=== PATIENT | male | born 1970 | race Caucasian/White ===

== ENCOUNTER 2016-06-05 12:57 | Inpatient (IN) | payer OTHER, MEDICARE ==
[~2016-06-05] VITALS: Ht 162.6 cm; Wt 86.2 kg
[~2016-06-05 12:57] MED LIST: ADVAIR DISKU 11 UNIT INH; BENZTROPINE MESY1 MG PO; BENZTROPINE1 MG PO; JANUMET 1000 MG1 TAB PO; JANUVIA 50MG50 MG PO; LEADER MELATONIN5 MG PO; LITHIUM CARBON300 M3 PO; LITHIUM CARBON450 MG PO; LITHIUM CARBON600 MG PO; METFORMIN1000 MG PO; METHADONE HCL10 M1 PO; NEURONTIN300 MG PO; RISPERDAL1 M1 PO; TRAMADOL50 MG PO; TRAZODONE100 MG PO; ZYPREXA15 MG PO
--- NOTE | 2016-06-05 13:08 | NUR ---
PT TO ED C/O SI THOUGHTS AND HEARING VOICES. STATES INCREASE IN DEPRESSION LATELY. HAS BEEN ABUSING DRUGS SUCH , MORPHINE, BENZO'S, COCAINE AND HEROIN. STATES LAST USED YESTERDAY. STATES HE USES DRUGS SO HE DOESN'T HEAR THE VOICES. DENIES HI. STATES HIS PLAN TO KILL HIMSELF WOULD BE TO TAKE ALL HIS AMBIEN, "I HAVE 60 PILLS". PT TAKEN TO ER ROOM 14 BY MST.
--- NOTE | 2016-06-05 13:12 | ED PSYCHIATRIC COMPLAINT ---
See Addendum History of Present Illness General Chief Complaint: Psychiatric Related Complaint Stated Complaint: + SI/HEARING VOICES Source: patient Exam Limitations: no limitations Vital Signs & Intake/Output Vital Signs & Intake/Output Vital Signs Date Time Temp Pulse Resp B/P Pulse O2 O2 Flow FiO2 Ox Delivery Rate 06/06 0655 97.9 83 18 153/87 96 Room Air 06/05 2253 98.2 96 16 142/84 94 Room Air 06/05 1847 98 06/05 1303 96.5 82 20 141/82 98 Room Air ED Intake and Output 06/06 0000 06/05 1200 Intake Total 0 Output Total Balance 0 Intake, Oral 0 Patient 190 lb Weight Allergies Coded Allergies: trazodone (Severe, PRIAPISM 12/25/15) hydroxyzine (From Vistaril) (Intermediate, RESTLESSNESS, SHAKINESS 12/25/15) diphenhydramine (From BENADRYL) (Mild, shaky but not as bad as Vistaril 02/02/16 ) ibuprofen (not to take ibuprofen/Motrin while on [place] prophylaxis 02/03/16) Reconcile Medications Amlodipine Besylate 5 MG TABLET 1 TAB PO DAILY BP (Reported) Benztropine Mesylate 0.5 MG TABLET 1 TAB PO TID MENTAL HEALTH (Reported) Fluoxetine HCl 10 MG CAPSULE 1 CAP PO DAILY MENTAL HEALTH (Reported) Fluticasone/Salmeterol (Advair 250-50 Diskus) 250 MCG-50 MCG/DOSE BLST.W.DEV 1 PUF INH BID RESPIRATORY (Reported) Gabapentin 300 MG CAPSULE 1 CAP PO TID UNKNOWN (Reported) Insulin NPH Human Isophane (Novolin N) 100 UNIT/ML VIAL 10 UNITS SC BID DM ( Reported) Levalbuterol Tartrate (Xopenex Hfa) 45 MCG/ACTUATION HFA.AER.AD 1-2 PUF INH Q4H PRN WHEEZE (Reported) [place] Carbonate 300 MG CAPSULE 1 CAP PO QAM MENTAL HEALTH (Reported) [place] Carbonate 300 MG TABLET 2 TAB PO QHS MENTAL HEALTH (Reported) Metformin HCl 850 MG TABLET 1 TAB PO BID DM (Reported) Mirtazapine 7.5 MG TABLET 1 TAB PO QHS MENTAL HEALTH (Reported) Prednisone (Unknown Strength) TABLET (Unknown Dose) PO AD STEROID TAPER ( Reported) Risperidone 2 MG TABLET 2 TAB PO QHS UNKNOWN (Reported) Sitagliptin Phosphate (Januvia) 100 MG TABLET 1 TAB PO DAILY DM (Reported) Zolpidem Tartrate 10 MG TABLET 1 TAB PO QPM SLEEP (Reported) Triage Note: PT TO ED C/O SI THOUGHTS AND HEARING VOICES. STATES INCREASE IN DEPRESSION LATELY. HAS BEEN ABUSING DRUGS SUCH , MORPHINE, BENZO'S, COCAINE AND HEROIN. STATES LAST USED YESTERDAY. STATES HE USES DRUGS SO HE DOESN'T HEAR THE VOICES. DENIES HI. STATES HIS PLAN TO KILL HIMSELF WOULD BE TO TAKE ALL HIS AMBIEN, "I HAVE 60 PILLS". PT TAKEN TO ER ROOM 14 BY MST. Triage Nurses Notes Reviewed? yes Onset: Gradual Duration: week(s): (1) Timing: recent history Severity: severe Severity Numbers: 10 Associated Symptoms: anxiety, impaired concentration, insomnia, suicidal ideation HPI: Patient is a 46-year-old male with history of depression and anxiety presenting to the emergency department with chief complaint of suicidal ideation. Also reporting auditory hallucinations. The voices are telling him to do drugs. Patient reports that he is a polysubstance abuser, uses cocaine, heroin. Denies alcohol use. Denies any visual hallucinations. He is unsure if he isn't taking his mood stabilizing medications. He sees Dr. ARNDT. Unsure the last time he saw him. Denies any nausea vomiting fevers or chills chest pain or shortness of breath. Denies palpitations. (ENE BETANCOURT,DAYSI) Past History Travel History Traveled to [place] past 21 day No Medical History Any Pertinent Medical History? see below for history Neurological: NONE EENT: NONE Cardiovascular: NONE Respiratory: asthma Gastrointestinal: NONE Hepatic: hepatitis C Renal: NONE Musculoskeletal: leg and right arm pain due to past surgeries Psychiatric: anxiety, chronic pain disorder, depression, opioid dependence, psychosis (with schizoaffective episodes), schizo affective disorder, substance abuse, Schizoaffective disorder, bipolar type, severe; MRE mixed, with psychotic features. Cocaine use disorder. Cocaine intoxication. Sedative hypnotic use disorder (benzodiazepines). Benzodiazepine intoxication. Opioid use disorder. Opioid intoxication. Cocaine Use Disorder Cocaine Intoxication Benzo.(Xanax)Use Disorder Benzo. 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 No (DAYSI NEAL) Review of Systems Review of Systems Constitutional: Reports: no symptoms. Comments Review of systems: See HPI, All other systems negative. Constitutional, no chills fever or weight loss HEENT: No visual changes no sore throat no congestion Cardiovascular: No chest pain ,palpitation Skin, no jaundice no rashes Respiratory: No dyspnea cough sputum or hemoptysis GI: No nausea no vomiting : No dysuria No hematuria Muscle skeletal: no back pain, no neck pain, Neurologic: No numbness no confusion Psych: INCREASED STERSS AND DEPRESSION Heme/endocrine: No bruising no bleeding no polyuria or polydipsia Immunology: No splenectomy or history of AIDS (DAYSI NEAL) Physical Exam Physical Exam General Appearance: well developed/nourished, no apparent distress, alert, awake , comfortable Neurological/Psychiatric: oriented x 3 Comments: Well-developed well-nourished person in no acute distress HEENT: Pupils equally round and reactive to light and accommodation. Nose is atraumatic. Neck: Normal inspection Back: NontendeR Cardiovascular: Regular rate and rhythms no murmurs rubs or gallops, normal JVP Respiratory: Chest nontender. No respiratory distress.breath sounds clear to auscultation bilaterally Extremity: No edema Neuro: Alert oriented x3 Skin: No appreciable rash on exposed skin, skin is warm and dry. Psych: Flattened affect SAD PERSONS SAD PERSONS Response Value Male Sex? yes 1 Age <19 or >45 years? yes 1 Depression/Hopelessness? yes 2 Previous Attempts/Psych Care yes 1 Excessive Ethanol/Drug Use? yes 1 Rational Thinking Loss? yes 2 Social Support? has no support 1 Stated Future Intent? yes 2 Total 11 SAD PERSONS Done? yes (DAYSI NEAL) Progress Differential Diagnosis: A SUBSTANCE ABUSE, MAJOR DEPRESSIVE DISORDER, MOOD DISORDER Plan of Care: Orders Procedure Date/time Status Regular Diet 06/06 B Active Admit to inpatient psych 06/06 1012 Active Continuous Observation Monitor 06/06 0926 Active Add-on Test (ER Only) 06/05 1358 Active LITHIUM 06/05 1324 Complete Patient Safety Monitor 06/05 1322 Active URINE DRUG SCREEN FOR ER ONLY 06/05 1312 Complete TSH REFLEX 06/05 131 Complete ETHANOL 06/05 131 Complete COMPREHENSIVE METABOLIC PANEL 06/05 131 Complete CBC WITHOUT DIFFERENTIAL 06/05 131 Complete ED CRISIS PSYCH CONSULT 06/05 1312 Active Laboratory Tests 06/05/16 1325: Urine Opiates Screen > 4000.00 H, Methadone Screen 212, Barbiturate Screen < 60 , Ur Phencyclidine Scrn < 6.00, Amphetamines Screen < 100, U Benzodiazepines Scrn < 85, Urine Cocaine Screen > 1000 H, Urine Cannabis Screen < 5.00 06/05/16 1324: Anion Gap 9, Estimated GFR > 60, BUN/Creatinine Ratio 10.0, Glucose 159 H, Calcium 9.3, Total Bilirubin 0.6, AST 106 H, ALT 107 H, Alkaline Phosphatase 64, Total Protein 6.4, Albumin 3.6, Globulin 2.8, Albumin/Globulin Ratio 1.3, TSH &T3 &Free T4 Intrp 0.565, CBC w Diff NO MAN DIFF REQ, RBC 4.20 L, MCV 86.2, MCH 28.7, RDW 14.1, MPV 7.0 L, Gran % 73.1, Lymphocytes % 20.3 L, Monocytes % 4.4, Eosinophils % 1.8, Basophils % 0.4, Absolute Granulocytes 5.8, Absolute Lymphocytes 1.6, Absolute Monocytes 0.3, Absolute Eosinophils 0.1, Absolute Basophils 0, PUBS MCHC 33.3, [place] < 0.2 L, Serum Alcohol < 10.0 Hand-Off Endorsed To: CLEO CHAPMAN MD Endorsed Time: 170 Pending: consult Comments: Patient will be evaluated for crisis consultation. Dr. Cleo Chapman MD pending consultation. (DAYSI NEAL) Hand-Off Endorsed To: SADIE LINN,YUDY Pink Endorsed Time: 190 Pending: consult (CRISIS) (CLEO CHAPMAN MD) Hand-Off Endorsed To: LOBO AKHTAR DO Endorsed Time: 0700 Pending: consult (SADIE LINN,YUDY Pink) Departure Departure Disposition: STILL A PATIENT Condition: Stable Clinical Impression Primary Impression: Depression Qualifiers: Depression Type: unspecified Qualified Code: F32.9 - Major depressive disorder, single episode, unspecified Referrals: MAIRA CASTELLON (PCP/Family) Departure Forms: Customer Survey General Discharge Information (DAYSI NEAL) PA/STILL PUMP OPERATOR Co-Sign Statement Statement: ED Attending supervision documentation- [X] I saw and evaluated the patient. I have also reviewed all the pertinent lab results and diagnostic results. I agree with the findings and the plan of care as documented in the PA's/STILL PUMP OPERATOR's documentation. [X] I have reviewed the ED Record and agree with the PA's/STILL PUMP OPERATOR's documentation. [] Additions or exceptions (if any) to the PAs/STILL PUMP OPERATOR's note and plan are summarized below: [] (SADIE LINN,YUDY Pink) Departure Comments 06/06/16 The patient was signed out to me by Dr. Dickinson. He is for admission to Inpatient Psychiatry. (LOBO AKHTAR DO)
--- NOTE | 2016-06-05 13:25 | NUR ---
WANDED BY SECURITY, CHANGED INTO BLUE PAPER SCRUBS. LABS DRAWN.
--- NOTE | 2016-06-05 13:28 | NUR ---
BLOOD DRAWN AND SENT TO LAB.
[2016-06-05 13:33] LABS: ABSOLUTE BASOPHIL COUNT 0 /CUMM (0.0-0.2); ABSOLUTE EOSINOPHIL COUNT 0.1 /CUMM (0.0-0.7); ABSOLUTE GRANULOCYTE CT 5.8 /CUMM (1.4-6.5); ABSOLUTE LYMPH COUNT 1.6 /CUMM (1.2-3.4); ABSOLUTE MONOCYTE COUNT 0.3 /CUMM (0.10-0.60); BASOPHIL % 0.4 % (0.0-2.0); EOSINOPHIL % 1.8 % (0-5); GRANULOCYTE % 73.1 % (42.2-75.2); HEMATOCRIT 36.2 % (42-52); MEAN CORPUSCULAR HGB 28.7 PG (27.0-31.0); MEAN CORPUSCULAR HGB CONC 33.3 G/DL (33.0-37.0); MEAN CORPUSCULAR VOLUME 86.2 FL (80.0-94.0); PLATELET COUNT 245 /CUMM (130-400); RBC DISTRIBUTION WIDTH 14.1 % (11.5-14.5); WHITE BLOOD CELL COUNT 7.9 /CUMM (4.8-10.8)
--- NOTE | 2016-06-05 13:35 | NUR ---
2 BELONGINGS BAGS AND PERSONAL DUFFLE TO CLOSET. 1 VALUABLES
--- NOTE | 2016-06-05 13:43 | NUR ---
URINE TRIO SENT TO LAB
[2016-06-05 14:25] LABS: LITHIUM < 0.2 mmol/L (0.6-1.2)
[2016-06-05] MEDS ORDERED: FLUOXETINE HCL10 M2 PO (16:33)
[2016-06-05] MEDS ORDERED: LITHIUM CARBON300 M4 PO (16:33)
[2016-06-05] MEDS ORDERED: RISPERIDONE2 M1 PO (16:33)
[2016-06-05] MEDS ORDERED: MIRTAZAPINE7.5 M1 PO (16:34)
[2016-06-05] MEDS ORDERED: LITHIUM CARBON300 M5 PO (16:36)
[2016-06-05] MEDS ORDERED: PREDNISONE5 M1 PO (16:36)
[2016-06-05] MEDS ORDERED: NOVOLIN N100 UNIT/1 SC (16:37)
[2016-06-05] MEDS ORDERED: ADVAIR 250-501 EACH INH (16:38)
[2016-06-05] MEDS ORDERED: BENZTROPINE ME0.5 M1 PO (16:38)
[2016-06-05] MEDS ORDERED: AMLODIPINE BESYL5 M1 PO (16:38)
[2016-06-05] MEDS ORDERED: JANUVIA100 M1 PO (16:38)
[2016-06-05] MEDS ORDERED: GABAPENTIN300 M2 PO (16:38)
[2016-06-05] MEDS ORDERED: XOPENEX HFA15 GM INH (16:39)
[2016-06-05] MEDS ORDERED: METFORMIN HCL850 M1 PO (16:39)
[2016-06-05] MEDS ORDERED: ZOLPIDEM TARTRA10 M1 PO (16:39)
--- NOTE | 2016-06-05 18:11 | NUR ---
PT SLEEPING, SITTER PRESENT FOR SAFETY
--- NOTE | 2016-06-05 18:17 | NUR ---
Crisis evaluation completed and reviewed with on - call psychiatrist Dr. Muñoz. Patient to be held until an inpatient psychiatric admission can be secured. No availability at [facility] currently. Bed search to be done for other hospitals.
--- NOTE | 2016-06-05 18:52 | NUR ---
RT AT BEDSIDE FOR ALBUTEROL TX AND PHARM CALLED FOR SYMBACORT
--- NOTE | 2016-06-05 19:16 | ED PSYCH CRISIS CONSULTATION ---
See Addendum Crisis Consult Basic Assessment Date of Consult: 06/05/16 Responsible Person/Accompanied By: Patient drove himself to emergency room. Insurance Authorization: Insurance #1: Insurance name: MEDICARE A Phone number: Policy number: [id number] Group number: Authorization number: ED Provider: Patient's ED Provider: DAYSI NEAL Primary Care Physician: Patient's PCP: MAIRA CASTELLON PCP's Current Psychiatrist: Dr. Minerva Herrera Chief Complaint: Psychiatric - Suicidal ideation Patient's Quote: "Cause I wanna kill myself...I'll be at peace.Is there a reason not to?" Present Illness: Patient is a 46 year old male who presents to the emergency department with suicidal ideation, intent, and a plan to overdose with ~2 whole bottles of Ambien. Patient reports he drove himself to the emergency department to find out if "there's a reason not to take the pills." Pt. is requesting to speak with Dr. Gene Klein, a staff psychiatrist at [place]. Pt. denies any recent changes, stressors, or events which led to increasing suicidality. Pt. indicates he has support of a visiting nurse and a residential door unit installer. Pt. is on lithium medication as well as several other psychotropics. Pt. endorses visual and audio hallucinations with content of a deep male "demon" voice and sight of decomposing bodies. Pt. did not identify any collateral contacts - he expressed a fear they would stop him from following through with his suicide plan. Pt. states "I want them to find my notes...it felt good good to buy those prescriptions...I'll be at peace." Pt. indicates one previous suicide attempt ~6 years ago by consuming unspecified prescription pills. Pt. reports extreme leg pain (7 on a 1-10 scale) and denies other somatic complaints. Patient's urine toxicology report is positive for opioids and cocaine which pt. admits to taking a few days ago. Pt. has longstanding substance use and mental health issues secondary to schizoaffective / bipolar disorder. *See collateral note Patient's Address: [address] [place] [address] Other Phone Number: Who Do You Live With? Patient/Self Family/Informants Interviewed: No family could be reached. Pt. declined offering any family contacts. Collateral obtained from [facility] and [facility]. Allergies - Coded Allergies: trazodone (Severe, PRIAPISM 12/25/15) hydroxyzine (From Vistaril) (Intermediate, RESTLESSNESS, SHAKINESS 12/25/15) diphenhydramine (From BENADRYL) (Mild, shaky but not as bad as Vistaril 02/02/16 ) ibuprofen (not to take ibuprofen/Motrin while on [place] prophylaxis 02/03/16) Current Medications - Scheduled Medications Amlodipine Besylate 5 MG TABLET 1 TAB PO DAILY BP #15 (Reported) Entered as Reported by RAND MARIANO on 06/05/16 1638 Benztropine Mesylate 0.5 MG TABLET 1 TAB PO TID MENTAL HEALTH #45 (Reported) Entered as Reported by RAND MARIANO on 06/05/16 1638 Fluoxetine HCl 10 MG CAPSULE 1 CAP PO DAILY MENTAL HEALTH #30 (Reported) Entered as Reported by RAND MARIANO on 06/05/16 1633 Fluticasone/Salmeterol (Advair 250-50 Diskus) 250 MCG-50 MCG/DOSE BLST.W.DEV 1 PUF INH BID RESPIRATORY #60 (Reported) Entered as Reported by RAND MARIANO on 06/05/16 1638 Gabapentin 300 MG CAPSULE 1 CAP PO TID UNKNOWN #45 (Reported) Entered as Reported by RAND MARIANO on 06/05/16 1638 Insulin NPH Human Isophane (Novolin N) 100 UNIT/ML VIAL 10 UNITS SC BID DM #10 VIAL (Reported) Entered as Reported by RAND MARIANO on 06/05/16 1637 [place] Carbonate 300 MG CAPSULE 1 CAP PO QAM MENTAL HEALTH #90 (Reported) Entered as Reported by RAND MARIANO on 06/05/16 1633 [place] Carbonate 300 MG TABLET 2 TAB PO QHS MENTAL HEALTH (Reported) Entered as Reported by RAND MARIANO on 06/05/16 1636 Metformin HCl 850 MG TABLET 1 TAB PO BID DM #30 (Reported) Entered as Reported by RAND MARIANO on 06/05/16 1639 Mirtazapine 7.5 MG TABLET 1 TAB PO QHS MENTAL HEALTH #30 (Reported) Entered as Reported by RAND MARIANO on 06/05/16 1634 Prednisone (Unknown Strength) TABLET (Unknown Dose) PO AD STEROID TAPER #30 ( Reported) Entered as Reported by RAND MARIANO on 06/05/16 1636 Risperidone 2 MG TABLET 2 TAB PO QHS UNKNOWN #60 (Reported) Entered as Reported by RAND MARIANO on 06/05/16 1633 Sitagliptin Phosphate (Januvia) 100 MG TABLET 1 TAB PO DAILY DM #15 (Reported ) Entered as Reported by RAND MARIANO on 06/05/16 1638 Zolpidem Tartrate 10 MG TABLET 1 TAB PO QPM SLEEP #15 (Reported) Entered as Reported by RAND MARIANO on 06/05/16 1639 Scheduled PRN Medications Levalbuterol Tartrate (Xopenex Hfa) 45 MCG/ACTUATION HFA.AER.AD 1-2 PUF INH Q4H PRN WHEEZE #15 (Reported) Entered as Reported by RAND MARIANO on 06/05/16 1639 Laboratory Results: Laboratory Tests 06/05/16 1325: Urine Opiates Screen > 4000.00 H, Methadone Screen 212, Barbiturate Screen < 60 , Ur Phencyclidine Scrn < 6.00, Amphetamines Screen < 100, U Benzodiazepines Scrn < 85, Urine Cocaine Screen > 1000 H, Urine Cannabis Screen < 5.00 06/05/16 1324: Anion Gap 9, Estimated GFR > 60, BUN/Creatinine Ratio 10.0, Glucose 159 H, Calcium 9.3, Total Bilirubin 0.6, AST 106 H, ALT 107 H, Alkaline Phosphatase 64, Total Protein 6.4, Albumin 3.6, Globulin 2.8, Albumin/Globulin Ratio 1.3, TSH &T3 &Free T4 Intrp 0.565, CBC w Diff NO MAN DIFF REQ, RBC 4.20 L, MCV 86.2, MCH 28.7, RDW 14.1, MPV 7.0 L, Gran % 73.1, Lymphocytes % 20.3 L, Monocytes % 4.4, Eosinophils % 1.8, Basophils % 0.4, Absolute Granulocytes 5.8, Absolute Lymphocytes 1.6, Absolute Monocytes 0.3, Absolute Eosinophils 0.1, Absolute Basophils 0, PUBS MCHC 33.3, [place] < 0.2 L, Serum Alcohol < 10.0 Past History Past Medical History Any Pertinent Medical History? unobtainable Neurological: NONE EENT: NONE Cardiovascular: NONE Respiratory: asthma Gastrointestinal: NONE Hepatic: hepatitis C Renal: NONE Musculoskeletal: leg and right arm pain due to past surgeries Psychiatric: anxiety, chronic pain disorder, depression, opioid dependence, psychosis (with schizoaffective episodes), schizo affective disorder, substance abuse, Schizoaffective disorder, bipolar type, severe; MRE mixed, with psychotic features. Cocaine use disorder. Cocaine intoxication. Sedative hypnotic use disorder (benzodiazepines). Benzodiazepine intoxication. Opioid use disorder. Opioid intoxication. Cocaine Use Disorder Cocaine Intoxication Benzo.(Xanax)Use Disorder Benzo. 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 Pt. averted suicide plan by driving himself to the hospital. Pt. has support of an in-home nursing provider. Physical Limitations (Interventions): Impaired functioning in right arm. Psychiatric Treatment History Psych Treatment 1 Psychiatric Treatment Yes Inpatient Treatment Yes Outpatient Treatment Yes Location of Treatment [facility] Reason for Treatment Psychiatric (psychosis) Dates of Treatment Treatment dates back to 2011 for CPS, most recent discharge 01/2016 Response to Treatment Inconsistent with poor - fair response and limited sustainable periods of stability. Psych Treatment 2 Psychiatric Treatment Yes Inpatient Treatment Yes Outpatient Treatment Yes Location of Treatment [facility] Reason for Treatment Psychosis / Schizoaffective Disorder Dates of Treatment Since 2012 Response to Treatment Fair / Poor Diagnosis by History: Schizoaffective disorder, bipolar type Opioid Use D/O Stimlulant(Cocaine) Use D/O Substance Use/Abuse History Drug Use/Abuse 1 Substances Used/Abused Yes Substance Used/Abused Cocaine First Use Unspecified Last Used Past week How much used/taken Unspecified How often Patient reports he only used cocaine once this past week. For how long Longstanding susbtance abuse Route of use Inhalation Drug Use/Abuse 2 Substances Used/Abused Yes Substance Used/Abused Non-Prescribed Opiates First Use Unspecified Last Used Past week How much used/taken Unspecified How often Patient asserts only single use in thepast week For how long Unknown Route of use Ingestion Substance Abuse Treatment Substance Abuse Treatment Past Substance Abuse [place] Yes Inpatient Treatment Yes Outpatient Treatment Yes Location of Treatment IP - [facility], [facility] [place] Reason for Treatment Substance use / Methadone maintanence Dates of Treatment Unknown Response to Treatment Varied Comments: Patient was scheduled to complete an intake at [facility] at [place], [place] for substance use counseling in addition to his methadone maintanence. Current Mental Status Mental Status Orientation: Person, Place, Situation Affect: Blunted, Constricted, Depressed, Flat Speech: Soft Neuro-vegetative: Anhedonia, Loss of Interest Appearance Appearance- Dress/Hygiene: Pt. dressed in hospital attire. Pt. has a visible scar in his right arm. Pt. had limited eye contact. Behaviors Thought Process: Disorganized Thought Content: Auditory Hallucinations, Delusions, Paranoid, Visual Hallucinations Memory: WNL Insight: Poor SI/HI Risk Assessment Past Suicidal Ideation/Attempts Yes Current Suicidal Ideation/Att Yes Past Homicidal Ideation/Att: Yes (Pt. indicates past HI) Current Homicidal Ideation/Attempts No (Pt. denies) Degree of Intent: Made Preparations, Plan, States Intent Danger To: Self Gravely Disabled: Inability, Lack of Insight, Poor Impulse Control, Poor Judgment Risk Factors: access to lethal means, history of suicide atmpts, SA/MH hospitalized, substance abuse, isolate/no social support, poor impulse control, lack of outcome concern, lives alone, male, limited support Lethality Ratin PTSD Checklist PTSD Done? patient declined ED Management Sitter: Yes Restraints: No DSM5/PS Stressors/Medical Prob Diagnosis' (DSM 5, Stressors, Medical): F25.0 Schizoaffective disorder, Bipolar type F33.2 Major depressive disorder, Recurrent episode, Severe F11.20 Opioid use disorder, Moderate F14.20 Stimulant (cocaine) use disorder, Moderate Current GAF: 22 Comments: Actively suicidal with plan to overdose on prescription sleep medication. History of previous suicide attempts. Patient is not current compliant with prescribed psychotropic medications. Departure Disposition Psych Medical Clearance Date: 06/05/16 Medically Cleared at: 1745 Time Started: 1744 Time Ended: 1844 Psychiatrist Consulted: Khari Muñoz MD Date Disposition Established: 06/05/16 Time Disposition Established: 1844 Plan for Disposition - Modality: Bed Search Rationale for Disposition: Patient is assessed with high risk of harm to self due to expressed suicidal ideation with intent and plan. Patient has access to lethal means. Crisis evaluation and collateral information reviewed with on-call psychiatrist Dr. Muñoz. Currently, there is no availability at [facility]'s psychiatric unit so patient will be likely held overnight and referred to other hospitals w/ a bed search. Referrals MAIRA CASTELLON (PCP/Family)
--- NOTE | 2016-06-05 19:27 | ED PSY CRISIS COLLATERAL NOTE ---
Collateral Note Collateral Note Family/Inform/[place] Contacts: This keno writer/runner contacted patient's visiting nurse from [facility] - [phone] Nurse, Sushma Carreon, states patient has been avoiding him for the past 4 days and asked to be discharged from the agency. Patient is not currently complaint with his psychotropic medications. Nurse reports pt. was recently discharged from [facility]. Patient's medication management provider is Dr. Minerva Herrera per nurse report (Dr. Herrera could not be reached by this keno writer/runner. ) This keno writer/runner contacted [facility]'s inpatient unit [phone] and spoke to EREN Levi who is familiar with patient's last admission. RN reports patient was discharge on May 03 after being admitted for psychosis w/ delusions and also a medical issue (asthma exacerbation). RN advised patient has been hospitalized several times and that his baseline is typically psychosis with substance use. RN indicates patient achieves stability fairly quickly once psychotropic interventions are administered. RN reports patient receives methadone maintanence from [facility] and was referred for an intake at [facility] - both in [place], [place]. This keno writer/runner attempted to contact patient's father Celestine Olvera but the number in emergency contact section was not in service.
--- NOTE | 2016-06-05 20:16 | NUR ---
PT LYING ON BED IN ROOM 14 WITH TV ON AND LIGHTS OFF. PT HAS BLANKET OVER FACE. ADVISED PT MD HAD ORDERED ZYPREXA 10MG FOR HIM, BUT HE REFISED, ASKING FOR ATIVAN. WILL MAKE DR NOEL AWARE.
--- NOTE | 2016-06-05 20:27 | NUR ---
PT MEDICATED WITH ATIVAN 2MG IV
--- NOTE | 2016-06-05 21:06 | NUR ---
PT ASLEEP ON BACK, NOTED BY SNORING. PT'S RESPIRATIONS EQUAL AND UNLABORED AT 16/MIN.
--- NOTE | 2016-06-05 22:53 | NUR ---
PT ASLEEP, RESPIRATIONS EQUAL AND UNLABORED. SITTER AT DOOR.
--- NOTE | 2016-06-06 00:19 | NUR ---
PATIENT SLEEPING AT THIS TIME W/ REGULAR RESPIRATIONS NOTED. SITTER REMAINS W/ PATIENT.
--- NOTE | 2016-06-06 02:02 | NUR ---
PATIENT CONTINUES TO SLEEP AT THIS TIME, REGULAR RESPIRATIONS NOTED. SITTER REMAINS W/ PATIENT.
--- NOTE | 2016-06-06 04:27 | NUR ---
PATIENT CONTINUES TO SLEEP AT THIS TIME W/ REGULAR RESPIRATIONS NOTED. SITTER REMAINS W/ PATIENT. NOTED TO BE TURNING SELF FOR PPOSITION CHANGES.
--- NOTE | 2016-06-06 06:38 | NUR ---
PATIENT CONTINUES TO SLEEP AT THIS TIME W/ REGULAR RESPIRATIONS NOTED. SITTER REMAINS W/ PATIENT.
--- NOTE | 2016-06-06 07:59 | NUR ---
ASSUMED CARE OF PT WHO STATES "DO YOU HAVE ANY POISON?, SOMETHING LIKE DRANO ON YOU?" THIS WOOD HEEL BACK LINER ASSURED PT THAT SHE DOESN'T HAVE ANY DRANO ON HER. PT STATES "I KNOW MY FAMILY WANTS ME TO GO PEACEFULLY IN MY SLEEP" PT REASSURED, MEDICATED WITH 2 MG PO ATIVAN. PT PREVIOUSLY ATE HIS BREAKFAST TRAY. SITTERS REMAIN AT DOORWAY. WILL CTM
--- NOTE | 2016-06-06 11:59 | NUR ---
PT MEDICATED WITH ATIVAN 2MG PO. PT ANXIOUS AND WALKING OUT OF AREA. PENDING TRANSFER DOWN TO [facility]. PT EATING LUNCH AT THIS TIME.
--- NOTE | 2016-06-06 13:20 | NUR ---
PT MEDICATED WITH NORVASC 5MG AND NEURONTIN 300MG PER EMAR. PT ANXIOUS, CONTINUES TO ASK "WHEN WILL I BE GOING DOWNSTAIRS?" PT ADVISED THAT HE WILL BE TRANSFERRING DOWN TO [facility] THIS AFTERNOON.
--- NOTE | 2016-06-06 14:41 | NUR ---
PT MEDICATED WITH ATIVAN 1MG AND CLONIDINE 0.1MG. PT ECPRESSED HE WANTS TO GO DOWNSTAIRS, BUT THERE ARE NO MORE BEDS AVAILABLE.
--- NOTE | 2016-06-06 15:30 | NUR ---
PT MEDICATED WITH ATIVAN 2MG AND NEURONTIN 300MG FOR ANXIETY/AGITATION. PT NEEDS FREQUENT REDIRECTION FOR LANGUAGE AND BEHAVIOR.
--- NOTE | 2016-06-06 15:45 | NUR ---
DR COTTRELL AT BEDSIDE TO MEET WITH PATIENT.
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
--- NOTE | 2016-06-06 16:15 | NUR ---
Pt remains on a PEC and a bed search is being done for inpt psych tx.Pt has been refused by [facility] and [facility]
--- NOTE | 2016-06-06 16:20 | NUR ---
[facility] isw reviewing pt's clinical
--- NOTE | 2016-06-06 18:03 | NUR ---
PT MEDICATED WITH EVENING MEDS - NEURONTIN 200MG, FLEXERIL 5MG, ZYPREXA 10MG, COZAAR 50MG, GLUCOPHAGE 1850MG, LYRICA 100MG AND ZOLOFT 100MG. PT WAS AWOKEN FOR MEDS. PT CALM AND COOPERATIVE AT THIS TIME.
--- NOTE | 2016-06-06 19:30 | NUR ---
PT SLEEPING AT THIS TIME. RESPIRATIONS EQUAL AND UNLABORED. SITTER AT DOOR FOR SAFETY.
--- NOTE | 2016-06-06 20:55 | ED PSYCHIATRIST/APRN CONSULT ---
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 Has polysubstance dependence by hx., says he used on day"everything that I could put my hands on so as to not feel the pain anymore.I am so depressed and hopeless, my life does not mean anything..." Also c/o AH, has paranoid ideation"they all want to hurt me". Needs inpatient stabilization for safety, bedsearch is ongoing, the patient agrees to treatment. We recommended, with the patient's accord, risperidone 4 mg at bedtime, ativan 0.5 mg daily prn anxiety, melatonin 3 mg at bedtime prn insomnia. Requested Suboxone, agrees to take clonidine insteead for signs/symptoms of opioid withdrawal. We will f/u, says and also believes that he will not kill/hurt himself while in the ER/hospital.
--- NOTE | 2016-06-06 21:38 | NUR ---
CALLED PHARMACY FOR 9PM AND 10PM MEDS.
--- NOTE | 2016-06-07 01:30 | NUR ---
SLEEPING AT THIS TIME. VS TAKEN. SITTER AT DOOR.
--- NOTE | 2016-06-07 03:19 | NUR ---
PT SLEEPING WITH SNORING RESPIRATIONS. REGULAR RR. SITTER IN DOORWAY.
--- NOTE | 2016-06-07 05:26 | NUR ---
PT SLEEPING WITH REGULAR RR. SITTER IN DOORWAY
--- NOTE | 2016-06-07 08:24 | NUR ---
PT SLEEPING, SITTER AT DOORWAY
--- NOTE | 2016-06-07 10:41 | NUR ---
MEDICATED ORDERED (SEE MAR)
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
--- NOTE | 2016-06-07 14:44 | NUR ---
PT REQUEST FOOD. ORDERED TWO HAM AND CHEESE WRAP FROM DIETARY
--- NOTE | 2016-06-07 14:48 | NUR ---
PT ON PHONE OKAYED BY CRISISES WORKER TO BE ON PHONE
--- NOTE | 2016-06-07 15:08 | NUR ---
PT MEDICATED WITH CATAPRES,COGENTIN, AND PREDNISONE PER EMAR. BG 126 AT THIS TIME. PT C/O ANXIETY, MEDICATED WITH ATIVAN PER EMAR. AWAITING FOOD TRAY. SITTER AT DOORWAY.
--- NOTE | 2016-06-07 15:40 | NUR ---
RECALLED DIETARY FOR ETA OF FOOD TRAY...NO ANSWER WILL RETRY IN A FEW MINUTES AGAIN
--- NOTE | 2016-06-07 15:50 | NUR ---
PT GIVEN FOOD TRAY AND IS EATING AT THIS TIME
--- NOTE | 2016-06-07 16:48 | NUR ---
PT SLEEPING AT THIS TIME. ADQUATE BILATERAL CHEST RISE
--- NOTE | 2016-06-07 17:13 | NUR ---
PT TO BATHROOM
--- NOTE | 2016-06-07 18:20 | NUR ---
PT MEDICATED WITH METFORMIN AND CATAPRES PER EMAR. VSS. SITTER AT DOORWAY.
--- NOTE | 2016-06-07 19:36 | NUR ---
PT GETTING ANXIOUS AND AGITATED, REQUESTING ATIVAN, MD NELSON MADE AWARE. PT MEDICATED WITH ATIVAN PER EMAR. SITTER AT DOORWAY.
--- NOTE | 2016-06-07 23:02 | NUR ---
PT REFUSED NIGHT MEDS AT THIS TIME. BG 147, PT REFUSED INSULIN. VSS. SITTER AT DOORWAY. WILL TRY TO MEDICATE LATER.
--- NOTE | 2016-06-08 00:32 | NUR ---
PATIENT AWAKE AND AMBULATORY TO BATHROOM, CONTINUES TO DECLINE NIGHTTIME MEDS THAT ARE ORDERED STATING "I DON'T NEED THEM." RETURNS TO ROOM W/ STABLE GAIT NOTED. RESTING ON STRETCHER. LIGHTS DIMMED. SITTER REMAINS W/ PATIENT.
--- NOTE | 2016-06-08 02:09 | NUR ---
PATIENT CONTINUES TO SLEEP AT THIS TIME W/ REGULAR RESPIRATIONS NOTED. SITTER REMAINS AT DOORWAY. LIGHTS IN PATIENT ROOM REMAIN DIMMED.
--- NOTE | 2016-06-08 03:22 | NUR ---
PATIENT CONTINUES TO SLEEP AT THIS TIME W/ REGULAR RESPIRATIONS NOTED, SELF TURNING ON STRETCHER. SITTER REMAINS W/ PATIENT.
--- NOTE | 2016-06-08 04:25 | NUR ---
PATIENT CONTINUES TO SLEEP AT THIS TIME W/ REGULAR RESPIRATIONS NOTED. SITTER REMAINS W/ PATIENT. PATIENT'S LIGHTS DIMMED.
--- NOTE | 2016-06-08 06:30 | NUR ---
PATIENT C/O RACING THOUGHTS AND ANXIETY, COOPERATIVE AND NON-THREATENING TO STAFF. SITTER REMAINS W/ PATIENT.
--- NOTE | 2016-06-08 07:30 | NUR ---
ASSUMED CARE, AGSUMED CARE, AGITATED, WALKING OUT OF ROOM, BANGING ON FRONT OFFICE HELP'S DOOR, UPSET ABOUT LENGTH OF STAY. WALKING IN HALLWAY, YELLING. RE-DIRECTED BACK TO ROOM. PT DEMANDING ATIVAN. DR. AKHTAR NOTIFIED.
--- NOTE | 2016-06-08 07:46 | NUR ---
MEDICATED WITH ATIVAN 2 MG PO.
--- NOTE | 2016-06-08 10:04 | NUR ---
FINHER STICK 137
--- NOTE | 2016-06-08 11:43 | NUR ---
REPORT GIVEN TO DEMARCUS IN [facility] AND DIST BOOKED WITH [facility]
[2016-06-08 12:24] VITALS: BP 98/61
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
--- NOTE | 2016-06-08 15:41 | SOCIAL WORKER SOCIAL HX PSYCH ---
Social History Basic Assessment Curr Source of Income/Entitlements: Medicaid, Medicare Present Problem: Present Illness: Patient is a 46 year old male who presents to the emergency department with suicidal ideation, intent, and a plan to overdose with ~2 whole bottles of Ambien. Patient reports he drove himself to the emergency department to find out if "there's a reason not to take the pills." Pt. is requesting to speak with Dr. Gene Klein, a staff psychiatrist at [facility]. Pt. denies any recent changes, stressors, or events which led to increasing suicidality. Pt. indicates he has support of a visiting nurse and a residential substance abuse counselor. Pt. is on lithium medication as well as several other psychotropics. Pt. endorses visual and audio hallucinations with content of a deep male "demon" voice and sight of decomposing bodies. Pt. did not identify any collateral contacts - he expressed a fear they would stop him from following through with his suicide plan. Pt. states "I want them to find my notes...it felt good good to buy those prescriptions...I'll be at peace." Pt. indicates one previous suicide attempt ~6 years ago by consuming unspecified prescription pills. Pt. reports extreme leg pain (7 on a 1-10 scale) and denies other somatic complaints. Patient's urine toxicology report is positive for opioids and cocaine which pt. admits to taking a few days ago. Pt. has longstanding substance use and mental health issues secondary to schizoaffective / bipolar disorder. 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 Mosotho Language(s) Spoken At Home: Mosotho Allergies - Coded Allergies: trazodone (Severe, PRIAPISM 12/25/15) hydroxyzine (From Vistaril) (Intermediate, RESTLESSNESS, SHAKINESS 12/25/15) diphenhydramine (From BENADRYL) (Mild, shaky but not as bad as Vistaril 02/02/16 ) ibuprofen (not to take ibuprofen/Motrin while on [place] prophylaxis 02/03/16) Current Medications - Scheduled Medications Amlodipine Besylate 5 MG TABLET 1 TAB PO DAILY BP #15 (Reported) Entered as Reported by RAND MARIANO on 06/05/16 1978 Fluoxetine HCl 10 MG CAPSULE 1 CAP PO DAILY MENTAL HEALTH #30 (Reported) Entered as Reported by RAND MARIANO on 06/05/16 1633 Fluticasone/Salmeterol (Advair 250-50 Diskus) 250 MCG-50 MCG/DOSE BLST.W.DEV 1 PUF INH BID RESPIRATORY #60 (Reported) Entered as Reported by RAND MARIANO on 06/05/16 1638 Gabapentin 300 MG CAPSULE 1 CAP PO TID UNKNOWN #45 (Reported) Entered as Reported by RAND MARIANO on 06/05/16 1638 Insulin NPH Human Isophane (Novolin N) 100 UNIT/ML VIAL 10 UNITS SC BID DM #10 VIAL (Reported) Entered as Reported by RAND MARIANO on 06/05/16 1637 Last Taken: At an unknown date and time [place] Carbonate 300 MG CAPSULE 1 CAP PO QAM MENTAL HEALTH #90 (Reported) Entered as Reported by RAND MARIANO on 06/05/16 1633 [place] Carbonate 300 MG TABLET 2 TAB PO QHS MENTAL HEALTH (Reported) Entered as Reported by RAND MARIANO on 06/05/16 1636 Metformin HCl 850 MG TABLET 1 TAB PO BID DM #30 (Reported) Entered as Reported by RAND MARIANO on 06/05/16 1639 Mirtazapine 7.5 MG TABLET 1 TAB PO QHS MENTAL HEALTH #30 (Reported) Entered as Reported by RAND MARIANO on 06/05/16 1634 Prednisone (Unknown Strength) TABLET (Unknown Dose) PO AD STEROID TAPER #30 ( Reported) Entered as Reported by RAND MARIANO on 06/05/16 1636 Risperidone 2 MG TABLET 2 TAB PO QHS UNKNOWN #60 (Reported) Entered as Reported by RAND MARIANO on 06/05/16 1633 Sitagliptin Phosphate (Januvia) 100 MG TABLET 1 TAB PO DAILY DM #15 (Reported ) Entered as Reported by RAND MARIANO on 06/05/16 1638 Scheduled PRN Medications Levalbuterol Tartrate (Xopenex Hfa) 45 MCG/ACTUATION HFA.AER.AD 1-2 PUF INH Q4H PRN WHEEZE #15 (Reported) Entered as Reported by RAND MARIANO on 06/05/16 1639 Discontinued Medications Benztropine Mesylate 0.5 MG TABLET 1 TAB PO TID MENTAL HEALTH #45 (Reported) Discontinued reason: Pt Decision, not taking Zolpidem Tartrate 10 MG TABLET 1 TAB PO QPM SLEEP #15 (Reported) Discontinued reason: Changed to different med Past History Past Medical History Any Pertinent Medical History? unobtainable Neurological: NONE EENT: NONE Cardiovascular: NONE Respiratory: asthma Gastrointestinal: NONE Hepatic: hepatitis C Renal: NONE Musculoskeletal: leg and right arm pain due to past surgeries Psychiatric: anxiety, chronic pain disorder, depression, opioid dependence, psychosis (with schizoaffective episodes), schizo affective disorder, substance abuse, Schizoaffective disorder, bipolar type, severe; MRE mixed, with psychotic features. Cocaine use disorder. Cocaine intoxication. Sedative hypnotic use disorder (benzodiazepines). Benzodiazepine intoxication. Opioid use disorder. Opioid intoxication. Cocaine Use Disorder Cocaine Intoxication Benzo.(Xanax)Use Disorder Benzo. 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 No Relationship w/Mother: "We don't get along because she hates the way I live." Relationship w/Father: "We are close." Any Sibling(s)? Yes Sibling's Gender(s)/Age(s): male Sibling 1:, male Sibling 2: Relationship w/Sibling(s): "Good." Relationship w/Friends: "I have good friends." Family Psych/Sub Abuse/Add Hx: maternal uncle - schizophrenia Abuse/Trauma History Trauma History/Current Trauma: emotional, verbal Victim or Perpretator? victim Patient's Age at Time of Trauma: 6 Abuse/Trauma Treatment: Denies Legal History Legal Guardian/Address/Phone: Self Hx of Juvenile Legal Charges? Yes Hx of Adult Legal Charges? Yes If Yes: misdemeanor, felony List/Date Most Recent Lgl Chgs: Pt will not elaborate on the specifics of his legal hx but previous medical records indicate that many of the charges were drug/alcohol related. Chgs/Dts/Incarcerations/Sentnc Pt reports having been incarcerated 3x's, last time being 10-15 years ago, and will not elaborate further. Civil Proceedings: N/A Domestic Relations Court: N/A Child Protective Serv Involvmnt N/A Psychosocial History Primary Support System: father, sibling(s) Strengths/Capabilities: Pt has stable housing. Pt. averted suicide plan by driving himself to the hospital. Pt. has support of an in-home nursing provider. Physical Limitations (Interventions): Impaired functioning in right arm. Last Physical: Unknown History of Blackouts? Yes Last Blackout: Unknown ADL Limitations: Denies [place]/Social/Peer Relations "I have good friends." Meaningful Activities: Reports loss of interest/enjoyment. Childhood Episcopal: no sikh stated Current Oriental Orthodox Affiliation: no sikh stated Is Spirituality Important to You? Yes Patient's Ethnicity: Azeri Cultural/Ethnic Issues: Denies Are There Developmental Issues? No Milestones Achieved: fine motor, gross motor Psychiatric Treatment History Psych Treatment Inpatient Treatment Yes Outpatient Treatment Yes Location of Treatment [facility] Reason for Treatment Psychosis / Schizoaffective Disorder Dates of Treatment Since 2012 Response to Treatment Fair / Poor Treatment of Prior Episodes: See above Diagnosis: Schizoaffective disorder, bipolar type Opioid Use D/O Stimlulant(Cocaine) Use D/O Psychodynamic Issues: Ongoing substance abuse/chronic relapse, medical problems, lack of sober supports, non-compliance with treatment and medication Risk Factors: access to lethal means, history of suicide atmpts, SA/MH hospitalized, substance abuse, isolate/no social support, poor impulse control, lack of outcome concern, lives alone, male, limited support Substance Use/Abuse History Drug Use/Abuse Substance Used/Abused Non-Prescribed Opiates First Use Unspecified Last Used Past week How much used/taken Unspecified How often Patient asserts only single use in thepast week For how long Unknown Route of use Ingestion Have You Ever Attended ? Yes Substance Abuse Treatment Substance Abuse Treatment Inpatient Treatment Yes Outpatient Treatment Yes Location of Treatment [facility], [facility] Reason for Treatment Substance use / Methadone maintanence Dates of Treatment Unknown Response to Treatment Varied Education History Highest Level of Education: high school/GED Highest Grade Completed: 9th Vocational Year Completed: 0 Number of College Years: 0 HX of Learning Difficulties: None reported Barriers to Learning: None reported Special Communication Needs: None reported Employment History Not in Labor Force: Disabled History Have You Been in The ? No Current Mental Status Mental Status Orientation: Person, Place, Situation Affect: Blunted, Constricted, Depressed, Flat Speech: Soft Neuro-vegetative: Anhedonia, Loss of Interest Appearance Appearance- Dress/Hygiene: Pt. dressed in hospital attire. Pt. has a visible scar in his right arm. Pt. had limited eye contact. Behaviors Thought Process: Disorganized Thought Content: Auditory Hallucinations, Delusions, Paranoid, Visual Hallucinations Memory: WNL Insight: Poor SI/HI Risk Assessment Past Suicidal Ideation/Attempts Yes Current Suicidal Ideation/Att Yes Past Homicidal Ideation/Att: Yes (Pt. indicates past HI) Current Homicidal Ideation/Attempts No (Pt. denies) Degree of Intent: Made Preparations, Plan, States Intent Danger To: Self Gravely Disabled: Inability, Lack of Insight, Poor Impulse Control, Poor Judgment Lethality Ratin - Conclusion and Recommendations for treatment - and discharge planning
[2016-06-08 16:10] VITALS: BP 139/89
[2016-06-08 16:16] VITALS: BP 95/55
[2016-06-08 16:17] VITALS: BP 95/55
[2016-06-08 17:41] VITALS: BP 113/62
[2016-06-08 20:12] VITALS: BP 112/59
--- NOTE | 2016-06-08 20:58 | NUR ---
PT IS CALM, COOPERATIVE WITH STAFF AND PEERS, AND COMPLIANT WITH UNIT RULES. PT IS ESPECIALLY LETHARGIC, SLEEPING WHETHER IN MILIEU, OR IN PT ROOM FOR LONG PERIODS OF TIME. PT INTERACTS A GREATER AMOUNT WITH STAFF THAN PEERS, BUT WILL COMMUNICATE WITH PEERS WHEN DIRECTLY ENGAGED. PT MOOD IS STABLE, AFFECT IS FLAT/CONSTRICTED, COMMUNICATION IS NORMAL, AND APPETITE IS NORMAL. PT MADE A COMMENT ABOUT SI DURING 1600 VITALS. PT CLAIMS TO HAVE A PLAN, THOUGH WOULD NOT BE ABLE TO CARRY OUT ON THE UNIT. WHEN QUESTIONED PT SAID HE WOULD NOT ATTEMPT ANYTHING ON UNIT. CHARGE NURSE WAS NOTIFIED FOLLOWING THE EVENT. BLOOD GLUCOSE LEVEL AT 1630 - 121.
[2016-06-09 08:01] VITALS: BP 109/62
--- NOTE | 2016-06-09 08:54 | CPS MD/APRN INITIAL ASSE PSYCH ---
Psychiatric Admission President And Ceo's Note Reviewed: Yes Patient Seen and Examined: Yes Identifying Information: Patient is a 46 year old male. Chief Complaint: "I came in to see if I could find a reason to not kill myself." Patient states that he did not have a prescriber and so ran out of his psychiatric medications. Reaction to Hospitalization: Calm and cooperative during our visit today. History of Present Illness Onset of Illness: Chronic Circumstances Leading to Admission: Patient states that he drove himself to the hospital after buying his "suicide kit," which includes 60 tablets of Ambien and a pint of vodka. Problem(s) Justifying Need for Admission: Suicidal ideation Past Psychiatric History Past Diagnosis(es)- if any: Schizoaffective disorder, bipolar with history of florid psychotic features. Most recent episode depressed with active suicidal ideation and a plan to overdose on Ambien and vodka. Opioid use disorder-heroin and pills Cocaine use disorder Sedative use disorder/benzodiazepines. Type 2 diabetes Asthma Hepatitis C positive. Past Precipitating Factors- if any: Medication nonadherence. Polysubstance abuse. - Include inpatient and outpatient treatment Treatment History: This is the patient's 13th [facility] admission since 2011, with 5 admissions in 2015 and 5 admissions in 2016. History of Suicide Attempts or Gestures Repeated attempts, gestures and suicidal ideation. Substance Abuse History: Alcohol and polysubstance abuse. Allergies: Coded Allergies: trazodone (Severe, PRIAPISM 12/25/15) hydroxyzine (From Vistaril) (Intermediate, RESTLESSNESS, SHAKINESS 12/25/15) diphenhydramine (From BENADRYL) (Mild, shaky but not as bad as Vistaril 02/02/16 ) ibuprofen (not to take ibuprofen/Motrin while on [place] prophylaxis 02/03/16) Home Med List: Amlodipine 5 mg daily Fluoxetine 10 mg daily Advair 250/50 Gabapentin 300 mg 3 times daily. Insulin NPH [place] 100 mg the morning and 200 mg at night Metformin 850 mg twice daily Mirtazapine 7.5 mg at bedtime Prednisone taper. Risperidone 2 mg at bedtime Januvia 100 mg daily. - Include any medical condition(s) that may - impact the patient's recovery/remission Past History Medical History Any Pertinent Medical History? unobtainable Neurological: NONE EENT: NONE Cardiovascular: NONE Respiratory: asthma Gastrointestinal: NONE Hepatic: hepatitis C Renal: NONE Musculoskeletal: leg and right arm pain due to past surgeries Psychiatric: anxiety, chronic pain disorder, depression, opioid dependence, psychosis (with schizoaffective episodes), schizo affective disorder, substance abuse, Schizoaffective disorder, bipolar type, severe; MRE mixed, with psychotic features. Cocaine use disorder. Cocaine intoxication. Sedative hypnotic use disorder (benzodiazepines). Benzodiazepine intoxication. Opioid use disorder. Opioid intoxication. Cocaine Use Disorder Cocaine Intoxication Benzo.(Xanax)Use Disorder Benzo. 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 Social History Living Situation: Patient has his own apartment in [place]. States that it's a "bad situation in a bad neighborhood." Significant Relationships (family/friends): Father and brother in [place]. Mother and another brother in [facility]. Patient has a sister with whom he is not in contact. Education: High school graduate. Vocation/Occupation: Disabled. Legal: None at this time. States that in the past he had an extensive legal history Healthly Behaviors Screening Tobacco Screening Tobacco Use from ED Docu: Current Daily Use Daily Tobacco Use Amount/Type: => 5 Cigarettes daily - If tobacco counseling indicated - the following topics are required. - #1 Recognizing dangerous situations. - #2 Coping Skills. - #3 Basic information about quitting. Status of Tobacco Cessation Counseling: #1, #2 AND #3 Completed Cessation Med Status: Nicotine Gum Ordered Alcohol Screening - ETOH screen POS if BAL >=80 or Audit-C>= M4/F3 Audit-C Score from Diag Assess: 0 Blood Alcohol Level: Lab Serum Alcohol < 10.0 MG/DL 06/05/16 1324 Alcohol Use Screening Results: Neg per Audit C &/or BAL - If ETOH counseling indicated - the following topics are required. - #1 Express concern about the patient's - drinking at unhealthy levels, include informing - of national norms for moderate drinking: - men <= 14 drinks/week, max 4 drinks/occasion - women <= 7 drinks/week, max 3 drinks/occasion - #2 Providing feedback, including linking alcohol to - negative physical effects (liver injury, hypertension) - negative emotional effects (relationship problems and - depression) - negative occupational consequences (reduced work - performance) - #3 Advising the patient to abstain from alcohol or - to drink below national norms for moderate drinking - (as listed above). Status of ETOH Use Counseling: N/A B/C NO ETOH Use Metabolic Screening - Screen if on a Neuroleptic Medication - Metabolic screening should include: - Blood Pressure, BMI, Glucose or Hgb A1c, & a - Lipid profile from within the past 365 days. Metabolic Screening () Not Applicable, patient not on a neuroleptic. OR ([x]) Patient on a neuroleptic(s) . Enter below results for Glucose or Hemoglobin A1C, and lipid panel if obtained during the last 365 days. BMI: 32.600 Blood Pressure: 123/62 Laboratory Results (If applicable): Lab Cholesterol 181 MG/DL 09/06/15 0822 Cholesterol/HDL Ratio 6 % H 09/06/15 0822 Glucose 159 mg/dL H 06/05/16 1324 HDL Cholesterol 29 mg/dL L 09/06/15 0822 Hemoglobin A1c 7.1 % H 11/08/15 2250 LDL Cholesterol, Calc 120 mg/dL 09/06/15 0822 Triglycerides 164 mg/dL H 09/06/15 0822 Exam and Plan Mental Status Examination Ambulation Status: Patient ambulates with steady gait. Appearance: Appropriate Attitude towards examiner: Calm and cooperative. Psychomotor activity: Within normal limits Behavior: Calm and cooperative Quality of speech: Speech is well articulated, goal-directed, average in rate, volume and tone Affect: Congruent Mood: Sad Suicidal Ideation: "Absolutely." Homicidal Ideation: Denies Hallucinations: Patient reports constant auditory and visual hallucinations. He rates near constant voices saying derogatory things about him. He also hears another voice which is accompanied by a rock 'n roll music, and speaks to him in a language he does not understand. He also has near constant visual hallucinations of "shadows." Paranoid/Delusional Material: Patient continues to believe that the "illuminati" are trying to place chips in him. He has one cut on his left hand and another on his left forearm which he states are from recent attempts to "cut out" the chips and take them out by tweezers. Difficulties with thought organization: Patient speaks clearly during our interview, but clearly suffers from delusional thoughts. Insight: Poor Judgment: Poor Orientation: Alert and oriented to person, place and time. Cognition: Within normal limits Memory Function: Within normal limits, and not tested. Estimate of intellectual functioning: Average Assets/Strengths Patient Identified Assets/Strengths: He does not know at this time Impression/Plan Impression and Plan: This is a 46-year-old man, very well known to this unit. He stopped taking his medication because he no longer had a prescriber. In addition he admits to abusing cocaine, opiates including heroin, Dilaudid and morphine. This appears to be a cycle which the patient has experienced many times before. He reports that he does well when taking his medications, and we will restart the medications he was on when last he was discharged from the hospital. - Include all active medical diagnosis that require tx DSM 5 Diagnosis(es): Schizoaffective disorder, bipolar with history of florid psychotic features. Most recent episode depressed with active suicidal ideation and a plan to overdose on Ambien and vodka. Opioid use disorder-heroin and pills Cocaine use disorder Sedative use disorder/benzodiazepines. Type 2 diabetes Asthma Hepatitis C positive. - Initial Tx Plan for Active Psych & Medical Conditions Treatment Plan: PLAN: The patient will be monitored on the unit for safety, depression, mood stability , suicidal ideation and psychosis. Additional information is needed from collaterals, including mother and brother live in [facility]. Anticipate once clinically stable, that the patient will be discharged to home and family and be referred to [facility] or appropriate outpatient treatment. - Factors that would help patient function - in a less restrictive setting. Factors: Resolution of suicidal ideation.
[2016-06-09 12:08] VITALS: BP 123/62
--- NOTE | 2016-06-09 14:37 | NUR ---
PT IS STABLE WITH CONSTRICTED AFFECT. PT IS VISIBLE WTIHIN THE MILIEU YET DOES NOT ENGAGE MUCH WITH PEERS/STAFF UNLESS PROMPTED. PT ATTENDED WRAPUP BUT DID NOT ATTEND FOCUS GROUP. PT REPORTED FEELINGS OF DEPRESSION AND WAS ENCOURAGED TO GO TO GROUPS HE "APPEARS TO FEEL BETTER" AFTERWARDS. VS ARE STABLE AND CONFIRMS FEELINGS OF SI BUT DENIES ANY PLAN WHILE ON THE UNIT.
--- NOTE | 2016-06-09 14:50 | SOCIAL WORKER TX PLAN PSYCH ---
Treatment Plan - Please Document: - Evidence that there is ongoing collaboration between - the patient and the interdisciplinary team, - including the patient's active participation and - responsibility for engaging in the treatment regimen, - and that the treatment plan is individualized and - relevant to the patient's conditions. - Treatment plan should reflect documentation indicating - that all active therapeutic efforts are included. Strengths/Capabilities: Pt has stable housing. Pt. averted suicide plan by driving himself to the hospital. Pt. has support of an in-home nursing provider. Physical Limitations (Interventions): Impaired functioning in right arm. Patient Identified Trmt Goals: " I want to not be depressed." Discharge Plan: IOP Problem/Goals #1 Problem #1: suicidal ideation Goal (Short Term): Today I will attend 2 groups Today I will identify 2 stressors Today I will identify 2 positive supports Today I will work on recognizing 3 emotions I am feeling Goal (Fci): Be free of suicidal thoughts/attempts Develop 3 coping skills to deal with depression Identify 3 positive support systems to call in crisis Develop a crisis plan with 3 nguyen people Identify 2 positive traits per week about myself Identify 2 things I have to look forward to Identify 2 positive people in my life and 1 thing I appreciate about them Interventions: Learn ways to manage depressive symptoms accordingly and identify positive supports to manage life stressors and mood fluctuations. Modalities: Encourage groups, education on depression, provide CBT treatment, family meeting. DSM5/PS Stressors/Medical Prob Diagnosis' (DSM 5, Stressors, Medical): F25.0 Schizoaffective disorder, Bipolar type F33.2 Major depressive disorder, Recurrent episode, Severe F11.20 Opioid use disorder, Moderate F14.20 Stimulant (cocaine) use disorder, Moderate Current GAF: 22 Treatment Team - Responsibilities of members of the treatment team include: - Medication Management- MD or LAW FIRM RECEPTIONIST - Medication Administration and Monitoring- Nurse - Group Therapy- Occupational Therapist - 1:1 Therapy,Disch Planning,family involvement-Leather Seasoner
--- NOTE | 2016-06-09 15:24 | SOCIAL WORKER PROG NOTE PSYCH ---
Social Work Progress Note Progress Note Met with patient briefly today. Patient reports continued suicidal thoughts and feeling like there is no point to continue living. Patient appeared depressed during our meeting today. Patient was seen attending some groups/activities on the unit today but enaging minimally with peers. Patient reports that he plans to return back to his housing in [place] and they are aware that he is here. Patient reports that it is not an ideal living situation but that he is use to it. Patient reports that although he is having suicidal thoughts, he will not harm himself while in the hospital.
[2016-06-09 16:08] VITALS: BP 128/66
--- NOTE | 2016-06-09 16:27 | History & Physical ---
General Information and [facility] MD Statement: I have seen and personally examined GERTRUDE URBINA and documented this H&P. The patient is a 46 year old M who presented with a patient stated chief complaint of hearing voices/shizoaffective disorder. Source of Information: patient, old records Exam Limitations: clinical condition, POOR HISTORIAN History of Present Illness: The patient is a 46 yo male with h/o anxiety/depression, schizoaffective disorder, ?bipolar, opioid dependence and abuse/polysubstance abuse, COPD, and DM2 who was admitted to [facility]/Psychiatry after presenting in ED hearing voices. He also expressed suicidal ideation. I am seeing the patient on 06/09 for medical admit physical. At the time of my exam he told me he has continued right lower extremity pain and has had difficulty ambulating. He stated that he was admitted to [facility] in [place] last week and was sent to [facility] for evaluation of the pain, stating they wished to do "surgery". He stated he left [place] AM. Records were obtained from [facility] and he was admitted 06/01 and sent to [place] 06/02. He had rhabdomyolysis and lactic acidosis on admission with CK 19, 000. He had stated that he had slept on his right leg and had injected heroin in his leg. He has a h/o prior fasciotomies in the RUE/RLE in the past. [facility] evaluation included Vascular and Ortho evaluations. He was sent to [place] with concern regarding potential compartment syndrome in the right thigh. The patient denied any chest pain, dyspnea, or other symptoms at the time of my exam. Allergies/Medications Allergies: Coded Allergies: trazodone (Severe, PRIAPISM 12/25/15) hydroxyzine (From Vistaril) (Intermediate, RESTLESSNESS, SHAKINESS 12/25/15) diphenhydramine (From BENADRYL) (Mild, shaky but not as bad as Vistaril 02/02/16 ) ibuprofen (not to take ibuprofen/Motrin while on Fordyce prophylaxis 02/03/16) Home Med list Amlodipine Besylate 5 MG TABLET 1 TAB PO DAILY BP (Reported) Fluoxetine HCl 10 MG CAPSULE 1 CAP PO DAILY MENTAL HEALTH (Reported) Fluticasone/Salmeterol (Advair 250-50 Diskus) 250 MCG-50 MCG/DOSE BLST.W.DEV 1 PUF INH BID RESPIRATORY (Reported) Gabapentin 300 MG CAPSULE 1 CAP PO TID UNKNOWN (Reported) Insulin NPH Human Isophane (Novolin N) 100 UNIT/ML VIAL 10 UNITS SC BID DM ( Reported) Levalbuterol Tartrate (Xopenex Hfa) 45 MCG/ACTUATION HFA.AER.AD 1-2 PUF INH Q4H PRN WHEEZE (Reported) Fordyce Carbonate 300 MG CAPSULE 1 CAP PO QAM MENTAL HEALTH (Reported) Fordyce Carbonate 300 MG TABLET 2 TAB PO QHS MENTAL HEALTH (Reported) Metformin HCl 850 MG TABLET 1 TAB PO BID DM (Reported) Mirtazapine 7.5 MG TABLET 1 TAB PO QHS MENTAL HEALTH (Reported) Prednisone (Unknown Strength) TABLET (Unknown Dose) PO AD STEROID TAPER ( Reported) Risperidone 2 MG TABLET 2 TAB PO QHS UNKNOWN (Reported) Sitagliptin Phosphate (Januvia) 100 MG TABLET 1 TAB PO DAILY DM (Reported) Compliance With Home Meds: UNKNOWN Past History Travel History Traveled to [place] past 21 day No Medical History Any Pertinent Medical History? unobtainable Neurological: NONE EENT: NONE Cardiovascular: NONE Respiratory: asthma Gastrointestinal: NONE Hepatic: hepatitis C Renal: NONE Musculoskeletal: leg and right arm pain due to past surgeries Psychiatric: anxiety, chronic pain disorder, depression, opioid dependence, psychosis (with schizoaffective episodes), schizo affective disorder, substance abuse, Schizoaffective disorder, bipolar type, severe; MRE mixed, with psychotic features. Cocaine use disorder. Cocaine intoxication. Sedative hypnotic use disorder (benzodiazepines). Benzodiazepine intoxication. Opioid use disorder. Opioid intoxication. Cocaine Use Disorder Cocaine Intoxication Benzo.(Xanax)Use Disorder Benzo. 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 . UNCLE (UNCLE WITH PSYCHOSIS). Relation not specified for: *No pertinent family history Psychosocial History Who Do You Live With? self Services at Home: None Primary Language: Estonian Smoking Status: Current Everyday Smoker ETOH Use: denies use Illicit Drug Use: cocaine, heroin, benzodiazepines, MORPHINE Functional Ability ADLs Independent: dressing, eating, toileting, bathing. Ambulation: independent IADLs Unknown: shopping, housework, finances, food prep, telephone, transportation, medication admin. Review of Systems Review of Systems Constitutional: Denies: no symptoms. EENTM: Denies: no symptoms. Cardiovascular: Denies: no symptoms. Respiratory: Denies: no symptoms. GI: Denies: no symptoms. Genitourinary: Denies: no symptoms. Musculoskeletal: Reports: muscle pain (RLE PAIN). Skin: Denies: no symptoms. Neurological/Psychological: Reports: depressed. Hematologic/Endocrine: Denies: no symptoms. Immunologic/Allergic: Denies: no symptoms. Exam & Diagnostic Data Last 24 Hrs of Vital Signs/I&O Vital Signs Date Time Temp Pulse Resp B/P Pulse O2 O2 Flow FiO2 Ox Delivery Rate 06/09 1608 93 128/66 06/09 1312 95.4 88 18 123/62 06/09 1257 95.4 88 18 123/62 06/09 1208 88 123/62 06/09 0801 95.4 63 109/62 06/09 0755 96.8 88 18 112/59 06/09 0752 96.8 88 18 112/59 06/08 2012 96.8 88 112/59 Physical Exam General Appearance Alert, Oriented X3, Cooperative, Mild Distress (RLE PAIN) Skin No Rashes, No Breakdown, SCARS ON RUE/RLE/LUE HEENT Atraumatic, PERRLA, EOMI, Mucous Membr. moist/pink Neck Supple, No JVD, No thryomegaly, +2 Carotid Pulse wo Bruit, No LAD Cardiovascular Regular Rate, Normal S1, Normal S2, No Murmurs Lungs Clear to Auscultation, Normal Air Movement Abdomen Normal Bowel Sounds, Soft, No Tenderness, No Hepatospenomegaly, No Masses Neurological Exam Findings: Normal Speech, Strength at 5/5 X4 Ext, Normal Tone, Sensation Intact, Cranial Nerves 3-12 NL, Reflexes 2+ Cranial Nerves II through XII: INTACT Extremities No Edema (TENDER RT THIGH/CALF), Normal Pulses Vascular Normal Pulses, Pulses Symmetrical Last 24 Hrs of Labs/Shoaib: ADMIT LABS WITH NORMAL BUN/CR Assessment/Plan Assessment: #Schizoaffective Disorder- with hallucinations as above. Plan: Admit to [facility]/Psychiatry Evaluation. #Depression/Suicidal Ideation- as per ED note Plan: As pre psychiatry. #Right Leg Pain- h/o prior fasciotomy and recent [place]'s admission with concern about right thigh compartment syndrome. His pulses are currently good. He was sent to [place], however left [place] without signing out. Had rhabdomyolysis at [facility] with CK 19,000 on 06/01. No follow-up labs obtained, however admission BUN/Cr here normal. Plan: Will obtain CK and labs tomorrow morning. Follow pain in RLE. If worsening may need vascular evaluation here and more assessment. Would not give narcotics for pain. #COPD- has been on tapering course of Prednisone. Lungs clear at present. Plan: Continue course as planned. Will be off Prednisone 06/11. #DM2- patient had BID insulin ordered as per WAY INSPECTOR as his sugars usually increase when on Prednisone. Sugars have been good and he has been refusing insulin. Plan: Will discontinue insulin and continue oral agents. #Opioid Abuse/Polysubstance Abuse- as noted, the patient stated he shot heroin into his right leg prior to [facility] [place]'s admission. Plan: As per psychiatry. As Ranked By This Provider Problem List: 1. Schizophrenia 2. Substance abuse 3. Diabetes 4. Hepatitis C 5. COPD (chronic obstructive pulmonary disease) 6. Right leg pain Miscellaneous Miscellaneous Documentation Attending Case Discussed With: ERWIN COTTER MD Primary Care Physician: MAIRA CASTELLON Patient sees these Specialists NONE Level of Patient Care: JOCELYN Durbin MD Review Statement Attending Statement Attending Statement: examined this patient, reviewed EMR data (avail), discussed with nursing, amended to note Attending Assessment/Plan: The patient was seen this afternoon and [facility]'s records reviewed this evening.
[2016-06-09 19:46] VITALS: BP 131/76
--- NOTE | 2016-06-09 21:25 | NUR ---
Pt is in bed during change of shift isolative most of the shift, no interaction seen or observed duirng the deisy shift. Pt vital signs are stable appetite is good during the day. no behavioral issues noted. Will continue to monitor the pt overnight.
[2016-06-10 07:46] VITALS: BP 122/71
--- NOTE | 2016-06-10 10:01 | NUR ---
Dr. Gonsales made aware of pt's lithium of 1.0 this am and pt received lithium dose, no further orders at this time.
--- NOTE | 2016-06-10 10:08 | NUR ---
Pt does report SI however no plan and will remain safe on the unit, Dr. Gonsales told this as well this morning. Is present in the milieu and interacts with staff at times.
--- NOTE | 2016-06-10 11:14 | CP SOUTH PROGRESS NOTE PSYCH ---
Psych (Inpt) Progress Note Progress Note Include the following elements, when applicable: Involvement in the active treatment of the patient with behavioral observations of the patient and the patient's response to the treatment. Review of the ongoing treatment process in the context of the treatment plan. Indication of how multi-disciplinary staff members are carrying out the treatment plan. Plans for future interventions and recommendations for revision of the treatment plan. Liaison with other physicians/providers. Progress Note: Notes reviewed, d/w nursing staff. Interviewed patient this morning. Patient initially quite tearful and depressed appearing. He described feeling as though he has nothing to live for and that "this is the worst it's ever been." Denies having intent or plan to harm himself on the unit. He reported he has made a good effort to get out of bed and socialize with staff and patients, for which I praised him and described this as an important component of his treatment. He reports ongoing auditory hallucinations. denies opioid wi/drawal sx's. +SI without intent or plan. Denies HI. He continues to have right LE pain. Vitals reviewed, wnl. Labs rev'd, chemistry wnl, CK 66, Li 1.0. MSE: poorly groomed CM sitting in milieu chair, erythematous face. Cooperative with interview, tearful, fair eye contact. Speech halting. Mood "really bad". Affect blunted, mildly labile. TP mildly impoverished. TC focused around depressed mood. +SI without intent or plan. Denies HI. +AH. Cognition grossly intact. I/J limited. A/P: Residual poor mood with SI and AH in context of med noncompliance and severe opiate use. -As denying opiate w/drawal sx's, will change clonidine from scheduled to PRN -Continue remainder of psych medication -Reviewed admitting crop supervisor note. CK wnl. RLE continue to hurt. Consider f/u with crop supervisor in a few days if ongoing pain or sooner if any evidence of infection/compartment syndrome such as vitals or MS change -rest of plan per primary team
[2016-06-10 11:49] VITALS: BP 135/62
[2016-06-10 15:37] VITALS: BP 140/79
--- NOTE | 2016-06-10 16:01 | PN- Att Addend ---
Attending Addendum Attending Brief Note Patient seen and examined. He was comfortably sleeping in the nurse had to wake him up for my encounter .He complains of right thigh pain, which has been going on for more than 2 weeks. The pain is the same it has not worsened. Currently he is on Tylenol and gabapentin. His CK levels from the morning labs are normal. He denies any fever, chest pain, shortness of breath, any recent trauma to the thigh, though he has history of multiple procedures/surgeries. Vitals: Afebrile, pulse 85, blood pressure 140/79. Physical exam: Alert, awake, oriented 3. Heart: S1-S2 heard, normal, no murmur Lungs: Clear to auscultation Extremities: Right thigh soft, no edema or any wound on the overlying skin, tender to palpate. Pulses well felt bilaterally. Plan: 1. The pain seems more like musculoskeletal in nature . Continue gabapentin and Tylenol. Local warm compression. 2. Continue rest of his medication as per psychiatrist. 3. COPD-stable 4 Diabetes- sugar from this morning is 136. Continue current dose of insulin and oral antidiabetic medications. 5. Please recall medical service if his pain worsens.
[2016-06-10 19:26] VITALS: BP 115/73
--- NOTE | 2016-06-10 19:51 | NUR ---
PT APPEARS MORE DEPRESSED/FLAT THAN USUAL. PT IS VISIBLE WITHIN THE MILIEU YET DOES NOT ENGAGE OFTEN WITH PEERS. ENGAGES MORE WITH STAFF AND EVEN THIS IS LIMITED. PT REMAINS ON THE PERIPHERY FOR MOST OF THE EVENING SHIFT. PT APPROACHED NURSES STATION AND REPORTED HEARING VOICES TO RN KRISTEN. APPROPRIATE TO UNIT AND CALM/COOPERATIVE. VS ARE STABLE. PT CONFIRMS SI BUT DENIES ANY PLAN WHILE ON THE UNIT.
--- NOTE | 2016-06-11 06:24 | NUR ---
PT WAS UP AT 0300 SAYING THERE WERE "VOICES SPEAKING FOREIGN LANGUAGES". PT RECEIVED ATIVAN 0.5 PRN FOR ANXIETY. PT SAT IN LOUNGE FOR A BRIEF PERIOD, THEN RETURNED TO BED AND SLEEP.
[2016-06-11 07:33] VITALS: BP 147/79
[2016-06-11 12:07] VITALS: BP 148/84
--- NOTE | 2016-06-11 13:12 | NUR ---
PT IS COMPLIANT AND COOPEATIVE. PT IS OUT IN COMMUNITY INTERACTING WELL WITH STAFF AND PEERS. PT IS MORE SOICAL TODAY. PT IS ACTIVE IN GROUPS. PT MOOD IS STABLE WITH A FLAT AFFECT AT TIMES. PT WILL SOMETIMES JOKE AROUND WITH STAFF. PT STATES HE HAS SI THOUGHTS BUT NOT PLAN. PT STATES HE WILL NOT ACT ON THESE THOUGHTS WHILE IN HERE.
--- NOTE | 2016-06-11 13:13 | CP SOUTH PROGRESS NOTE PSYCH ---
Psych (Inpt) Progress Note Progress Note Include the following elements, when applicable: Involvement in the active treatment of the patient with behavioral observations of the patient and the patient's response to the treatment. Review of the ongoing treatment process in the context of the treatment plan. Indication of how multi-disciplinary staff members are carrying out the treatment plan. Plans for future interventions and recommendations for revision of the treatment plan. Liaison with other physicians/providers. Progress Note: Notes reviewed, d/w nursing staff. Interviewed patient this morning. Describes vivid visual and auditory hallucinations last evening" demons coming for my soul... Actually, it doesn't sound like such a bad thing right about now." He does explain of these were quite distressing for him, and we discussed taking additional risperidone when these hallucinations become disabling. His right lower extremity pain remained stable. He is not benefited tremendously by Tylenol or by heat pack, though Malick has tried both yesterday. I again examined the leg, which is of equal temperature to the left leg, and distal pulses were intact in both legs. I observed no asymmetric swelling throughout the lower extremities. He continues to have vague suicidal ideation without intent or plan. Denies HI. Vitals reviewed, wnl. No new laboratory results MSE: poorly groomed CM sitting in milieu chair, erythematous face. Cooperative with interview, tearful, fair eye contact. Speech halting. Mood "while these hallucinations are making a pretty bad". Affect blunted, mildly labile. TP mildly impoverished. TC focused around depressed mood. +SI without intent or plan. Denies HI. +AVH as described above. Cognition grossly intact. I/J limited. A/P: Ongoing depressed mood with reports of vivid audiovisual hallucinations that are disturbing to him. Will permit additional as needed risperidone in addition to his 4 mg scheduled at bedtime. Regarding the leg pain, this appears stable, there are no acute red flag signs, however the fact remains that the leg remains painful. Would consider hospitalist consult on Sunday if pain does not improve, and as per Dr. Raymond initial H&P note, may require vascular imaging.
[2016-06-11 15:47] VITALS: BP 151/79
[2016-06-11 19:49] VITALS: BP 141/78
--- NOTE | 2016-06-11 20:40 | NUR ---
PT IS FOCUSED ON SEEING THE PSYCHIATRIST THIS EVENING SHIFT AND REPORTS THAT HE WAS UNABLE TO SEE THE TAB BUILDER DR TODAY. PT SITS IN THE LOUNGE QUIETLY AND DOES NOT ENGAGE MUCH WITH PEERS/STAFF. PT IS MORE WITHDRAWN THAN USUAL AND REPORTED THAT HE FELT THOUGH "PEOPLE ARE NOT UNDERSTANDING ME" BECAUSE "THEY KEEP SAYING 'WHAT' WHEN I TALK". VS ARE STABLE. +SI BUT PT DENIES ANY PLAN WHILE ON THE UNIT.
--- NOTE | 2016-06-12 05:50 | NUR ---
PATIENT AWAKE SEVERAL TIMES DURING NIGHT; GIVEN PRN TYLENOL AT 0400, AND PRN RISPERDAL 1MG AND ATIVAN 0.5MG AT 0459; SLEPT 1/2 NIGHT OR LESS.
[2016-06-12 07:59] VITALS: BP 154/86
[2016-06-12 12:28] VITALS: BP 136/90
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
--- NOTE | 2016-06-12 14:24 | NUR ---
PT IS COMPLIANT AND COOPERATIVE. PT IS OUT IN COMMUNITY INTERACTING WITH STAFF AND PEERS. PT IS ACTIVE IN GROUPS. PT REPORTS HEARING VOICES IN HIS ROOM BUT WOULDN'T STATE WHAT WHAT THEY WERE SAYING. PT MOOD IS STABLE WITH A CONSTRICTED AFFECT. PT REPROTS SI THOUGHTS BUT NO PLAN.
--- NOTE | 2016-06-12 14:49 | CP SOUTH PROGRESS NOTE PSYCH ---
Psych (Inpt) Progress Note Progress Note Progress Note: I discussed this patient's progress to date, current mental status, treatment process in the context of the treatment plan, and discharge planning with staff/ team in the daily morning inpatient team meeting. I also met with the patient myself in individual session. A total of 25 minutes was spent with the patient with more than 50% spent in counseling and/or coordination of care. SUBJECTIVE: "I'm going to be well soon." OBJECTIVE: Current Medications Sig/Hiral Start time Last Medication Dose Route Stop Time Status Admin Acetaminophen 650 MG .STK-MED ONE 06/12 0355 DC PO 06/12 0356 Acetaminophen 650 MG .STK-MED ONE 06/11 1756 DC PO 06/11 1757 Acetaminophen 650 MG Q4P PRN 06/09 1245 AC 06/12 PO 1302 Albuterol Sulfate 2 PUF Q4 PRN 06/06 1245 AC 06/10 INH 1909 Amlodipine Besylate 5 MG DAILY 06/06 1237 AC 06/12 PO 0817 Benztropine Mesylate 1 MG AT BEDTIME 06/07 2200 AC 06/11 PO 211 Benztropine Mesylate 0.5 MG DAILY 06/07 1400 AC 06/12 PO 0816 Budesonide/ 2 PUF BID 06/06 2200 AC 06/10 Formoterol Fumarate INH 1902 Clonidine 0.1 MG BID PRN 06/10 1115 DC PO 06/12 0005 Fluoxetine HCl 10 MG DAILY 06/07 1000 AC 06/12 PO 0817 Gabapentin 300 MG TID 06/06 1240 AC 06/12 PO 0816 Hydrocortisone 1 OBI Q8P PRN 06/12 1445 UNVr 06/12 EXT 1443 [place] Carbonate 300 MG QAM 06/07 1000 AC 06/12 PO 0817 [place] Carbonate 600 MG AT BEDTIME 06/06 2200 AC 06/11 PO 2116 Lorazepam 0.5 MG TID PRN 06/06 1645 AC 06/12 PO 06/13 1644 1200 Melatonin 5 MG QPM 06/06 2200 AC 06/11 PO 2116 Metformin HCl 850 MG 0800 & 1700 06/06 1700 AC 06/12 PO 0816 Mirtazapine 7.5 MG AT BEDTIME 06/06 2200 AC 06/11 PO 2116 Nicotine 4 MG Q2P PRN 06/07 1345 AC 06/12 PO 1303 Risperidone 2 MG 0800 06/13 0800 AC PO Risperidone 25 MG Q 2 WEEKS 06/12 1445 UNVr IM Risperidone 1 MG ONCE ONE 06/12 1045 DC 06/12 PO 06/12 1046 1100 Risperidone 1 MG BID PRN 06/11 1000 DC 06/12 PO 0459 Risperidone 4 MG QPM 06/06 2200 AC 06/11 PO 2116 Sitagliptin Phosphate 100 MG DAILY 06/07 1000 AC 06/12 PO 0817 Vital Signs Date Time Temp Pulse Resp B/P Pulse O2 O2 Flow FiO2 Ox Delivery Rate 06/12 1228 98 136/90 06/12 0817 94 154/86 06/12 0759 97.3 94 154/86 06/11 1949 97.2 99 141/78 06/11 1547 99 151/79 ASSESSMENT: Today the patient presented in a calm and cooperative manner, complaining of having had a difficult weekend. Complains of continuing depression and anxiety. Continually experiencing auditory hallucinations of voices speaking in a language he does not understand, and having visual hallucinations of "evil shadows." Reports continuing suicidal ideation, states that the combination of auditory hallucinations, suicidal ideation, depression, anxiety, and difficulty sleeping has been "terrible." Patient contracts for safety at this time while here on the unit. Depression:9/10; Anxiety:10/10 (with 10 the worst.) Denies homicidal ideation. Speech is well articulated, goal-directed, average in rate, volume and tone. Sad affect. Calm and cooperative. Alert and oriented 3. Logical. The patient understands the risks/benefits/side effects of the medication and is agreeable to continue taking them. PLAN: Increase PO risperidone to 2 mg in the morning and 4 mg at night for continuing auditory and visual hallucinations, suicidal ideation. Initiate Risperdal Consta IM injection every 2 weeks. Patient I discussed initiating Risperdal Consta, and the patient eagerly accepted this recommendation. Continue with current management as patient is improving. Continue to provide support and encouragement.
[2016-06-12 15:57] VITALS: BP 143/78
[2016-06-12 19:48] VITALS: BP 151/81
--- NOTE | 2016-06-12 21:56 | NUR ---
PT IS VISIBLE ON UNIT, SOCIAL WITH PEERS AND STAFF. ATTENDED WRAP UP MEETING. PT DID DISCLOSE +SI AT 1600 VITAL SIGNS BUT CONTRACTS FOR SAFETY. NO COMPLAINTS REPORTED. PT HAS A STABLE MOOD AND FULL RANGE AFFECT.
--- NOTE | 2016-06-13 04:29 | NUR ---
AWAKE 0330 R/T PT. ROOMMATE.
[2016-06-13 07:41] VITALS: BP 145/88
--- NOTE | 2016-06-13 11:20 | NUR ---
PT STATED HIS GOAL TODAY WAS "TO FIND SOMETHING TO LIVE FOR" HE REPORTS SUICIDAL THOUGHTS BUT DENIES INTENT OR URGE TO ACT ON THOUGHTS IN THE HOSPITAL. PT IS TAKING HIS MEDS AND REPORTS THAT HE HAD TROUBLE SLEEPING LAST NIGHT DUE TO HIS ROOM MATE TALKING IN HIS SLEEP
[2016-06-13 12:20] VITALS: BP 145/93
--- NOTE | 2016-06-13 12:49 | CP SOUTH PROGRESS NOTE PSYCH ---
Psych (Inpt) Progress Note Progress Note Progress Note: I discussed this patient's progress to date, current mental status, treatment process in the context of the treatment plan, and discharge planning with staff/ team in the daily morning inpatient team meeting. I also met with the patient myself in individual session. A total of 25 minutes was spent with the patient with more than 50% spent in counseling and/or coordination of care. SUBJECTIVE: "Last night I slept, no visions, only some voices, but not the foreign language voice. I'm still hearing the other voices that say bad things. " OBJECTIVE: Current Medications Sig/Hiral Start time Last Medication Dose Route Stop Time Status Admin Acetaminophen 650 MG .STK-MED ONE 06/12 1841 DC PO 06/12 1842 Acetaminophen 650 MG .STK-MED ONE 06/12 1256 DC PO 06/12 1257 Acetaminophen 650 MG Q4P PRN 06/09 1245 AC 06/13 PO 1035 Albuterol Sulfate 2 PUF Q4 PRN 06/06 1245 AC 06/10 INH 1909 Amlodipine Besylate 5 MG DAILY 06/06 1237 AC 06/13 PO 0853 Benztropine Mesylate 1 MG AT BEDTIME 06/07 2200 AC 06/12 PO 2122 Benztropine Mesylate 0.5 MG DAILY 06/07 1400 AC 06/13 PO 0854 Budesonide/ 2 PUF BID 06/06 2200 AC 06/10 Formoterol Fumarate INH 1902 Fluoxetine HCl 10 MG DAILY 06/07 1000 AC 06/13 PO 0853 Gabapentin 300 MG TID 06/06 1240 AC 06/13 PO 0853 Hydrocortisone 1 OBI Q8P PRN 06/12 1445 AC 06/12 EXT 1443 [place] Carbonate 300 MG QAM 06/07 1000 AC 06/13 PO 0853 [place] Carbonate 600 MG AT BEDTIME 06/06 2200 AC 06/12 PO 2121 Lorazepam 0.5 MG TID PRN 06/06 1645 AC 06/13 PO 06/20 1643 0658 Melatonin 5 MG AT BEDTIME 06/12 2200 CAN PO Melatonin 5 MG QPM 06/06 2200 AC 06/12 PO 2121 Metformin HCl 850 MG 0800 & 1700 06/06 1700 AC 06/13 PO 0852 Mirtazapine 7.5 MG AT BEDTIME 06/06 2200 AC 06/12 PO 2122 Nicotine 4 MG Q2P PRN 06/07 1345 AC 06/13 PO 1239 Risperidone 2 MG 0800 06/13 0800 AC 06/13 PO 0852 Risperidone 25 MG Q 2 WEEKS 06/12 1445 AC 06/12 IM 1506 Risperidone 4 MG QPM 06/06 2200 AC 06/12 PO 2122 Sitagliptin Phosphate 100 MG DAILY 06/07 1000 AC 06/13 PO 0853 Vital Signs Date Time Temp Pulse Resp B/P Pulse O2 O2 Flow FiO2 Ox Delivery Rate 06/13 1220 100 145/93 06/13 0853 96.4 98 16 145/88 06/13 0741 96.4 98 145/88 06/12 1948 96.7 104 151/81 06/12 1847 97.3 06/12 1557 96 143/78 ASSESSMENT: Reports significant improvement this morning, stating that he slept well at night for the first time in a long time. States he did not have visual hallucinations last night which was a relief. Reports that the worst of his voices, which is the voice in an angry foreign language, was not experienced last night. During today's visit, we discussed patient attending IOP and Alcoholics Anonymous. Patient states that he is starting to feel somewhat hopeful. Denies homicidal ideation, visual hallucinations, paranoid ideation. Patient reports improving but continued suicidal thoughts, "I can't think of a reason not to do it, but I'm thinking there is a reason, maybe I am supposed to suffer and something good is going to break for me." He is able to contract for safety while here on the unit. Speech is well articulated, goal-directed, average in rate, volume and tone. Calm and cooperative. Alert and oriented 3. The patient understands the risks/benefits/side effects of the medication and is agreeable to continue taking them. PLAN: Tolerated Risperdal Consta IM [id number] injection well. Continue with current management as patient is improving. Continue to provide support and encouragement.
[2016-06-13 15:45] VITALS: BP 138/92
[2016-06-13 19:55] VITALS: BP 141/92
--- NOTE | 2016-06-13 21:42 | NUR ---
Pt is out in the community mood is stable affect is in full range. Vital signs are stable. appetite is good. Will continue to monitor the pt overnight.
--- NOTE | 2016-06-14 04:24 | NUR ---
DIFFICULTY FALLING ASLEEP MEDICATED WITH ATIVAN X2.
[2016-06-14 08:00] VITALS: BP 133/84
--- NOTE | 2016-06-14 11:52 | NUR ---
PT IS STABLE WITH FULL RANGE OF AFFECT. PT IS VISIBLE WITHIN THE LOUNGE AND INTERACTING MORE WITH PEERS/STAFF THIS MORNING. PT WAS MAKING JOKES WITH STAFF EARLY THIS MORNING. ATTENDING GROUPS. VS ARE STABLE AND PT CONFIRMS POSITIVE SI BUT DENIES ANY PLAN WHILE ON THE UNIT.
[2016-06-14 12:12] VITALS: BP 142/77
--- NOTE | 2016-06-14 13:33 | CP SOUTH PROGRESS NOTE PSYCH ---
Psych (Inpt) Progress Note Progress Note Progress Note: I discussed this patient's progress to date, current mental status, treatment process in the context of the treatment plan, and discharge planning with staff/ team in the daily morning inpatient team meeting. I also met with the patient myself in individual session. A total of 25 minutes was spent with the patient with more than 50% spent in counseling and/or coordination of care. SUBJECTIVE: "I feel improved." OBJECTIVE: Current Medications Sig/Hiral Start time Last Medication Dose Route Stop Time Status Admin Acetaminophen 650 MG .STK-MED ONE 06/13 1821 DC PO 06/13 182 Acetaminophen 650 MG Q4P PRN 06/09 1245 AC 06/14 PO 1255 Albuterol Sulfate 2 PUF Q4 PRN 06/06 1245 AC 06/10 INH 1909 Amlodipine Besylate 5 MG DAILY 06/06 1237 AC 06/14 PO 0855 Benztropine Mesylate 1 MG AT BEDTIME 06/07 2200 AC 06/13 PO 2118 Benztropine Mesylate 0.5 MG DAILY 06/07 1400 AC 06/14 PO 0854 Budesonide/ 2 PUF BID 06/06 2200 AC 06/10 Formoterol Fumarate INH 1902 Fluoxetine HCl 10 MG DAILY 06/07 1000 AC 06/14 PO 0855 Gabapentin 300 MG TID 06/06 1240 AC 06/14 PO 0855 Hydrocortisone 1 OBI Q8P PRN 06/12 1445 AC 06/12 EXT 1443 [place] Carbonate 300 MG QAM 06/07 1000 AC 06/14 PO 0855 [place] Carbonate 600 MG AT BEDTIME 06/06 2200 AC 06/13 PO 211 Lorazepam 0.5 MG 0800,0 06/14 2200 AC PO 06/21 215 Lorazepam 0.5 MG .STK-MED ONE 06/14 0120 DC PO 06/14 0121 Lorazepam 0.5 MG .STK-MED ONE 06/14 0022 DC PO 06/14 0023 Lorazepam 0.5 MG TID PRN 06/06 1645 DC 06/14 PO 06/20 1643 1107 Melatonin 10 MG AT BEDTIME 06/140 AC PO Melatonin 5 MG QPM 06/06 2200 DC 06/13 PO 2118 Metformin HCl 850 MG 0800 & 1700 06/06 1700 AC 06/14 PO 0854 Mirtazapine 7.5 MG AT BEDTIME 06/06 2200 AC 06/13 PO 2118 Nicotine 4 MG Q2P PRN 06/07 1345 AC 06/14 PO 0527 Risperidone 2 MG 0800 06/13 0800 AC 06/14 PO 0854 Risperidone 25 MG Q 2 WEEKS 06/12 1445 AC 06/12 IM 1506 Risperidone 4 MG QPM 06/06 2200 AC 06/13 PO 2118 Sitagliptin Phosphate 100 MG DAILY 06/07 1000 AC 06/14 PO 0854 Vital Signs Date Time Temp Pulse Resp B/P Pulse O2 O2 Flow FiO2 Ox Delivery Rate 06/14 1212 108 142/77 06/14 0855 96 16 133/84 06/14 0800 97.1 96 133/84 06/13 1955 96.2 112 141/92 06/13 1545 108 138/92 ASSESSMENT: Reports that the severity of his auditory hallucinations have decreased, and he denies seeing visual hallucinations for the past 2 days. He reports continuing anxiety and racing thoughts, but states these have been improving. Patient agrees to taper down Ativan to discontinuation. Depression:5/10; Anxiety:10/10 (with 10 the worst.) Denies homicidal ideation, auditory hallucinations. Patient states that he still has suicidal thoughts, however it's been getting better. Patient is able to contract for safety at this time. Some difficulty sleeping at night. Appetite is okay, states he ate breakfast this morning, but did not eat dinner last night. Speech is well articulated, goal-directed, average in rate, volume and tone. Cooperative, anxious. Alert and oriented 3. The patient understands the risks/benefits/side effects of the medication and is agreeable to continue taking them. PLAN: Patient agrees to taper off of Ativan. Today Ativan twice daily, and continue to taper to discontinuation. Melatonin 10 mg at bedtime. Continue with other current management as patient is improving. Continue to provide support and encouragement.
--- NOTE | 2016-06-14 14:45 | SOCIAL WORKER PROG NOTE PSYCH ---
Social Work Progress Note Progress Note Pt was expressive and goal oriented. He wants to work with a visiting nursing program, he would like to discharge on Sunday, he can attend an intake [facility] weekly walk in hours are available. He agrees with this plan. He was smiling and making jokes and oriented.
[2016-06-14 15:51] VITALS: BP 147/95
[2016-06-14 19:33] VITALS: BP 155/92
--- NOTE | 2016-06-14 21:07 | NUR ---
PT IS CALM, COOPERATIVE WITH STAFF AND PEERS, AND COMPLIANT WITH UNIT RULES. PT IS IN [place] OFTEN, INTERACTING WELL WITH OTHERS. AT TIMES PT SHOWS SIGNS OF LETHARGY, SLEEPING IN PT ROOM FOR SHORT PERIODS OF TIME. OVERALL PT DEMEAMOR IS FRIENDLY AND KIND. MOOD IS STABLE, AFFECT IS EUTHYMIC TO FULL RANGE, COMMUNICATION IS NORMAL, AND APPETITE IS NORMAL. PT DENIES SI AT THIS TIME. BLOOD GLUCOSE AT 1630 WAS RECORDED AT 216.
[2016-06-15 07:49] VITALS: BP 138/85
--- NOTE | 2016-06-15 10:17 | SOCIAL WORKER PROG NOTE PSYCH ---
Social Work Progress Note Progress Note Pt has an intake appointment with [facility] on Sunday06/19/16 at 12:45p.
[2016-06-15 12:27] VITALS: BP 143/84
--- NOTE | 2016-06-15 13:06 | CP SOUTH PROGRESS NOTE PSYCH ---
Psych (Inpt) Progress Note Progress Note Progress Note: I discussed this patient's progress to date, current mental status, treatment process in the context of the treatment plan, and discharge planning with staff/ team in the daily morning inpatient team meeting. I also met with the patient myself in individual session. A total of 15 minutes was spent with the patient with more than 50% spent in counseling and/or coordination of care. SUBJECTIVE: "I'm pulling my good thoughts together." OBJECTIVE: Current Medications Sig/Hiral Start time Last Medication Dose Route Stop Time Status Admin Acetaminophen 650 MG .STK-MED ONE 06/14 1730 DC PO 06/14 1731 Acetaminophen 650 MG .STK-MED ONE 06/14 1249 DC PO 06/14 1250 Acetaminophen 650 MG Q4P PRN 06/09 1245 AC 06/15 PO 0538 Albuterol Sulfate 2 PUF Q4 PRN 06/06 1245 AC 06/10 INH 1909 Amlodipine Besylate 5 MG DAILY 06/06 1237 AC 06/15 PO 0754 Benztropine Mesylate 1 MG AT BEDTIME 06/07 2200 AC 06/14 PO 2123 Benztropine Mesylate 0.5 MG DAILY 06/07 1400 AC 06/15 PO 0755 Budesonide/ 2 PUF BID 06/06 2200 AC 06/15 Formoterol Fumarate INH 0758 Fluoxetine HCl 10 MG DAILY 06/07 1000 AC 06/15 PO 0754 Gabapentin 300 MG TID 06/06 1240 AC 06/15 PO 0754 Hydrocortisone 1 OBI Q8P PRN 06/12 1445 AC 06/12 EXT 1443 [place] Carbonate 300 MG QAM 06/07 1000 AC 06/15 PO 0755 [place] Carbonate 600 MG AT BEDTIME 06/06 2200 AC 06/14 PO 2123 Lorazepam 0.5 MG 0800,0 06/14 2200 AC 06/15 PO 06/21 2159 0756 Melatonin 10 MG AT BEDTIME 06/14 2200 AC 06/14 PO 2123 Metformin HCl 850 MG 0800 & 1700 06/06 1700 AC 06/15 PO 0755 Mirtazapine 7.5 MG AT BEDTIME 06/06 2200 AC 06/14 PO 2123 Nicotine 4 MG Q2P PRN 06/07 1345 AC 06/15 PO 0907 Risperidone 2 MG 0800 06/13 0800 AC 06/15 PO 0755 Risperidone 25 MG Q 2 WEEKS 06/12 1445 AC 06/12 IM 1506 Risperidone 4 MG QPM 06/06 2200 AC 06/14 PO 2124 Sitagliptin Phosphate 100 MG DAILY 06/07 1000 AC 06/15 PO 0754 Vital Signs Date Time Temp Pulse Resp B/P Pulse O2 O2 Flow FiO2 Ox Delivery Rate 06/15 1227 100 143/84 06/15 0754 104 138/85 06/15 0749 96.1 104 138/85 06/14 1933 97.4 104 155/92 06/14 1551 100 147/95 ASSESSMENT: Patient reports he is improving, reports motivation for sobriety, and feels upbeat about the future. Reports improvement to his symptoms of suicidality and auditory hallucinations. States he has not seen visual hallucinations in the past 2 days. He sleeping well at night, melatonin is helpful, his appetite is improving. Depression:3/10; Anxiety:8/10 (with 10 the worst.) Denies homicidal ideation, visual hallucinations. He states that although he continues to have intermittent suicidal thoughts, "I' m not do anything." States he feels safe, he states and also believes that he will not kill himself. He would also like for his brother, or another family member to come to his apartment after discharge to remove and discard the Ambien which he had intended to overdose on. States that the auditory hallucinations are better, he is not hearing the voice with a foreign language, "I'm not hearing the music or the humming anymore." Speech is well articulated, goal-directed, average in rate, volume and tone. Cooperative. Alert and oriented 3. The patient understands the risks/benefits/side effects of the medication and is agreeable to continue taking them. PLAN: Continue with current management as patient is improving. Continue to provide support and encouragement.
--- NOTE | 2016-06-15 13:28 | SOCIAL WORKER PROG NOTE PSYCH ---
Social Work Progress Note Progress Note Pt connected with in home visiting nurse program, and they will reconvene services upon discharge. Kvng at home, we spoke with Jayesh. He states there are previous orders in place from [facility] good thru end of June, we informed Mr. Olvera that he needs to be connected to an outpatient provider that will continue to write the orders afte rthis expires. Pt has an intake appointment at [facility] and agrees to attend on 06/19/16 at 12:45p. Pt feels "good", is oriented, and wants to learn to be less impulsive, or to utilize coping skills to manage his symptoms. Encouraged pt to stay sober and use sober supports.
--- NOTE | 2016-06-15 14:25 | NUR ---
PT IS OUT IN COMMUNITY INTERACTING WELL [facility] STAFF AND PEERS. PT HAS BEEN COMPLIANT AND COOPERATIVE. PT IS ATTENDING GROUPS. PT REPORTED A HEADACHE THIS MORNING BUT HAS GONE SINCE THEN. PT DENIES SI THOUGHTS. PT IS LOOKING FORWARD TO DISCHARGE TOMORROW.
[2016-06-15 15:49] VITALS: BP 149/79
--- NOTE | 2016-06-15 19:34 | NUR ---
PT C/O ANXIETY WITH RACING THOUGHTS THIS PM. T/C TO DR COTTER. ORDER RECEIVED FOR NEURONTIM 300 MG PO Q 6 HRS PRN FOR ANXIETY. 300 MG ADMINISTERED ADMINISTERED AT ABOUT 1730. UPON REASSESSMENT, PT REPORTED POSITIVE EFFECT WITH DECREASED ANXIETY AND DECREASE IN RACING THOUGHTS.
[2016-06-15 20:05] VITALS: BP 153/85
--- NOTE | 2016-06-15 23:01 | NUR ---
PT IS VISIBLE ON UNIT, SOCIAL WITH PEERS AND STAFF. REFUSED AA BUT DID ATTEND WRAP UP MEETING. COOPERATIVE AND COMPLIANT WITH STAFF. NO COMPLAINTS OR SI REPORTED. PT HAS A STABLE MOOD AND FULL RANGE AFFECT.
--- NOTE | 2016-06-16 06:01 | NUR ---
PT SLEPT UNTIL 0400, THEN WAS AWAKE. PT RECEIVED TYLENOL PRN, SOAKED FEET.
[2016-06-16 07:19] VITALS: BP 143/96
[2016-06-16] MEDS ORDERED: NICORELIEF4 MG PO (07:35)
[2016-06-16] MEDS ORDERED: AMLODIPINE BESYL5 M1 PO (07:38)
[2016-06-16] MEDS ORDERED: GABAPENTIN300 M2 PO (07:38)
[2016-06-16] MEDS ORDERED: FLUOXETINE HCL10 M2 PO (07:39)
[2016-06-16] MEDS ORDERED: MIRTAZAPINE7.5 M1 PO (07:39)
[2016-06-16] MEDS ORDERED: VENTOLIN HFA18 GM INH (07:46)
[2016-06-16] MEDS ORDERED: METFORMIN HCL850 M1 PO (07:50)
[2016-06-16] MEDS ORDERED: JANUVIA100 M1 PO (07:51)
[2016-06-16 08:08] VITALS: BP 143/96
--- NOTE | 2016-06-16 08:42 | CP SOUTH PROGRESS NOTE PSYCH ---
Psych (Inpt) Progress Note Progress Note Progress Note: I discussed this patient's progress to date, current mental status, treatment process in the context of the treatment plan, and discharge planning with staff/ team in the daily morning inpatient team meeting. I also met with the patient myself in individual session. A total of 30 minutes was spent with the patient with more than 50% spent in counseling and/or coordination of care. SUBJECTIVE: "I feel solid." OBJECTIVE: Current Medications Sig/Hiral Start time Last Medication Dose Route Stop Time Status Admin Acetaminophen 650 MG .STK-MED ONE 06/15 2018 DC PO 06/15 2019 Acetaminophen 650 MG .STK-MED ONE 06/15 1318 DC PO 06/15 1319 Acetaminophen 650 MG .STK-MED ONE 06/15 0903 DC PO 06/15 0904 Acetaminophen 650 MG Q4P PRN 06/09 1245 AC 06/16 PO 0428 Albuterol Sulfate 2 PUF Q4 PRN 06/06 1245 AC 06/10 INH 1909 Amlodipine Besylate 5 MG DAILY 06/06 1237 AC 06/16 PO 0808 Benztropine Mesylate 1 MG AT BEDTIME 06/07 2200 AC 06/15 PO 2215 Benztropine Mesylate 0.5 MG DAILY 06/07 1400 AC 06/16 PO 0807 Budesonide/ 2 PUF BID 06/06 2200 AC 06/15 Formoterol Fumarate INH 0758 Fluoxetine HCl 10 MG DAILY 06/07 1000 AC 06/16 PO 0808 Gabapentin 300 MG Q6P PRN 06/15 1830 AC 06/15 PO 1730 Gabapentin 300 MG TID 06/06 1240 AC 06/16 PO 0808 Hydrocortisone 1 OBI Q8P PRN 06/12 1445 AC 06/12 EXT 1443 [place] Carbonate 300 MG QAM 06/07 1000 AC 06/16 PO 0808 [place] Carbonate 600 MG AT BEDTIME 06/06 2200 AC 06/15 PO 2215 Lorazepam 0.5 MG 0800,0 06/14 2200 AC 06/16 PO 06/21 215 0807 Melatonin 10 MG AT BEDTIME 06/14 2200 AC 06/15 PO 2215 Metformin HCl 850 MG 0800 & 1700 06/06 1700 AC 06/16 PO 0807 Mirtazapine 7.5 MG AT BEDTIME 06/06 2200 AC 06/15 PO 2217 Nicotine 4 MG Q2P PRN 06/07 1345 AC 06/16 PO 0527 Risperidone 2 MG 0800 06/13 0800 AC 06/16 PO 0807 Risperidone 25 MG Q 2 WEEKS 06/12 1445 AC 06/12 IM 1506 Risperidone 4 MG QPM 06/06 2200 AC 06/15 PO 2217 Sitagliptin Phosphate 100 MG DAILY 06/07 1000 AC 06/16 PO 0808 Vital Signs Date Time Temp Pulse Resp B/P Pulse O2 O2 Flow FiO2 Ox Delivery Rate 06/16 08 96.5 95 16 143/96 06/16 0719 96.5 95 143/96 06/15 2004 97.6 88 153/85 06/15 1549 110 149/79 06/15 1227 100 143/84 ASSESSMENT: Patient reports he is feeling well, states he feels safe and ready for discharge. States he is motivated for sobriety, is eager to attend IOP. Tolerating his medications well, without complaint. He states he is ready to discontinue benzodiazepines, and will continue Ativan taper which will discontinue on Sunday, when he starts IOP. He reports continuing auditory hallucinations, but the voices, music and humming which he is used to is much diminished, and he states "it's nothing I can't handle." Depression:2/10; Anxiety:7/10 (with 10 the worst.) Denies suicidal ideation, homicidal ideation, auditory hallucinations, visual hallucinations, paranoid ideation. Patient states and also believes that he will not kill himself. States that when he gets home this afternoon, he is going to flush/discard the Ambien which he had purchased on the street prior to coming to the hospital. Speech is well articulated, goal-directed, average in rate, volume and tone. Calm, cooperative and pleasant. And oriented 3. The patient understands the risks/benefits/side effects of the medication and is agreeable to continue taking them. PLAN: Patient reports motivation for sobriety, eagerness to attend IOP and Alcoholics Anonymous. Visiting nurse will see him this afternoon at his home. Discharge today. Continue with current management as patient is improving. Continue to provide support and encouragement.
--- NOTE | 2016-06-16 08:45 | DISCHARGE SUMMARY REPORT-PSYCH ---
Visit Information Visit Dates/Diagnosis' Admission Date: 06/06/16 Discharge Date: 06/16/16 Reason for Admission: Patient states that he drove himself to the hospital after buying his "suicide kit," which included 60 tablets of Ambien and a pint of vodka. He reported polysubstance abuse and auditory hallucination. "I came in to see if I could find a reason to not kill myself." Patient states that he did not have a prescriber and ran out of his psychiatric medications. Psy Discharge Primary Diag: Schizoaffective d/o. Psy Discharge Secondary Diag: Opioid use d/o; Cocaine use d/o; Benzodiazepine use d/o; asthma; Hep C. Hospital Course Significant Lab Findings: Lab ALT 107 U/L H 06/05/16 1324 AST 106 U/L H 06/05/16 1324 TSH &T3 &Free T4 Intrp 0.565 uIU/mL 06/05/16 1324 Hct 36.2 % L 06/05/16 1324 Hgb 12.1 G/DL L 06/05/16 1324 RBC 4.20 /CUMM L 06/05/16 1324 WBC 7.9 /CUMM 06/05/16 1324 [place] 1.0 mmol/L 06/10/16 0426 Serum Alcohol < 10.0 MG/DL 06/05/16 1324 Urine Cocaine Screen > 1000 NG/ML H 06/05/16 1325 Urine Opiates Screen > 4000.00 NG/ML H 06/05/16 1325 Course Complications: Patient was seen for right thigh pain by Dr. Ohara. Please refer to her note for additional information. Consultations: Patient was seen for admission history and physical by Dr. Raymond. Please refer to his note for additonal information. Allergies: Coded Allergies: trazodone (Severe, PRIAPISM 12/25/15) hydroxyzine (From Vistaril) (Intermediate, RESTLESSNESS, SHAKINESS 12/25/15) diphenhydramine (From BENADRYL) (Mild, shaky but not as bad as Vistaril 02/02/16 ) ibuprofen (not to take ibuprofen/Motrin while on [place] prophylaxis 02/03/16) Hospital Course/TX Response: Patient was monitored on the unit for safety, suicidal ideation, depression, auditory and visual hallucinations, and delusional thoughts of having "chips" placed in his arms in order to control him. He participated in multimodal treatment on the unit. He was medicated with risperdal PO, and was started on Risperdal Consta IM, Q2 weeks for symptoms of auditory and visual hallucinations and delusional thoughts. He was medicated with lithium for mood stability. Fluoxetine for depression. Gabapentin for anxiety. Ativan was tapered down, to discontinuation. Mirtazapine for depression and sleep. He was also continued on his medications for diabetes mellitus, and hypertension. Today, the day of discharge, he reports he is feeling well, states he feels safe and ready for discharge. States he is motivated for sobriety, is eager to attend IOP. Tolerating his medications well, without complaint. He states he is ready to discontinue benzodiazepines, and will continue Ativan taper which will discontinue on Sunday, when he starts IOP. He reports continuing auditory hallucinations, but the voices, music and humming which he is used to is much diminished, and he states "it's nothing I can't handle." Depression:2/10; Anxiety:7/10 (with 10 the worst.) Denies suicidal ideation, homicidal ideation, auditory hallucinations, visual hallucinations, paranoid ideation. Patient states and also believes that he will not kill himself. States that when he gets home this afternoon, he is going to flush/discard the Ambien which he had purchased on the street prior to coming to the hospital. Speech is well articulated, goal-directed, average in rate, volume and tone. Calm, cooperative and pleasant. And oriented 3. The patient understands the risks/benefits/side effects of the medication and is agreeable to continue taking them. Patient reports tolerating his medication well, without complaint. States he feels safe and ready for discharge. Discharge HBIPS - Tobacco Use Treatment Offered Post DC Medications Offered: Script Given-See Med List Post DC Tobacco Treatment Plan: [facility] Tobacco Tx Pgm Program Appt Date: 05/31/16 Program Appt Time: 1600 - EtOH/Drug Use D/O Treatment Offered Post DC Medications Offered: Ref Med EtOH/Drug Use D/O Post DC EtOH/SubAbuse TX Plan: [facility] SubAbuse/Dual IOP Program Appt Date: 06/19/16 Program Appt Time: 1245 Metabolic Screening - Screen if on a Neuroleptic Medication - Metabolic screening should include: - Blood Pressure, BMI, Glucose or Hgb A1c, & a - Lipid profile from within the past 365 days. Metabolic Screening (x) Not Applicable, patient not on a neuroleptic. OR () Patient on a neuroleptic(s) . Enter below results for Glucose or Hemoglobin A1C, and lipid panel if obtained during the last 365 days. BMI: 32.600 Blood Pressure: 143/96 Laboratory Results (If applicable): Lab Cholesterol 181 MG/DL 09/06/15 0822 Cholesterol/HDL Ratio 6 % H 09/06/15 0822 Glucose 159 mg/dL H 06/05/16 1324 HDL Cholesterol 29 mg/dL L 09/06/15 0822 Hemoglobin A1c 7.1 % H 11/08/15 2250 LDL Cholesterol, Calc 120 mg/dL 09/06/15 0822 Triglycerides 164 mg/dL H 09/06/15 0822 Discharge Instructions General Discharge Information Discharge Medications: Discharge Medications- (Dose, route, freq, indication): HOME MEDICATION LIST START taking these NEW Home Medications: Albuterol Sulfate Dose: Inhale through mouth, Qty: 1 Call-In to (Ventolin Hfa) 90 2 Puff EVERY 4 HOURS NEEDED Refills: 0 Pharm 1 MCG HFA.AER.AD as needed for WHEEZING NEEDED Nicotine Polacrilex Dose: ORAL, EVERY 2 HOURS Qty: 30 Call-In to (Nicorelief) 4 MG 4 Milligram NEEDED as needed for Refills: 0 Pharm 1 GUM nicotine craving Risperidone Dose: ORAL, TWICE DAILY for Qty: 42 Call-In to (Risperdal) 2 MG 2 Milligram CLEAR THOUGHTS Refills: 0 Pharm 1 TABLET TAKE ONE TABLET IN THE MORNING, AND TWO TABLETS AT NIGHT. Last Taken:06/16/16 Time:8am Risperidone Dose: INTRAMUSC, EVERY 2 WEEKS Qty: 1 Call-In to Microspheres 25 Milligram for CLEAR THOUGHTS Refills: 0 Pharm 1 (Risperdal Consta) NEXT DOSE ON 06/26/2016. 25 MG/2 ML SYRINGE Last Taken:06/12/16 Time:3pm [place] Carbonate Dose: ORAL, TWICE DAILY for Qty: 42 Call-In to ([place] Carbonate) 300 Milligram STABLE MOODS Refills: 0 Pharm 1 300 MG CAPSULE TAKE ONE CAPSULE IN THE MORNING, AND TWO AT NIGHT. Last Taken:06/16/16 Time:8am Benztropine Mesylate Dose: ORAL, DAILY for SIDE Qty: 42 Call-In to (Benztropine 0.5 Milligram EFFECTS Refills: 0 Pharm 1 Mesylate) 0.5 MG TAKE ONE IN THE MORNING, TABLET AND TWO AT NIGHT. Last Taken:06/16/16 Time:8am Melatonin Dose: ORAL, AT BEDTIME for Qty: 14 Call-In to (Melatonin) 5 MG 10 Milligram SLEEP Refills: 0 Pharm 1 TABLET Last Taken:06/15/16 Time:10pm Lorazepam (Ativan) Dose: ORAL, DAILY for ANXIETY Qty: 3 Call-In to 0.5 MG TABLET 0.5 Milligram TAKE ONE DAILY FOR THREE Refills: 0 Pharm 1 DAYS, THEN STOP. Last Taken:06/16/16 Time:8am CONTINUE taking these Home Medications: Amlodipine Besylate Dose: ORAL, DAILY for BP Renewed Call (Amlodipine Besylate) 5 1 Tablet Last Taken:06/16/16 -In to Pharm MG TABLET Time:8am 1 Gabapentin (Gabapentin) Dose: ORAL, THREE TIMES DAILY Renewed Call 300 MG CAPSULE 1 Capsule for UNKNOWN -In to Pharm Last Taken:06/16/16 1 Time:8am Fluoxetine HCl Dose: ORAL, DAILY for MENTAL Renewed Call (Fluoxetine HCl) 10 MG 1 Capsule HEALTH -In to Pharm CAPSULE Last Taken:06/16/16 1 Time:8am Mirtazapine Dose: ORAL, TAKE AT BEDTIME Renewed Call (Mirtazapine) 7.5 MG 1 Tablet for MENTAL HEALTH -In to Pharm TABLET Last Taken:06/15/16 1 Time:10pm Metformin HCl (Metformin Dose: ORAL, TWICE DAILY for DM Renewed Call HCl) 850 MG TABLET 1 Tablet Last Taken:06/16/16 -In to Pharm Time:8am 1 Sitagliptin Phosphate Dose: ORAL, DAILY for DM Renewed Call (Januvia) 100 MG TABLET 1 Tablet Last Taken:06/16/16 -In to Pharm Time:8am 1 STOP taking these DISCONTINUED Home Medications: Benztropine Mesylate Dose: ORAL, THREE TIMES DAILY for (Benztropine Mesylate) 0.5 MG 1 Tablet MENTAL HEALTH TABLET Reason Stopped: Pt Decision, not taking Zolpidem Tartrate (Zolpidem Dose: ORAL, Every night for SLEEP Tartrate) 10 MG TABLET 1 Tablet Reason Stopped: Changed to different med Risperidone (Risperidone) 2 MG Dose: ORAL, TAKE AT BEDTIME for UNKNOWN TABLET 2 Tablet Reason Stopped: Changed Dose Prednisone (Prednisone) Dose: ORAL, As Directed for STEROID (Unknown Strength) TABLET Unknown Dose TAPER Reason Stopped: Per Doctor Decision 1: [facility], [address], [place] [id number] Your Preferred Pharmacy [facility] [address] [place], [place] [id number] Multiple Neuroleptics: ([x]) Not Applicable OR Document below three failed attempts at monotherapy, or a plan to taper to monotherapy, or augmentation of Clozapine. () Patient's Diet: Regular Patient's Activity: No restrictions. DC Disposition: None. Recommendations: Follow up at IOP, and visiting nurse. Follow up with primary care at scheduled. Maintain sobriety. Take medications as directed. Referred To: Post Discharge Referrals Provider Referral Service Date: 06/19/16 Referred To: [[facility]] Notes: [address] [place], [place] Intake appointment on Sunday June 19, 2016 at 12:45pm Provider Referral Service Date: 06/16/16 Referred To: [[facility]] Notes: Today at 3pm. Provider Referral Service Date: 06/20/16 Referred To: [[facility]] Notes: [address], [place] Appointment with Jennifer Dove APRN June 20, 2016 at 1:30pm Copies To: Intensive Outpt Psychiatry; [facility]
--- NOTE | 2016-06-16 10:25 | NUR ---
WILL BE DISCHARGED TODAY TO [facility] [place]URN TO PRE-EXISTING TREATORS. MOOD IS STABLE, FULL RANGE OF AFFECT. DENIED THOUGHTS OF SELF HARM WHEN ASKED. GIVEN EDUCATION ON SUICIDE PREVENTION, DEPRESSION, OPIATE AND COCAINE ABUSE.
[2016-06-16] MEDS ORDERED: RISPERDAL2 M1 PO (10:35)
[2016-06-16] MEDS ORDERED: RISPERDAL25 MG/2 ML IM (10:36)
[2016-06-16] MEDS ORDERED: BENZTROPINE ME0.5 M1 PO (10:37)
[2016-06-16] MEDS ORDERED: LITHIUM CARBON300 M4 PO (10:37)
[2016-06-16] MEDS ORDERED: MELATONIN5 M7 PO (10:39)
[2016-06-16] MEDS ORDERED: ATIVAN0.5 M1 PO (11:36)
== END 2016-06-16 12:20 | DRG 885 ==
LOC: ERH 12:57 → CP SOUTH 06-06 10:12 → ERHI 06-06 10:12 → ENPENDDIS 06-06 10:12 → CANBEDREQ 06-07 08:30 → CP SOUTH 06-08 11:56
PROVIDERS: Physician Assistant; ADMIT Psychiatry & Neurology Psychiatry
DX: F25.9 Schizoaffective disorder, unspecified (principal); B18.2 Chronic viral hepatitis C; F11.90 Opioid use, unspecified, uncomplicated; F14.90 Cocaine use, unspecified, uncomplicated; F13.90 Sedative, hypnotic, or anxiolytic use, unspecified, uncomplicated; J45.909 Unspecified asthma, uncomplicated
CPT/HCPCS: 36415; 80307; 82436; 93005; 93010; 96372; G0463; G0480; J1815; J3490; J7512

== ENCOUNTER 2016-08-22 19:00 | Inpatient (IN) | payer OTHER, MEDICARE ==
[~2016-08-22] VITALS: Ht 162.6 cm; Wt 81.6 kg
[~2016-08-22 19:00] MED LIST changes: +ADVAIR 250-501 EACH INH; +AMLODIPINE BESYL5 M1 PO; +ATIVAN0.5 M1 PO; +BENZTROPINE ME0.5 M1 PO; +FLUOXETINE HCL10 M2 PO; +GABAPENTIN300 M2 PO; +JANUVIA100 M1 PO; +LITHIUM CARBON300 M4 PO; +LITHIUM CARBON300 M5 PO; +MELATONIN5 M7 PO; +METFORMIN HCL850 M1 PO; +MIRTAZAPINE7.5 M1 PO; +NICORELIEF4 MG PO; +NOVOLIN N100 UNIT/1 SC; +PREDNISONE5 M1 PO; +RISPERDAL2 M1 PO; +RISPERDAL25 MG/2 ML IM; +RISPERIDONE2 M1 PO; +VENTOLIN HFA18 GM INH; +XOPENEX HFA15 GM INH; +ZOLPIDEM TARTRA10 M1 PO
--- NOTE | 2016-08-22 19:09 | NUR ---
PT TO ED C/O HEARING VOICES "COMING TO GET YOU, COMING TO GET" STATES RELENTLESS AND WON'T STOP "FOR A LONG TIME" DENIES SI/HI. STATAES LAST SNORTED COCAINE AND HEROIN "A COUPLE OF WEEKS AGO" DENIES ETOH. PMH OF SCHIZO AFFECTIVE DO AND BILPOLAR. SPEACH SLOW AND SLURRED
--- NOTE | 2016-08-22 19:22 | ED PSYCHIATRIC COMPLAINT ---
See Addendum History of Present Illness General Chief Complaint: Psychiatric Related Complaint Stated Complaint: PT IS HEARING VOICES Source: patient, old records Exam Limitations: clinical condition Vital Signs & Intake/Output Vital Signs & Intake/Output Vital Signs Date Time Temp Pulse Resp B/P B/P Pulse O2 O2 Flow FiO2 Mean Ox Delivery Rate 08/234 97.4 90 18 111/64 96 Room Air 08/23 1741 97.0 80 20 122/66 100 Room Air 08/23 1505 96.8 88 144/90 08/23 1200 140/70 05 1002 99.0 106 16 152/90 95 Room Air 08/23 0846 98 / 0605 98.0 79 20 148/85 94 Room Air 08/23 0113 98.2 97 16 137/84 96 ED Intake and Output 08/23 0000 08/22 1200 Intake Total Output Total Balance Patient 180 lb Weight Allergies Coded Allergies: trazodone (Severe, PRIAPISM 12/25/15) hydroxyzine (From Vistaril) (Intermediate, RESTLESSNESS, SHAKINESS 12/25/15) diphenhydramine (From BENADRYL) (Mild, shaky but not as bad as Vistaril 02/02/16 ) ibuprofen (not to take ibuprofen/Motrin while on [place] prophylaxis 02/03/16) Reconcile Medications Albuterol Sulfate (Ventolin Hfa) 90 MCG HFA.AER.AD 2 PUF INH Q4P PRN WHEEZING NEEDED Amlodipine Besylate 5 MG TABLET 1 TAB PO DAILY BP (Reported) Amlodipine Besylate 5 MG TABLET 1 TAB PO DAILY BP Benztropine Mesylate 0.5 MG TABLET 0.5 MG PO DAILY SIDE EFFECTS TAKE ONE IN THE MORNING, AND TWO AT NIGHT. Fluoxetine HCl 10 MG CAPSULE 1 CAP PO DAILY MENTAL HEALTH (Reported) Fluoxetine HCl 10 MG CAPSULE 1 CAP PO DAILY MENTAL HEALTH Gabapentin 300 MG CAPSULE 1 CAP PO TID UNKNOWN (Reported) Gabapentin 300 MG CAPSULE 1 CAP PO TID UNKNOWN [place] Carbonate 300 MG CAPSULE 300 MG PO BID STABLE MOODS TAKE ONE CAPSULE IN THE MORNING, AND TWO AT NIGHT. Lorazepam (Ativan) 0.5 MG TABLET 0.5 MG PO DAILY ANXIETY TAKE ONE DAILY FOR THREE DAYS, THEN STOP. Melatonin 5 MG TABLET 10 MG PO AT BEDTIME SLEEP Metformin HCl 850 MG TABLET 1 TAB PO BID DM (Reported) Metformin HCl 850 MG TABLET 1 TAB PO BID DM Mirtazapine 7.5 MG TABLET 1 TAB PO QHS MENTAL HEALTH (Reported) Mirtazapine 7.5 MG TABLET 1 TAB PO QHS MENTAL HEALTH Nicotine Polacrilex (Nicorelief) 4 MG GUM 4 MG PO Q2P PRN nicotine craving Risperidone (Risperdal) 2 MG TABLET 2 MG PO BID CLEAR THOUGHTS TAKE ONE TABLET IN THE MORNING, AND TWO TABLETS AT NIGHT. Risperidone Microspheres (Risperdal Consta) 25 MG/2 ML SYRINGE 25 MG IM Q 2 WEEKS CLEAR THOUGHTS NEXT DOSE ON 06/26/2016. Sitagliptin Phosphate (Januvia) 100 MG TABLET 1 TAB PO DAILY DM (Reported) Sitagliptin Phosphate (Januvia) 100 MG TABLET 1 TAB PO DAILY DM Triage Note: PT TO ED C/O HEARING VOICES "COMING TO GET YOU, COMING TO GET" STATES RELENTLESS AND WON'T STOP "FOR A LONG TIME" DENIES SI/HI. STATAES LAST SNORTED COCAINE AND HEROIN "A COUPLE OF WEEKS AGO" DENIES ETOH. PMH OF SCHIZO AFFECTIVE DO AND BILPOLAR. SPEACH SLOW AND SLURRED Triage Nurses Notes Reviewed? yes HPI: Patient is a 46-year-old male presents complaining of auditory hallucinations. Patient reports that he has been hearing voices since yesterday. Voices are telling him to harm himself and harm others. Symptoms are currently severe. Patient reports that he ran out of his lithium, believes that he ran out yesterday. Patient is unsure if he is run out of any of his other medications, is unable to list his medications for me. Patient reports that he used cocaine 2-3 weeks ago, is otherwise not used any illicit drugs since then. Patient denies suicide attempt, alcohol ingestion, recent trauma. (FROILAN BETANCOURT,GLO) Past History Travel History Traveled to [place] past 21 day No Medical History Any Pertinent Medical History? see below for history Neurological: NONE EENT: NONE Cardiovascular: NONE Respiratory: asthma Gastrointestinal: NONE Hepatic: hepatitis C Renal: NONE Musculoskeletal: leg and right arm pain due to past surgeries Psychiatric: anxiety, chronic pain disorder, depression, opioid dependence, psychosis (with schizoaffective episodes), schizo affective disorder, substance abuse, Schizoaffective disorder, bipolar type, severe; MRE mixed, with psychotic features. Cocaine use disorder. Cocaine intoxication. Sedative hypnotic use disorder (benzodiazepines). Benzodiazepine intoxication. Opioid use disorder. Opioid intoxication. Cocaine Use Disorder Cocaine Intoxication Benzo.(Xanax)Use Disorder Benzo. 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 . UNCLE (UNCLE WITH PSYCHOSIS). Relation not specified for: *No pertinent family history Hx Contributory? No (GLO TURCIOS) Review of Systems Review of Systems Constitutional: Denies: chills, fever. EENTM: Reports: no symptoms. Respiratory: Reports: wheezing (chronic, unchanged). Denies: cough. Cardiovascular: Denies: chest pain. GI: Denies: abdominal pain, nausea, vomiting. Genitourinary: Reports: no symptoms. Musculoskeletal: Denies: back pain, neck pain. Skin: Reports: no symptoms. Neurological/Psychological: Reports: see HPI. Denies: headache, numbness. Hematologic/Endocrine: Denies: bruising, bleeding. Immunologic/Allergic: Denies: splenectomy. (GLO TURCIOS) Physical Exam Physical Exam General Appearance: alert, awake Head: atraumatic, normal appearance, nontender Eyes: Bilateral: normal appearance, PERRL, EOMI. Ears, Nose, Throat: hearing grossly normal Neck: normal inspection, supple, full range of motion, no midline tenderness Respiratory: mild diffuse auditory wheezing. Cardiovascular: tachycardia (regular rhythm) Gastrointestinal: soft, non-tender Extremities: right upper extremity contracted(chronic) No focal signs of trauma Neurological/Psychiatric: awake, alert, flat Behavoir/Eye Contact/Speech: increased rate of speech, tangential speech Thoughts/Hallucinations: auditory hallucinations Skin: warm/dry SAD PERSONS SAD PERSONS Response Value Male Sex? yes 1 Age <19 or >45 years? yes 1 Depression/Hopelessness? yes 2 Excessive Ethanol/Drug Use? yes 1 Rational Thinking Loss? yes 2 Single//? yes 1 Social Support? has no support 1 Total 9 SAD PERSONS Done? yes (GLO TURCIOS) Progress Differential Diagnosis: drug intoxication, drug overdose, drug withdrawal, electrolyte abnormality, encephalitis, IC hem/mass/tumor Plan of Care: Orders Procedure Date/time Status Regular Diet 08/23 B Active Continuous Observation Monitor 08/23 1900 Active Continuous Observation Monitor 08/23 1500 Active Continuous Observation Monitor 08/23 1100 Active Continuous Observation Monitor 08/23 0700 Active Current Medications Sig/Hiral Start time Last Medication Dose Stop Time Status Admin Albuterol Sulfate 2 PUF Q4P PRN 08/23 0800 AC 08/23 (Ventolin) 1700 [place] Carbonate 300 MG BID 08/22 2230 UNVr 08/23 ([place] Carbonate) 1011 Patient evaluated by director of valuation. Patient to remain in the emergency department over night and plan for re-evaluation in the morning. Signed out to Dr. Noel. (GLO TURCIOS) 3:32 PM 08/23/16 Patient signed out to me by Dr. Paniagua. Pending bed search. (ESTEPHANIA DAMON MD) Initial ED EKG: normal axis, normal intervals, normal p-waves, normal QRS complex, normal sinus rhythm, no ST T wave changes Hand-Off Endorsed To: YUDY NOEL MD Endorsed Time: 2333 Pending: consult (GLO TURCIOS) Hand-Off Endorsed To: NIRANJAN PANIAGUA MD Endorsed Time: 0700 Pending: consult (YUDY NOEL MD) Hand-Off Endorsed To: ESTEPHANIA DAMON MD Endorsed Time: 1500 Pending: other (bed search) (NIRANJAN PANIAGUA MD) Hand-Off Endorsed To: YUDY NOEL MD Endorsed Time: 2324 Pending: consult (CRISIS BED PLACEMENT) (ESTEPHANIA DAMON MD) Departure Departure Disposition: STILL A PATIENT Condition: Stable Clinical Impression Primary Impression: Schizoaffective disorder Qualifiers: Schizoaffective disorder type: unspecified Qualified Code: F25.9 - Schizoaffective disorder, unspecified Secondary Impressions: Polysubstance abuse Referrals: PATIENT HAS NO PRIMARY CARE DR (PCP/Family) Departure Forms: Customer Survey General Discharge Information (GLO TURCIOS) (GLO TURCIOS) Hand-Off Endorsed To: NIRANJAN PANIAGUA MD Endorsed Time: 0700 Pending: consult (SADIE LINN,YUDY Pink) Hand-Off Endorsed To: ESTEPHANIA DAMON MD Endorsed Time: 1500 Pending: other (bed search) (NIRANJAN PANIAGUA MD) Departure Departure Disposition: STILL A PATIENT Condition: Stable Clinical Impression Primary Impression: Schizoaffective disorder Qualifiers: Schizoaffective disorder type: unspecified Qualified Code: F25.9 - Schizoaffective disorder, unspecified Secondary Impressions: Polysubstance abuse Referrals: PATIENT HAS NO PRIMARY CARE DR (PCP/Family) Departure Forms: Customer Survey General Discharge Information (GLO TURCIOS)
--- NOTE | 2016-08-22 19:23 | NUR ---
PT TO HALLWAY D VIA WHEELCHAIR. SECURITY AT BEDSIDE FOR WANDING. PT CHANGED INTO BLUE SCRUBS.
--- NOTE | 2016-08-22 19:25 | NUR ---
PT REPORTS CAH TO HARM SELF AND OTHERS. NO PLAN SPECIFIED. PT STATES HE RAN OUT OF HIS LITHIUM YESTERDAY. PT REPORTS POOR SLEEP RECENTLY, DENIES ETOH USE AND STSTES HE USED COCAINE APPROX 3 WEEKS AGO. SITTER AT BEDSIDE.
--- NOTE | 2016-08-22 19:31 | NUR ---
SERAFIN MCGOVERN AT BEDSIDE FOR EVAL
[2016-08-22 20:00] LABS: ABSOLUTE BASOPHIL COUNT 0 /CUMM (0.0-0.2); ABSOLUTE EOSINOPHIL COUNT 0.3 /CUMM (0.0-0.7); ABSOLUTE LYMPH COUNT 3.1 /CUMM (1.2-3.4); ABSOLUTE MONOCYTE COUNT 0.5 /CUMM (0.10-0.60); BASOPHIL % 0.2 % (0.0-2.0); EOSINOPHIL % 2.6 % (0-5); GRANULOCYTE % 64.8 % (42.2-75.2); HEMATOCRIT 44.7 % (42-52); MEAN CORPUSCULAR HGB CONC 33.3 G/DL (33.0-37.0); MEAN CORPUSCULAR VOLUME 84.1 FL (80.0-94.0); MEAN PLATELET VOLUME 8.2 FL (7.4-10.4); PLATELET COUNT 218 /CUMM (130-400); RBC DISTRIBUTION WIDTH 14.6 % (11.5-14.5); RED BLOOD CELL CT 5.31 /CUMM (4.70-6.10); WHITE BLOOD CELL COUNT 10.9 /CUMM (4.8-10.8)
--- NOTE | 2016-08-22 20:06 | NUR ---
BLOOD DRAWN AND SENT TO LAB BY AJ. NILSA/LAV
[2016-08-22 20:32] LABS: LITHIUM < 0.2 mmol/L (0.6-1.2)
--- NOTE | 2016-08-22 21:00 | NUR ---
URINE TRIO SENT TO LAB
--- NOTE | 2016-08-22 21:56 | NUR ---
PT REPORTING DIFFICULTY BREATHING AND INCREASED WHEEZING. PT REQUESTING DUO-NEB TREATMENT. SERAFIN MCGOVERN MADE AWARE AND RESPIRATORY PAGED.
--- NOTE | 2016-08-22 22:25 | NUR ---
RESPIRATORY AT BEDSIDE FOR DUO-NEB TX
--- NOTE | 2016-08-22 22:38 | ED PSYCH CRISIS CONSULTATION ---
Crisis Consult Basic Assessment Date of Consult: 08/22/16 Responsible Person/Accompanied By: Pt. arrived by himself Insurance Authorization: Insurance #1: Insurance name: MEDICARE A Phone number: Policy number: [id number] Group number: Authorization number: ED Provider: Patient's ED Provider: CAMDEN TURCIOS Primary Care Physician: Patient's PCP: PATIENT HAS NO PRIMARY CARE DR PCP's Phone Number: Current Psychiatrist: Patient reports no current psychiatrist. Chief Complaint: Psychiatric Related Complaint Patient's Quote: "Voices telling me to do harm to myself...eating glass...pills. " Present Illness: Patient is a 46 year old male with long standing mental health history and a diagnosis of schizoaffective disorder who presents today to [facility] emergency department with auditory hallucinations w/ commands and suicidal ideation with a plan. In past crisis evaluation on 05/2016, pt. reported a previous suicide attempt ~6 years ago by consuming unspecified prescription pills. Patient was most recently assessed by crisis on 06/05/2016 and admitted to [facility]'s inpatient psychiatry unit. Patient was discharged from [facility] on 06/16/2016 with a plan to follow - up with [facility] program, Jennifer Dove APRN and [facility] Visiting Nurse service. Patient indicates he did not follow through with [facility] or JO and could not specify why he did not. Patient states the visiting nurse service briefly provided medication administration but he was discharged. Patient reports he no longer has any of his Bedford medication. Patient's blood Bedford level today is less than 0.2. Patient is positive in his urine toxicology screen for amphetamines, benzodiazapines ,cocaine, and methadone. Pt. admits to use of these substances (attends methadone program). Pt. states he consumes substances to aid in the voices and also to counter sleep paralysis / night terrors. Pt. reports voices tell him "I dont deserve anything...I live a garbage life." Pt. reported these concerns to his brother Camden [phone] and his brother encouraged him to seek evaluation at a hospital or else he would contact police. Patient presented today with slurred speech, flat affect, and depressed mood. Pt. reports active suicidal ideation and reports he has intent to harm himself if discharged from the hospital. Pt. is seeking an inpatient admission to address his auditory hallucinations and medication management. Pt. was observed to be slumped and has visible scars on his right arm. Patient was discharged from [facility] with Risperidone 25 mg, Bedford, 300 mg, Cogentin 0.5 mg, and Lorazepam 0.5 mg PRN. This was in addition to home medication of Fluoxetine, Mirtazapine, and Gabapentin. Patient is a diabetic and takes medication for glucose control. Patient's Address: [address] [place] [address] Other Phone Number: Who Do You Live With? Patient/Self Family/Informants Interviewed: no family/collateral ID'd (Patient did not provide any) Allergies - Coded Allergies: trazodone (Severe, PRIAPISM 12/25/15) hydroxyzine (From Vistaril) (Intermediate, RESTLESSNESS, SHAKINESS 12/25/15) diphenhydramine (From BENADRYL) (Mild, shaky but not as bad as Vistaril 02/02/16 ) ibuprofen (not to take ibuprofen/Motrin while on Bedford prophylaxis 02/03/16) Current Medications - Scheduled Medications Amlodipine Besylate 5 MG TABLET 1 TAB PO DAILY BP #15 (Reported) Entered as Reported by RAND MARIANO on 06/05/16 1638 Amlodipine Besylate 5 MG TABLET 1 TAB PO DAILY BP #15 TAB Prescribed by DARIA KILGORE APRN on 06/16/16 Benztropine Mesylate 0.5 MG TABLET 0.5 MG PO DAILY SIDE EFFECTS #42 TAB Prescribed by DARIA KILGORE APRN on 06/16/16 Fluoxetine HCl 10 MG CAPSULE 1 CAP PO DAILY MENTAL HEALTH #30 (Reported) Entered as Reported by RAND MARIANO on 06/05/16 1633 Fluoxetine HCl 10 MG CAPSULE 1 CAP PO DAILY MENTAL HEALTH #14 CAP Prescribed by DARIA KILGORE APRN on 06/16/16 Gabapentin 300 MG CAPSULE 1 CAP PO TID UNKNOWN #45 (Reported) Entered as Reported by RAND AMRIANO on 06/05/16 1638 Gabapentin 300 MG CAPSULE 1 CAP PO TID UNKNOWN #45 Prescribed by DARIA KILGORE APRN on 06/16/16 Bedford Carbonate 300 MG CAPSULE 300 MG PO BID STABLE MOODS #42 CAP Prescribed by DARIA KILGORE APRN on 06/16/16 Lorazepam (Ativan) 0.5 MG TABLET 0.5 MG PO DAILY ANXIETY #3 TAB Prescribed by DARIA KILGORE APRN on 06/16/16 Melatonin 5 MG TABLET 10 MG PO AT BEDTIME SLEEP #14 TAB Prescribed by DARIA KILGORE APRN on 06/16/16 Metformin HCl 850 MG TABLET 1 TAB PO BID DM #30 (Reported) Entered as Reported by RAND MARIANO on 06/05/16 1639 Metformin HCl 850 MG TABLET 1 TAB PO BID DM #28 TAB Prescribed by DARIA KILGORE APRN on 06/16/16 Mirtazapine 7.5 MG TABLET 1 TAB PO QHS MENTAL HEALTH #30 (Reported) Entered as Reported by RAND MARIANO on 06/05/16 1634 Mirtazapine 7.5 MG TABLET 1 TAB PO QHS MENTAL HEALTH #14 TAB Prescribed by DARIA KILGORE APRN on 06/16/16 Risperidone (Risperdal) 2 MG TABLET 2 MG PO BID CLEAR THOUGHTS #42 TAB Prescribed by DARIA KILGORE APRN on 06/16/16 Risperidone Microspheres (Risperdal Consta) 25 MG/2 ML SYRINGE 25 MG IM Q 2 WEEKS CLEAR THOUGHTS #1 SYR Prescribed by DARIA KILGORE APRN on 06/16/16 Sitagliptin Phosphate (Januvia) 100 MG TABLET 1 TAB PO DAILY DM #15 (Reported ) Entered as Reported by RAND MARIANO on 06/05/16 1638 Sitagliptin Phosphate (Januvia) 100 MG TABLET 1 TAB PO DAILY DM #14 TAB Prescribed by DARIA KILGORE APRN on 06/16/16 Scheduled PRN Medications Albuterol Sulfate (Ventolin Hfa) 90 MCG HFA.AER.AD 2 PUF INH Q4P PRN WHEEZING #1 INHAL Prescribed by DARIA KILGORE APRN on 06/16/16 Nicotine Polacrilex (Nicorelief) 4 MG GUM 4 MG PO Q2P PRN nicotine craving #30 GUM Prescribed by DARIA KILGORE APRN on 06/16/16 Laboratory Results: Laboratory Tests 08/22/16 2040: Urine Opiates Screen 477.00, Methadone Screen > 735 H, Barbiturate Screen < 60, Ur Phencyclidine Scrn < 6.00, Amphetamines Screen > 1450 H, U Benzodiazepines Scrn > 800 H, Urine Cocaine Screen 679 H, Urine Cannabis Screen < 5.00 08/22/16 1945: Anion Gap 12, Estimated GFR > 60, BUN/Creatinine Ratio 23.0, Glucose 162 H, Calcium 9.6, Total Bilirubin 0.5, AST 25, ALT 51, Alkaline Phosphatase 84, Total Protein 7.3, Albumin 4.4, Globulin 2.9, Albumin/Globulin Ratio 1.5, CBC w Diff NO MAN DIFF REQ, RBC 5.31, MCV 84.1, MCH 28.0, RDW 14.6 H, MPV 8.2, Gran % 64.8 , Lymphocytes % 28.2, Monocytes % 4.2, Eosinophils % 2.6, Basophils % 0.2, Absolute Granulocytes 7.0 H, Absolute Lymphocytes 3.1, Absolute Monocytes 0.5, Absolute Eosinophils 0.3, Absolute Basophils 0, PUBS MCHC 33.3, Bedford < 0.2 L , Serum Alcohol < 10.0 ([facility]) Past History Past Medical History Any Pertinent Medical History? unobtainable Neurological: NONE EENT: NONE Cardiovascular: NONE Respiratory: asthma Gastrointestinal: NONE Hepatic: hepatitis C Renal: NONE Musculoskeletal: leg and right arm pain due to past surgeries Psychiatric: anxiety, chronic pain disorder, depression, opioid dependence, psychosis (with schizoaffective episodes), schizo affective disorder, substance abuse, Schizoaffective disorder, bipolar type, severe; MRE mixed, with psychotic features. Cocaine use disorder. Cocaine intoxication. Sedative hypnotic use disorder (benzodiazepines). Benzodiazepine intoxication. Opioid use disorder. Opioid intoxication. Cocaine Use Disorder Cocaine Intoxication Benzo.(Xanax)Use Disorder Benzo. 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 Physical Limitations (Interventions): Impaired functioning in right arm. Psychiatric Treatment History Psych Treatment Psychiatric Treatment Yes Inpatient Treatment Yes Outpatient Treatment Yes Location of Treatment Treatment dates back to 2001 with most recent discharge 05/2016 Reason for Treatment Psychiatric - schizoaffective disorder Dates of Treatment 2001-present Response to Treatment Last [facility] admission did not resolve auditory hallucinations but did resolve suicidal ideation. 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 Substance Use/Abuse History Drug Use/Abuse 1 Substances Used/Abused Yes Substance Used/Abused Cocaine First Use Unspecified Last Used Past week How much used/taken Unspecified How often Unspecified For how long Unknown Route of use Unknown Drug Use/Abuse 2 Substances Used/Abused Yes Substance Used/Abused Benzodiazepines First Use Unknown Last Used Unknown How much used/taken Unknown How often Unknown For how long Unknown Drug Use/Abuse 3 Substances Used/Abused Yes Substance Used/Abused Methamphetamines First Use Unknown Last Used Unknown How much used/taken Unknown How often Unknown For how long Unknown Route of use Unknown Substance Abuse Treatment Substance Abuse Treatment Past Substance Abuse TX Yes Inpatient Treatment Yes Outpatient Treatment Yes Location of Treatment [facility] [place] Reason for Treatment Methadone maintanence, opioid use Dates of Treatment Unknown Response to Treatment Varied Comments: - (CM SHULTZ LCSW) Current Mental Status Mental Status Orientation: Person, Place, Situation Affect: Depressed, Flat Speech: Slurred, Soft Neuro-vegetative: Anhedonia, Energy Decreased, Loss of Interest, Sleep Disturbance Appearance Appearance- Dress/Hygiene: Pt. dressed in hospital attire. Pt. has a visible scar in his right arm. Behaviors Thought Process: WNL Thought Content: Auditory Hallucinations Memory: WNL Insight: Poor SI/HI Risk Assessment Past Suicidal Ideation/Attempts Yes Current Suicidal Ideation/Att Yes Past Homicidal Ideation/Att: No Current Homicidal Ideation/Attempts No Degree of Intent: Made Preparations, Plan, States Intent Danger To: Self Gravely Disabled: Lack of Insight, Poor Impulse Control, Poor Judgment Risk Factors: access to lethal means, chronic/serious med cond., SA/MH hospitalized, substance abuse, isolate/no social support, poor impulse control, lives alone, male Lethality Ratin PTSD Checklist PTSD Done? patient declined ED Management Sitter: Yes Restraints: No (CM SHULTZ LCSW) DSM5/PS Stressors/Medical Prob Diagnosis' (DSM 5, Stressors, Medical): F25.0 Schizoaffective disorder, Bipolar type F33.2 Major depressive disorder, Recurrent episode, Severe F11.20 Opioid use disorder, Moderate F14.20 Stimulant (cocaine) use disorder, Moderate Current GAF: 22 Comments: Actively suicidal with plan to overdose on prescription sleep medication. History of previous suicide attempts. Not current compliant with prescribed psychotropic medications. (CM SHULTZ LCSW) Departure Disposition Psych Medical Clearance Date: 08/22/16 Medically Cleared at: 0 Time Started: 2199 Time Ended: 2244 Psychiatrist Consulted: Nanda Hernandez MD Date Disposition Established: 08/22/16 Time Disposition Established: 2229 Plan for Disposition - Modality: Hold-over for re-evaluation Rationale for Disposition: Patient clinical information presented to on-call psychiatrist Dr. Hernandez and attending physician Dr. Dickinson. Patient will be held over for further assessment and in consideration of inpatient admission due to high risk factors of active psychosis (auditory hallucinations) and suicidal ideation with a plan to overdose on prescription medication. Patient is not currently compliant on his anti-psychotic medication. Referrals PATIENT HAS NO PRIMARY CARE DR (PCP/Family) (CM SHULTZ LCSW) Disposition Psych Medical Clearance Date: 08/23/16 Medically Cleared at: 0800 Time Started: 0800 Time Ended: 0810 Psychiatrist Consulted: Gene Klein MD Disposition Established: 08/23/16 Time Disposition Established: 809 Plan for Disposition - Modality: Inpatient Psychiatry Facility: [facility] bed search Rationale for Disposition: safety and stabilization Type of IP Admission: Voluntary (JUANCHO LORENZO LCSW) Addendum Addendum Crisis re-evaluated pt this morning. Pt requires admission due to high risk factors of active psychosis (auditory hallucinations) and suicidal ideation with a plan to overdose on prescription medication and hx of attempts. Patient is not currently compliant on his anti-psychotic medication. Pt in agreement for inpt psych tx. There are currently no beds [facility]. Bed search will be done unless a bed becomes available on [facility]. (JUANCHO LORENZO LCSW)
--- NOTE | 2016-08-22 23:01 | NUR ---
Patient's crisis consultation completed. Evaluation reviewed with on-call psychiatrist Dr. Hernandez and attending physician Dr. Dickinson. Patient will be held overnight for further assessment by crisis clinicians in the [facility].
--- NOTE | 2016-08-22 23:03 | NUR ---
PT MEDICATED WITH LITHIUM 300MG PO
--- NOTE | 2016-08-23 01:49 | NUR ---
ASLEEP AT THIS TIME. NO S/S OF V/AH SITTER IN PLACE
--- NOTE | 2016-08-23 05:55 | NUR ---
PT RESTING ON BACK WATCHING TELEVISION. PT OFFERS NO COMPLAINTS AT THIS TIME.
--- NOTE | 2016-08-23 07:30 | NUR ---
ASSUMED CARE, SLEEPING, SITTER IN ATTENDANCE.
--- NOTE | 2016-08-23 07:55 | NUR ---
AWAKE, REQUESTING A NEBULIER TX. LUNGS: BILATERAL INSPIRATORY AND EXPIRATORY WHEEZING. DR. ARCELIA MEYER, RESPIRATORY PAGED.
--- NOTE | 2016-08-23 09:16 | NUR ---
THIS RN SPOKE WITH RAHUL AT [facility] WHO STATES PT WAS LAST MEDICATED YESTERDAY 08/22/[address] PANIAGUA AWARE
--- NOTE | 2016-08-23 10:38 | NUR ---
LUNCH TRAY ORDERED
--- NOTE | 2016-08-23 13:00 | NUR ---
OOB TO CHAIR, USING PHONE,
--- NOTE | 2016-08-23 15:05 | NUR ---
FOOD TRAY ORDERED
--- NOTE | 2016-08-23 17:32 | NUR ---
REQUESTING INHLALER, USED ALBUTERL INHALER ( PUFFS).
--- NOTE | 2016-08-23 18:15 | NUR ---
PT REQUESTING ATIVAN, STATES "I FEEL NERVOUS INSIDE".
--- NOTE | 2016-08-23 19:16 | NUR ---
PT'S MOM DROP OFF MONEY FOR PT'S REQUEST ADDED TO PT'S VALUABLE, LOCKED IN REFLESHER
--- NOTE | 2016-08-23 19:30 | NUR ---
ASSUMED CARE FROM PATRICIA JASON
--- NOTE | 2016-08-23 19:45 | NUR ---
PT SLEPPING. RESP UNLABORED. NO APPARENT DISTRESS. SITTER IN PLACE
--- NOTE | 2016-08-23 20:30 | NUR ---
crisis reviewed with pt poc. Pt aware crisis is performing bed search. pt presenting as calm, alert and cooperative. Pt reports hope that he will either be admitted to [facility] or [facility] in the morning.
--- NOTE | 2016-08-23 22:25 | NUR ---
PT A/O X3. RESP UNLABORED. SKIN WARM AND DRY. NO COMPLAINTS. SITTER IN PLACE
--- NOTE | 2016-08-24 00:43 | NUR ---
PT SLEEPING. RESP UNLABORED. NO APPARENT DISTRESS. SITTER IN PLACE
--- NOTE | 2016-08-24 02:10 | NUR ---
PT C/O SOB. REQUESTING INHALER. PT USED INHALER. REPORTS FEELING BETTER
--- NOTE | 2016-08-24 04:39 | NUR ---
PT SLEEPING. RESP UNLABORED. NO APPARENT DISTRESS. SITTER IN PLACE
--- NOTE | 2016-08-24 06:06 | NUR ---
PT AWAKENED FOR VS. PT CALM AND COPPERTAIVE. PT HAS NO COMPLAINTS. SITTER IN PLACE
--- NOTE | 2016-08-24 07:30 | NUR ---
AWAKE,ALERT, AMBULATORY TO BATHROOM. PT GIVEN DOSE OF INHALER PER HIS REQUEST. 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 SITTER IN ATTENDANCE. Informed waiting has been performed.
--- NOTE | 2016-08-24 10:05 | NUR ---
PT OUT OF ROOM IN [place] AT NURSES STATION POD [address] AKHTAR AWARE
--- NOTE | 2016-08-24 10:14 | NUR ---
FOOD TRAY ORDERED
--- NOTE | 2016-08-24 10:29 | NUR ---
PT TALKING WITH HIS FATHER ON THE PHONE MEDICATED DIRECTED (SEE MAR)
--- NOTE | 2016-08-24 11:38 | NUR ---
PT AMBULATORY TO TELEPHONE. PT AWAITING TRANSFER DOWN TO [facility]. PT CALM AND COOPERATIVE AT THIS TIME. SITTER AT DOOR.
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
--- NOTE | 2016-08-24 12:41 | NUR ---
PT CALM AND COOPERATIVE IN ROOM 14. CRISIS AT BEDSIDE TO DISCUSS PT'S ADMISSION. SITTER AT DOOR.
--- NOTE | 2016-08-24 13:11 | SOCIAL WORKER SOCIAL HX PSYCH ---
Social History Basic Assessment Insurance Authorization: Insurance #1: Insurance name: MED[employer]ARE [employer] Phone number: Policy number: [id number] Group number: Authorization number: Curr Source of Income/Entitlements: Medicaid, Medicare Primary Care Physician: Patient's PCP: PATIENT HAS NO PRIMARY CARE DR PCP's Phone Number: Present Problem: Patient is a 46 year old male with long standing mental health history and a diagnosis of schizoaffective disorder who presents today to [facility] emergency department with auditory hallucinations w/ commands and suicidal ideation with a plan. In past crisis evaluation on 05/2016, pt. reported a previous suicide attempt ~6 years ago by consuming unspecified prescription pills. Patient was most recently assessed by crisis on 06/05/2016 and admitted to [facility]'s inpatient psychiatry unit. Patient was discharged from [facility] on 06/16/2016 with a plan to follow - up with [facility] program, Jennifer Dove APRN and [facility] Visiting Nurse service. Patient indicates he did not follow through with [facility] or [facility] and could not specify why he did not. Patient states the visiting nurse service briefly provided medication administration but he was discharged. Patient reports he no longer has any of his Orestes medication. Patient's blood Orestes level today is less than 0.2. Patient is positive in his urine toxicology screen for amphetamines, benzodiazapines ,cocaine, and methadone. Pt. admits to use of these substances (attends methadone program). Pt. states he consumes substances to aid in the voices and also to counter sleep paralysis / night terrors. Pt. reports voices tell him "I dont deserve anything...I live a garbage life." Pt. reported these concerns to his brother Camden [phone] and his brother encouraged him to seek evaluation at a hospital or else he would contact police. Patient presented today with slurred speech, flat affect, and depressed mood. Pt. reports active suicidal ideation and reports he has intent to harm himself if discharged from the hospital. Pt. is seeking an inpatient admission to address his auditory hallucinations and medication management. Pt. was observed to be slumped and has visible scars on his right arm. Patient was discharged from [facility] with Risperidone 25 mg, Orestes, 300 mg, Cogentin 0.5 mg, and Lorazepam 0.5 mg PRN. This was in addition to home medication of Fluoxetine, Mirtazapine, and Gabapentin. Patient is a diabetic and takes medication for glucose control.>>>>>>>>>Minh Baum TEACHER OF THE EMOTIONALLY DISTURBED; Ellen Naqvi TEACHER OF THE EMOTIONALLY DISTURBED Primary Language? [place] Language(s) Spoken At Home: [place] Living Situation Rents or Owns Home? rents Other Living Arrangement: subsidized housing Feel Safe Where You Are Living No Comments: Pt is not in a current relationship Allergies - Coded Allergies: trazodone (Severe, PRIAPISM 12/25/15) hydroxyzine (From Vistaril) (Intermediate, RESTLESSNESS, SHAKINESS 12/25/15) diphenhydramine (From BENADRYL) (Mild, shaky but not as bad as Vistaril 02/02/16 ) ibuprofen (not to take ibuprofen/Motrin while on Orestes prophylaxis 02/03/16) Current Medications - Scheduled Medications Amlodipine Besylate 5 MG TABLET 1 TAB PO DAILY BP #15 (Reported) Entered as Reported by RAND MARIANO on 06/05/16 1638 Amlodipine Besylate 5 MG TABLET 1 TAB PO DAILY BP #15 TAB Prescribed by DARIA KILGORE APRN on 06/16/16 Benztropine Mesylate 0.5 MG TABLET 0.5 MG PO DAILY SIDE EFFECTS #42 TAB Prescribed by DARIA KILGORE APRN on 06/16/16 Fluoxetine HCl 10 MG CAPSULE 1 CAP PO DAILY MENTAL HEALTH #30 (Reported) Entered as Reported by RAND MARIANO on 06/05/16 1633 Fluoxetine HCl 10 MG CAPSULE 1 CAP PO DAILY MENTAL HEALTH #14 CAP Prescribed by DARIA KILGORE APRN on 06/16/16 Gabapentin 300 MG CAPSULE 1 CAP PO TID UNKNOWN #45 (Reported) Entered as Reported by RAND MARIANO on 06/05/16 1638 Gabapentin 300 MG CAPSULE 1 CAP PO TID UNKNOWN #45 Prescribed by DARIA KILGORE APRN on 06/16/16 Orestes Carbonate 300 MG CAPSULE 300 MG PO BID STABLE MOODS #42 CAP Prescribed by DARIA KILGORE APRN on 06/16/16 Lorazepam (Ativan) 0.5 MG TABLET 0.5 MG PO DAILY ANXIETY #3 TAB Prescribed by DARIA KILGORE APRN on 06/16/16 Melatonin 5 MG TABLET 10 MG PO AT BEDTIME SLEEP #14 TAB Prescribed by DARIA KILGORE APRN on 06/16/16 Metformin HCl 850 MG TABLET 1 TAB PO BID DM #30 (Reported) Entered as Reported by RAND MARIANO on 06/05/16 1639 Metformin HCl 850 MG TABLET 1 TAB PO BID DM #28 TAB Prescribed by DARIA KILGORE APRN on 06/16/16 Mirtazapine 7.5 MG TABLET 1 TAB PO QHS MENTAL HEALTH #30 (Reported) Entered as Reported by RAND MARIANO on 06/05/16 1634 Mirtazapine 7.5 MG TABLET 1 TAB PO QHS MENTAL HEALTH #14 TAB Prescribed by DARIA KILGORE APRN on 06/16/16 Risperidone (Risperdal) 2 MG TABLET 2 MG PO BID CLEAR THOUGHTS #42 TAB Prescribed by DARIA KILGORE APRN on 06/16/16 Risperidone Microspheres (Risperdal Consta) 25 MG/2 ML SYRINGE 25 MG IM Q 2 WEEKS CLEAR THOUGHTS #1 SYR Prescribed by DARIA KILGORE APRN on 06/16/16 Sitagliptin Phosphate (Januvia) 100 MG TABLET 1 TAB PO DAILY DM #15 (Reported ) Entered as Reported by RAND MARIANO on 06/05/16 1638 Sitagliptin Phosphate (Januvia) 100 MG TABLET 1 TAB PO DAILY DM #14 TAB Prescribed by DARIA KILGORE APRN on 06/16/16 Scheduled PRN Medications Albuterol Sulfate (Ventolin Hfa) 90 MCG HFA.AER.AD 2 PUF INH Q4P PRN WHEEZING #1 INHAL Prescribed by DARIA KILGORE APRN on 06/16/16 Nicotine Polacrilex (Nicorelief) 4 MG GUM 4 MG PO Q2P PRN nicotine craving #30 GUM Prescribed by DARIA KILGORE APRN on 06/16/16 Past History Past Medical History Any Pertinent Medical History? unobtainable Neurological: NONE EENT: NONE Cardiovascular: NONE Respiratory: asthma Gastrointestinal: NONE Hepatic: hepatitis C Renal: NONE Musculoskeletal: leg and right arm pain due to past surgeries Psychiatric: anxiety, chronic pain disorder, depression, opioid dependence, psychosis (with schizoaffective episodes), schizo affective disorder, substance abuse, Schizoaffective disorder, bipolar type, severe; MRE mixed, with psychotic features. Cocaine use disorder. Cocaine intoxication. Sedative hypnotic use disorder (benzodiazepines). Benzodiazepine intoxication. Opioid use disorder. Opioid intoxication. Cocaine Use Disorder Cocaine Intoxication Benzo.(Xanax)Use Disorder Benzo. 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 No Mother's Age (Current/): 66 Relationship w/Mother: "We don't get along because she hates the way I live." Father's Age (Current/): 66 Relationship w/Father: "We are close." Any Sibling(s)? Yes Sibling's Gender(s)/Age(s): male Sibling 1:, male Sibling 2: Relationship w/Sibling(s): "Good." Relationship w/Friends: "I have good friends." Family Psych/Sub Abuse/Add Hx: maternal uncle - schizophrenia Abuse/Trauma History Trauma History/Current Trauma: emotional, verbal Victim or Perpretator? victim Patient's Age at Time of Trauma: 6 History of Trauma/Abuse Treatment? No Abuse/Trauma Treatment: Denies Legal History Legal Guardian/Address/Phone: Self Current Legal Status: none Pending Court Dates: denies Have you ever been arrested Yes Number of Arrests: 20 Hx of Juvenile Legal Charges? Yes If Yes: unknown Hx of Adult Legal Charges? Yes If Yes: misdemeanor, felony List/Date Most Recent Lgl Chgs: Pt will not elaborate on the specifics of his legal hx but previous medical records indicate that many of the charges were drug/alcohol related. Chgs/Dts/Incarcerations/Sentnc Pt reports having been incarcerated 3x's, last time being 10-15 years ago, and will not elaborate further. Civil Proceedings: N/A Domestic Relations Court: N/A Child Protective Serv Involvmnt N/A Director Workforce Management denies Psychosocial History Primary Support System: father, sibling(s) Strengths/Capabilities: Pt has stable housing. Weaknesses: poor judgement Physical Limitations (Interventions): Impaired functioning in right arm. Last Physical: Unknown History of Seizures? No History of Blackouts? Yes Last Blackout: Unknown ADL Limitations: Denies [place]/Social/Peer Relations "I have good friends." Meaningful Activities: Reports loss of interest/enjoyment. Childhood Zoroastrianism: no voodoo stated Current Jain Affiliation: no voodoo stated Is Spirituality Important to You? Yes Patient's Ethnicity: Belarusian Cultural/Ethnic Issues: Denies Are There Developmental Issues? No Milestones Achieved: fine motor, gross motor Psychiatric Treatment History Psych Treatment Inpatient Treatment Yes Outpatient Treatment Yes Location of Treatment Treatment dates back to 2001 with most recent discharge 05/2016 Reason for Treatment Psychiatric - schizoaffective disorder Dates of Treatment 2001-present Response to Treatment Last [facility] admission did not resolve auditory hallucinations but did resolve suicidal ideation. 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 Psychodynamic Issues: Ongoing substance abuse/chronic relapse, medical problems, lack of sober supports, non-compliance with treatment and medication Risk Factors: access to lethal means, chronic/serious med cond., SA/MH hospitalized, substance abuse, isolate/no social support, poor impulse control, lives alone, male Substance Use/Abuse History Drug Use/Abuse Substance Used/Abused Methamphetamines First Use Unknown Last Used Unknown How much used/taken Unknown How often Unknown For how long Unknown Route of use Unknown Have Had Periods of Sobriety? Yes Explain: Pt stated he was 30 months sober while he was incarcerated. Relapse History? Yes Explain: Pt relapsed when he was released into the community from nursing home. Have You Ever Attended AA? Yes Do You Attend AA Currently? No Do You Have a Sponsor? No Other Community Resources Used: no Symptoms of Use: Pt denies ETOH use. Substance Abuse Treatment Substance Abuse Treatment Inpatient Treatment Yes Outpatient Treatment Yes Location of Treatment [facility] Reason for Treatment Methadone maintanence, opioid use Dates of Treatment Unknown Response to Treatment Varied Sexual History Sexually Active No # of partners 0 Sexual Orientation Heterosexual Sexual Concerns: denies Education History Highest Level of Education: high school/GED Highest Grade Completed: 9th Vocational Year Completed: 0 Number of College Years: 0 Preferred Learning Style: any HX of Learning Difficulties: None reported Barriers to Learning: None reported Special Communication Needs: None reported Employment History Employment Disability Not in Labor Force: Disabled Vocation/Occupational Hx: 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 No. of Jobs in Last 5 Years: 0 Attendance: Normal Performance: Good Comments: Pt said he has not worked in over 5 years. History Have You Been in The ? No Current Mental Status Mental Status Orientation: Person, Place, Situation Affect: Depressed, Flat Speech: Slurred, Soft Neuro-vegetative: Anhedonia, Energy Decreased, Loss of Interest, Sleep Disturbance Appearance Appearance- Dress/Hygiene: Pt. dressed in hospital attire. Pt. has a visible scar in his right arm. Behaviors Thought Process: WNL Thought Content: Auditory Hallucinations Memory: WNL Insight: Poor SI/HI Risk Assessment Past Suicidal Ideation/Attempts Yes Current Suicidal Ideation/Att Yes Past Homicidal Ideation/Att: No Current Homicidal Ideation/Attempts No Degree of Intent: Made Preparations, Plan, States Intent Danger To: Self Gravely Disabled: Lack of Insight, Poor Impulse Control, Poor Judgment Risk Factors: Access to lethal weapons, High Anxiety/Distress, SA/MH Hospitalization(s), Lives alone, Male, Poor impulse control, Substance Abuse Lethality Ratin - Conclusion and Recommendations for treatment - and discharge planning Summary: Patient is a 46 year old male with long standing mental health history and a diagnosis of schizoaffective disorder who presents today to [facility] emergency department with auditory hallucinations w/ commands and suicidal ideation with a plan. In past crisis evaluation on 05/2016, pt. reported a previous suicide attempt ~6 years ago by consuming unspecified prescription pills. Patient was most recently assessed by crisis on 06/05/2016 and admitted to [facility]'s inpatient psychiatry unit. Patient was discharged from [facility] on 06/16/2016 with a plan to follow - up with [facility] program, Jennifer Dove APRN and [facility] Visiting Nurse service. Patient indicates he did not follow through with [facility] or [facility] and could not specify why he did not. Patient states the visiting nurse service briefly provided medication administration but he was discharged. Patient reports he no longer has any of his Orestes medication. Patient's blood Orestes level today is less than 0.2. Patient is positive in his urine toxicology screen for amphetamines, benzodiazapines ,cocaine, and methadone. Pt. admits to use of these substances (attends methadone program). Pt. states he consumes substances to aid in the voices and also to counter sleep paralysis / night terrors. Pt. reports voices tell him "I dont deserve anything...I live a garbage life." Pt. reported these concerns to his brother Camden [phone] and his brother encouraged him to seek evaluation at a hospital or else he would contact police. Patient presented today with slurred speech, flat affect, and depressed mood. Pt. reports active suicidal ideation and reports he has intent to harm himself if discharged from the hospital. Pt. is seeking an inpatient admission to address his auditory hallucinations and medication management. Pt. was observed to be slumped and has visible scars on his right arm. Patient was discharged from [facility] with Risperidone 25 mg, Orestes, 300 mg, Cogentin 0.5 mg, and Lorazepam 0.5 mg PRN. This was in addition to home medication of Fluoxetine, Mirtazapine, and Gabapentin. Patient is a diabetic and takes medication for glucose control. Pt will be admitted to [facility] for mood stabilization and safety .
--- NOTE | 2016-08-24 17:29 | NUR ---
PT IS CALM, COOPERATIVE, RESPECTFUL AND COMPLIANT THUS FAR, POOR MEDICATION HISTORIAN THEREFORE MEDICATION REC DONE TO THE BEST OF THIS RN/PT ABILITY. DR. WALLACE NOTIFIED OF H&P AND NEED FOR DIABETIC MEDICATION (JANUVIA/METFORMIN ORDERS NEEDED) & TELEPHONE ORDERS RECEIVED AND FAXED TO PHARMACY. PT PLACED ON CIWA Q2ATC STAFF INTERVENTION AT THIS TIME FOR BENZO WITHDRAWAL MONITORING, VITAL SIGNS STABLE WITH NO COMPLAINTS NOTED OR REPORTED, ACCU CHECKS DAILY ORDERED AND BLOOD SUGAR = 182. WHEN ASKED RE: SI PT REPORTED PASSIVE THOUGHTS "JUST RATHER NOT WAKE UP" BUT NO PLAN OR INTENT AND FEELS SAFE HERE AND WOULD NOT TRY TO HARM SELF AND WOULD LET STAFF KNOW IF ANYTHING CHANGED (DR. CAPPS AWARE), DENIES HI AND T/V HALLUCINATIONS AND DOES REPORT MEAN/DEROGATORY AH. WILLING AND MOTIVATED TO ACCEPT HELP FROM CPS. OVERALL PT IS STABLE, PRESENT WITHIN THE COMMUNITY AND ABLE TO ARTICULATE AND VERBALIZE NEEDS. SKIN THAT IS VISIBLE IS CLEAN, DRY AND INTACT EXCEPT FOR MINOR 1/2 INCH X 1/2 INCH BLEMISH ON RIGHT CHEEK AND DENIED ANY OTHER ALTERATION TO SKIN THAT IS NOT VISIBLE. PT REPORTS BEING ON METHADONE MAIN @ [facility] [place] AND DID RECEIVE 40MG DOSE (PER PT) TODAY AND ATTEMPTING TO VERIFY FOR FUTURE CPS DOSING. PT PRESENT WITH PEERS AT THIS TIME, NO ACUTE DISTRESS.
--- NOTE | 2016-08-24 17:49 | NUR ---
SPOKE WITH VINCE MUJICA FROM [facility] IN [place] [phone]. PT'S METHADONE DOSE IS 40 MG. PT LAST MEDICATED AT [facility] ON 08/22/16.
[2016-08-24 19:49] VITALS: BP 117/69
--- NOTE | 2016-08-24 21:37 | NUR ---
PT IS VISIBLE ON UNIT, MOSTLY STAYING TO HIMSELF AND WATCHING TV. COOPERATIVE AND COMPLIANT WITH STAFF. REFUSED AA THIS EVENING. NO COMPLAINTS OR SI REPORTED. PT HAS A STABLE MOOD AND FULL RANGE AFFECT.
[2016-08-25] VITALS (9 sets, daily range): BP systolic 104–130; BP diastolic 61–77
--- NOTE | 2016-08-25 15:14 | NUR ---
PT PRESENT IN COMMUNITY. PT STAYING TO HIMSELF BUT IS ATTENDING GROUPS. PT APPEARS SLEEPY. PT MOOD STABLE - FULL RANGE AFFECT. PT APPETITE GOOD. VS WNL. NO COMPLAINTS OFFERED.
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
--- NOTE | 2016-08-25 17:54 | SOCIAL WORKER TX PLAN PSYCH ---
Treatment Plan - Please Document: - Evidence that there is ongoing collaboration between - the patient and the interdisciplinary team, - including the patient's active participation and - responsibility for engaging in the treatment regimen, - and that the treatment plan is individualized and - relevant to the patient's conditions. - Treatment plan should reflect documentation indicating - that all active therapeutic efforts are included. Strengths/Capabilities: Pt has stable housing. Physical Limitations (Interventions): Impaired functioning in right arm. DSM5/PS Stressors/Medical Prob Diagnosis' (DSM 5, Stressors, Medical): F25.0 Schizoaffective disorder, Bipolar type F33.2 Major depressive disorder, Recurrent episode, Severe F11.20 Opioid use disorder, Moderate F14.20 Stimulant (cocaine) use disorder, Moderate Current GAF: 22 Treatment Team - Responsibilities of members of the treatment team include: - Medication Management- MD or GEAR GRINDING MACHINE OPERATOR - Medication Administration and Monitoring- Nurse - Group Therapy- Occupational Therapist - 1:1 Therapy,Disch Planning,family involvement-Agriculture Laborer
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
--- NOTE | 2016-08-25 20:30 | NUR ---
PT HAS BEEN WITHDRAWN AND ISOLATIVE. HE REPORTED FEELING ANXIOUS BUT HAS BEEN COMPLIANT. WHEN NOT IN HIS ROOM PT SITS IN FRONT ON THE FISHTANK AND RARELY IN THE LG. HE WILL WATCH TV WHEN THE MAJORITY OF PEOPLE ARE ELSEWHERE. PT DENIES ANY THOUGHTS OF SI AT THIS TIME.
[2016-08-26] VITALS (9 sets, daily range): BP systolic 105–132; BP diastolic 55–75
--- NOTE | 2016-08-26 04:13 | NUR ---
Up at 0245 for inhaler and PRN. Slept, no further issues or complaints
--- NOTE | 2016-08-26 11:14 | CP SOUTH PROGRESS NOTE PSYCH ---
Psych (Inpt) Progress Note Progress Note Include the following elements, when applicable: Involvement in the active treatment of the patient with behavioral observations of the patient and the patient's response to the treatment. Review of the ongoing treatment process in the context of the treatment plan. Indication of how multi-disciplinary staff members are carrying out the treatment plan. Plans for future interventions and recommendations for revision of the treatment plan. Liaison with other physicians/providers. Progress Note: Pt notes that he is "not too good" today. He has not been sleeping well. He feels very anxious and "restless." Although he denied SI or HI, he has been thinking about "going into the [place] without a compass or GPS and disappearing with no way out to ." He feels that he deserves this kind of punishment as he "did bad things in the past." Denies AVHs. Current Medications Sig/Hiral Start time Last Medication Dose Route Stop Time Status Admin Albuterol Sulfate 2 PUF Q4P PRN 08/23 08 AC 08/26 INH 0830 [place] Carbonate 300 MG 08,08/24 AC 08/26 PO 0805 Lorazepam 1.5 MG Q4P PRN 08/24 191 AC PO Lorazepam 1 MG Q4P PRN 08/24 1900 AC 08/26 PO 0533 Lorazepam 0.5 MG 0800,1300,1700,2200 08/24 1700 AC 08/26 PO 08/31 1659 0805 Melatonin 9 MG AT BEDTIME 08/26 2200 UNVr PO Melatonin 5 MG AT BEDTIME NEED.. 08/24 191 DC 08/24 PO 2137 Metformin HCl 500 MG 0800,1700 08/24 1730 AC 08/26 PO 0805 Methadone HCl 40 MG 0808/25 08 AC 08/26 PO 0805 Mirtazapine 7.5 MG AT BEDTIME 08/26 2200 AC PO Nicotine 4 MG Q2P PRN 08/24 1645 AC 08/26 PO 0642 Risperidone 25 MG Q 2 WEEKS 08/26 1000 AC IM Risperidone 1 MG Q6P PRN 08/24 191 AC 08/26 PO 0250 Risperidone 1 MG 0800,1300,1700,2200 08/24 1700 AC 08/26 PO 0806 Sitagliptin Phosphate 100 MG 0808/25 08 AC 08/26 PO 0805 Vital Signs Date Time Temp Pulse Resp B/P B/P Pulse O2 O2 Flow FiO2 Mean Ox Delivery Rate 08/26 809 97.1 89 126/71 / 0746 97.1 89 126/71 08/26 0639 84 105/65 08/26 0534 97.9 84 18 132/72 08/26 1999 96.9 84 127/77 08/25 1957 96.9 84 127/77 08/25 1551 86 130/70 05 1544 86 130/70 0505 1225 92 115/64 05 1222 92 115/64 MSE Appears much older than as stated age. Cooperative behavior, good, appropriate eye contact. Halting speech with prolonged pauses. +psychomotor retardation Mood and goal directed thought process. Denies SI or HI but notes plan to go into the [place] and disappear that would be equivalent to killin self. Does not appear to be responding to internal stimuli. Denies AVHs, paranoia, or delusions. I/J: limited. A/P: Pt with SAD, bipolar type and PSD now with very poor mood and increased anxiety. - Start mirtazapine 7.5mg qhs for mood and sleep - Increase melatonin to 9mg (new data showing that dosing up to 12-15mg can be effective) - CBC at AM for elevated white count - BMP at AM for low sodium - Otherwise continue current medication regimen - [place] level on Monday 08/28 - Encourage groups
--- NOTE | 2016-08-26 13:47 | NUR ---
Malick was visible throughout the day. Appeared anxious and asking for medications to assist in this, ativan, and his Albuterol inhaler. IM Risperdone given this am. Spoke of knowing a doctor who has a medication that can cure Hep C, and he would like to have it when he is discharged, Kept to himself most of the shift. Denies SH/HI/. Spent much time wandering the halls.
--- NOTE | 2016-08-26 16:21 | History & Physical ---
General Information and HPI MD Statement: I have seen and personally examined GERTRUDE URBINA and documented this H&P. The patient is a 46 year old M who presented with a patient stated chief complaint of "I'm hearing voices". Source of Information: patient Exam Limitations: no limitations History of Present Illness: 46-year-old white male been having auditory hallucinations for 1 day he is hearing voices telling him "coming to get you", there one-stop this voices are telling him to harm himself and harm to others that the symptoms seem severe and apparently run out of the lithium the day before admission and used cocaine 2-3 weeks ago. His affect is flat he seems depressed and having suicidal ideations for all those reasons is admitted for evaluation and treatment. Allergies/Medications Allergies: Coded Allergies: trazodone (Severe, PRIAPISM 12/25/15) hydroxyzine (From Vistaril) (Intermediate, RESTLESSNESS, SHAKINESS 12/25/15) diphenhydramine (From BENADRYL) (Mild, shaky but not as bad as Vistaril 02/02/16 ) ibuprofen (not to take ibuprofen/Motrin while on [place] prophylaxis 02/03/16) Home Med list Albuterol Sulfate (Ventolin Hfa) 90 MCG HFA.AER.AD 2 PUF INH Q4P PRN WHEEZING NEEDED Amlodipine Besylate 5 MG TABLET 1 TAB PO DAILY BP (Reported) Amlodipine Besylate 5 MG TABLET 1 TAB PO DAILY BP Benztropine Mesylate 0.5 MG TABLET 0.5 MG PO DAILY SIDE EFFECTS TAKE ONE IN THE MORNING, AND TWO AT NIGHT. Fluoxetine HCl 10 MG CAPSULE 1 CAP PO DAILY MENTAL HEALTH (Reported) Fluoxetine HCl 10 MG CAPSULE 1 CAP PO DAILY MENTAL HEALTH Gabapentin 300 MG CAPSULE 1 CAP PO TID UNKNOWN (Reported) Gabapentin 300 MG CAPSULE 1 CAP PO TID UNKNOWN [place] Carbonate 300 MG CAPSULE 300 MG PO BID STABLE MOODS TAKE ONE CAPSULE IN THE MORNING, AND TWO AT NIGHT. Lorazepam (Ativan) 0.5 MG TABLET 0.5 MG PO DAILY ANXIETY TAKE ONE DAILY FOR THREE DAYS, THEN STOP. Melatonin 5 MG TABLET 10 MG PO AT BEDTIME SLEEP Metformin HCl 850 MG TABLET 1 TAB PO BID DM (Reported) Metformin HCl 850 MG TABLET 1 TAB PO BID DM Mirtazapine 7.5 MG TABLET 1 TAB PO QHS MENTAL HEALTH (Reported) Mirtazapine 7.5 MG TABLET 1 TAB PO [facility] MENTAL HEALTH Nicotine Polacrilex (Nicorelief) 4 MG GUM 4 MG PO Q2P PRN nicotine craving Risperidone (Risperdal) 2 MG TABLET 2 MG PO BID CLEAR THOUGHTS TAKE ONE TABLET IN THE MORNING, AND TWO TABLETS AT NIGHT. Risperidone Microspheres (Risperdal Consta) 25 MG/2 ML SYRINGE 25 MG IM Q 2 WEEKS CLEAR THOUGHTS NEXT DOSE ON 06/26/2016. Sitagliptin Phosphate (Januvia) 100 MG TABLET 1 TAB PO DAILY DM (Reported) Sitagliptin Phosphate (Januvia) 100 MG TABLET 1 TAB PO DAILY DM Compliance With Home Meds: UNKNOWN Past History Travel History Traveled to [place] past 21 day No Medical History Any Pertinent Medical History? unobtainable Neurological: NONE EENT: NONE Cardiovascular: NONE Respiratory: asthma Gastrointestinal: NONE Hepatic: hepatitis C Renal: NONE Musculoskeletal: leg and right arm pain due to past surgeries Psychiatric: anxiety, chronic pain disorder, depression, opioid dependence, psychosis (with schizoaffective episodes), schizo affective disorder, substance abuse, Schizoaffective disorder, bipolar type, severe; MRE mixed, with psychotic features. Cocaine use disorder. Cocaine intoxication. Sedative hypnotic use disorder (benzodiazepines). Benzodiazepine intoxication. Opioid use disorder. Opioid intoxication. Cocaine Use Disorder Cocaine Intoxication Benzo.(Xanax)Use Disorder Benzo. 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 . UNCLE (UNCLE WITH PSYCHOSIS). Relation not specified for: *No pertinent family history Psychosocial History Where do you live? Home Who Do You Live With? self Services at Home: None Primary Language: Estonian ETOH Use: denies use Illicit Drug Use: cocaine, heroin Functional Ability ADLs Independent: dressing, eating, toileting, bathing. Ambulation: independent IADLs Unknown: shopping, housework, finances, food prep, telephone, transportation, medication admin. 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 Review of Systems Review of Systems Constitutional: Reports: see HPI. Exam & Diagnostic Data Last 24 Hrs of Vital Signs/I&O Vital Signs Date Time Temp Pulse Resp B/P B/P Pulse O2 O2 Flow FiO2 Mean Ox Delivery Rate 08/26 1614 96 123/75 05/ 1228 92 107/55 05/06 1222 92 107/55 05/06 0810 97.1 89 126/71 05/06 0746 97.1 89 126/71 05/06 0639 84 105/65 05/06 0534 97.9 84 18 132/72 05/05 1999 96.9 84 127/77 05/05 195 96.9 84 127/77 Physical Exam General Appearance Alert, Oriented X3, Cooperative Skin No Rashes, No Breakdown HEENT PERRLA, EOMI, Mucous Membr. moist/pink Neck Supple, No JVD, No thryomegaly Lymphatic Axillary nl, Cervical nl Cardiovascular Regular Rate, No Murmurs Lungs Clear to Auscultation, Normal Air Movement Abdomen Normal Bowel Sounds, Soft, No Tenderness, No Hepatospenomegaly Neurological Exam Findings: nonfocal Cranial Nerves II through XII: Intact Extremities No Cyanosis, No Edema, Normal Pulses Last 24 Hrs of Labs/Shoaib: Last blood work available is from August 22. Assessment/Plan As Ranked By This Provider Problem List: 1. Schizophrenia 2. Paranoia 3. Auditory hallucination Miscellaneous Miscellaneous Documentation Attending Case Discussed With: JEFRY LINN,GENE See Primary Care Physician: PATIENT HAS NO PRIMARY CARE DR Patient sees these Specialists Psychiatry Level of Patient Care: [facility] Consults Needed: Consulting Specialty: Psychiatry Consulting Physician: Gene Klein MD Reason for Consult: auditory hallucinations, depression
--- NOTE | 2016-08-26 20:58 | NUR ---
PT IS ISOLATIVE AND WITHDRAWN, REMAINING IN BED FOR MAJORITY OF EVENING. MINIMAL INTERACTION WITH PEERS, COOPERATIVE AND COMPLIANT WITH STAFF. NO COMPLAINTS OR SI REPORTED. PT HAS A STABLE MOOD AND FLAT AFFECT.
[2016-08-27] VITALS (9 sets, daily range): BP systolic 111–143; BP diastolic 61–87
--- NOTE | 2016-08-27 05:57 | NUR ---
PT UP A FEW TIMES IN THE NIGHT. PT APPEARS PREOCCUPIED. ATIVAN 1 PRN AND RISPERDAL 1 PRN AT 0515.
--- NOTE | 2016-08-27 11:57 | CP S[facility]TH PROGRESS NOTE PSYCH ---
Psych (Inpt) Progress Note Progress Note Include the following elements, when applicable: Involvement in the active treatment of the patient with behavioral observations of the patient and the patient's response to the treatment. Review of the ongoing treatment process in the context of the treatment plan. Indication of how multi-disciplinary staff members are carrying out the treatment plan. Plans for future interventions and recommendations for revision of the treatment plan. Liaison with other physicians/providers. Pt notes rash on his face. He reports "furious" mood and is concerned that "taking too much medication." He repeated several times that he did not want to be "a zombie person." Denies SI or HI. Denies AVHs though clear thought blocking. Current Medications Sig/Hiral Start time Last Medication Dose Route Stop Time Status Admin Acetaminophen 650 MG Q8P PRN 08/26 1845 AC 08/26 PO 1851 Albuterol Sulfate 2 PUF Q4P PRN 08/23 0800 AC 08/27 INH 0432 Lidocaine 1 PAT Q24H 08/26 1900 AC 08/26 EXT 1957 [place] Carbonate 300 MG 08,08/24 AC 08/27 PO 0746 Lorazepam 1.5 MG Q4P PRN 08/24 191 AC PO Lorazepam 1 MG Q4P PRN 08/24 1900 AC 08/27 PO 0519 Lorazepam 0.5 MG 0800,1300,1700,2200 08/24 1700 AC 08/27 PO 08/31 1659 0746 Melatonin 9 MG AT BEDTIME 08/26 2200 AC 08/26 PO 2233 Metformin HCl 500 MG 0800,1700 08/24 1730 AC 08/27 PO 0746 Methadone HCl 40 MG 0800 08/25 0800 AC 08/27 PO 0747 Mirtazapine 7.5 MG AT BEDTIME 08/26 2200 AC 08/26 PO 2233 Nicotine 4 MG Q2P PRN 08/24 1645 AC 08/27 PO 0432 Risperidone 25 MG Q 2 WEEKS 08/26 1000 AC 08/26 IM 1112 Risperidone 1 MG Q6P PRN 08/24 191 AC 08/27 PO 0516 Risperidone 1 MG 0800,1300,1700,2200 08/24 1700 AC 08/27 PO 0747 Selenium Sulfide 1 OBI DAILY 08/27 1035 AC TOP Sitagliptin Phosphate 100 MG 0800 08/25 0800 AC 08/27 PO 0746 Vital Signs Date Time Temp Pulse Resp B/P B/P Pulse O2 O2 Flow FiO2 Mean Ox Delivery Rate 08/27 821 96.4 84 133/64 08/27 809 96.4 84 133/64 08/27 2003 98.1 97 118/60 08/27 1955 98.1 97 118/60 08/26 1614 96 123/75 05 1228 92 107/55 08/26 1222 92 107/55 MSE Appears much older than as stated age. Cooperative behavior, good, appropriate eye contact. Halting speech with prolonged pauses. +psychomotor retardation Mood blocking. Denies SI or HI but notes plan to go into the lomax and disappear that would be equivalent to killing self. Does not appear to be responding to internal stimuli. Denies AVHs, paranoia, or delusions. I/J: limited. A/P: Pt with SAD, bipolar type and PSD now with very poor mood and increased anxiety. 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
--- NOTE | 2016-08-27 13:52 | NUR ---
PT HAS BEEN WITHDRAWN AND ISOLATIVE IN BED; SLEEPING MAJORITY OF DAY. PT REPORTS FEELING QUITE DROWSY- IS UNSURE WHY. PT NOTED TO BE FALLING ASLEEP A BIT IN THE COMMUNITY. PT CAN BE SLOW TO RESPOND. PT REPORTS HAVING SOME "BAD THOUGHTS" BUT STATES HE WILL NOT HARM SELF HERE. NO REPORTS OF AH. PT HAS ATTENDED ONE GROUP TODAY. VITALS ARE STABLE, APPETITE IS GOOD.
--- NOTE | 2016-08-27 22:23 | NUR ---
PT IS CALM, COOPERATIVE WITH STAFF AND PEERS, AND COMPLIANT WITH UNIT RULES. PT IS OFTEN OUT OF MILIEU, SLEEPING IN PT ROOM. WILL ENTER MILIEU AT TIMES, AND WILL INTERACT WITH OTHERS TO SOME EXTENT. MOOD IS STABLE, AFFECT APPEARS EUTYMIC, COMMUNICATION IS ORGANIZED AND APPEARS NORMAL IN ALL RESPECTS, AND APPETITE IS NORMAL. PT DENIES SI AT THIS TIME.
--- NOTE | 2016-08-28 05:17 | NUR ---
PT SLEPT ON AND OFF, UP EARLY. PT PREOCCUPIED. PT HAS LITTLE INSIGHT INTO HIS DRUG RELIANCE CAUSING MENTAL FOGGINESS WHICH HE COMPLAINS ABOUT.
[2016-08-28 07:55] VITALS: BP 108/65
[2016-08-28 07:59] VITALS: BP 108/65
[2016-08-28 08:12] LABS: ABSOLUTE BASOPHIL COUNT 0 /CUMM (0.0-0.2); ABSOLUTE EOSINOPHIL COUNT 0.3 /CUMM (0.0-0.7); ABSOLUTE GRANULOCYTE CT 5.7 /CUMM (1.4-6.5); ABSOLUTE LYMPH COUNT 2.1 /CUMM (1.2-3.4); ABSOLUTE MONOCYTE COUNT 0.5 /CUMM (0.10-0.60); BASOPHIL % 0.5 % (0.0-2.0); EOSINOPHIL % 3.7 % (0-5); GRANULOCYTE % 65.6 % (42.2-75.2); HEMATOCRIT 41.8 % (42-52); MEAN CORPUSCULAR HGB 28.1 PG (27.0-31.0); MEAN CORPUSCULAR HGB CONC 32.9 G/DL (33.0-37.0); MEAN CORPUSCULAR VOLUME 85.4 FL (80.0-94.0); PLATELET COUNT 188 /CUMM (130-400); RBC DISTRIBUTION WIDTH 14.1 % (11.5-14.5); RED BLOOD CELL CT 4.89 /CUMM (4.70-6.10); WHITE BLOOD CELL COUNT 8.7 /CUMM (4.8-10.8)
--- NOTE | 2016-08-28 11:31 | SOCIAL WORKER PROG NOTE PSYCH ---
Social Work Progress Note Progress Note SW met with pt this morning. Pt was having difficulty keeping his eyes open as he spoke and his speech was delayed. Pt expressed that he is very tired because he has not slept since begin admitted. Pt also expressed that he is feeling confused and having a difficult time organizing his thoughts. Pt did appear to have difficulty expressing what he wanted to says and at times was not able to formulate words for what he wanted to say. Pt denies active SI. He reported that the voices have decreased and that the voice he does here is not telling him to do anything bad rather telling him to take care of his spirit and do the right thing or else. Pt asked when will he be discharging. Asked pt what would be a good plan for his follow-up treatment as he never goes to IOP as recommended. Pt expressed that he would like to have weekly individual therapy and a psychiatrist for medication. Pt explains that he would not go to [facility] asd he hates to groups and does not trust people he does not know and does not care to hear about other people's problems. Pt was agreeable to signing a release for his father, but made it clear that it is only for a conference call with him present. Pt specified that he does not want staff contacting his father unless he is present. This was indicated in writing on the release at pt's request.
[2016-08-28 12:30] VITALS: BP 109/64
[2016-08-28 12:31] VITALS: BP 109/64
--- NOTE | 2016-08-28 12:37 | NUR ---
PT VISIBLE MOST OF THE DAY IN THE MILIEU. HE WENT TO PLANNING MEETING THIS MORNING AND MADE THE GOAL TO VISIT WITH FAMILY. PT HAS BEEN GOING TO GROUPS THROUGHOUT THE DAY, AND HAS BEEN COOPERATIVE WITH STAFF DIRECTION. PT DENIES THOYUGHTS OF HURTING HIMSELF WHEN ASKED.
--- NOTE | 2016-08-28 15:34 | CP SOUTH PROGRESS NOTE PSYCH ---
Psych (Inpt) Progress Note Progress Note Include the following elements, when applicable: Involvement in the active treatment of the patient with behavioral observations of the patient and the patient's response to the treatment. Review of the ongoing treatment process in the context of the treatment plan. Indication of how multi-disciplinary staff members are carrying out the treatment plan. Plans for future interventions and recommendations for revision of the treatment plan. Liaison with other physicians/providers. Progress Note: PSYCHIATRIST NOTE, 08/28/2016: I discussed this patient's progress to date, current mental status, treatment and discharge planning with staff team today in the daily morning ITTM and also met with him again myself in individual session. Patient reported "off and on" sleep last night but also acknowledged napping during the daytime, feeling somewhat sedated on current medication regimen and "I don't want to become a Zombie!" He added "I don't need the Ativan during the day anymore," which was encouraging; we decided to taper away current low dose of Ativan, discontinue PRN Ativan and CIWA's, and reduce regular dose of oral Risperdal from 4mg to 3mg daily and move entire dose to HS; I will not taper oral Risperdal any further at this time because patient has only had his first Consta injection back on the depot medication, don't recommend decreasing past that dose until after he has his second Consta injection. I spent some time with patient today going over the pattern he has established, that of discontinuing outpatient treatment, stopping or running out of his medications and renewing/ intensifying his abuse of cocaine and other destabilizing drugs; he was not able to see the point of what I was trying to get across to him, responding instead about the benefits he receives from cocaine, Adderall, Xanax, etc.; I will rejoin this discussion with patient after he has been back on his regular psychotropic medications a little longer. Patient was positive regarding my suggestion that we try to have a telephone conference call meeting with his father (who is living in [place] and has asked patient to join him there; patient also has a brother in [place]).
[2016-08-28 16:23] VITALS: BP 125/57
[2016-08-28 19:58] VITALS: BP 110/58
--- NOTE | 2016-08-28 23:00 | NUR ---
PT HAS BEEN QUIET AND DOES NOT COMMUNICATE MUCH ON THE UNIT. HE HAS SPENT ALOT OF TIME ASLEEP IN BED AND EXPRESSED TO STAFF THAT HE WANTED TO TALK TO THE DR NOEL BECAUSE HE WAS FEELING ANXIOUS. PT WAS DIRECTED TO SIT IN FRONT OF THE FISH TANK UNTIL HE WAS FEELING SAFE. PT DENIES SI AT THIS TIME.
--- NOTE | 2016-08-29 05:59 | NUR ---
PATIENT SLEPT FROM 0030 TO 0200 AND 0300 TO 0500, RESTLESS, WAKING AT TIMES; GIVEN PRN MELATONIN (SECOND DOSE) OF 9MG AT 0224; PATIENT WHEEZING APPEARED INCREASED; PRN ALBUTEROL INHALER GIVEN AT 2319 AND 0537 WITH GOOD EFFECT; PATIENT ALERT AND ORIENTED X3, SLIGHTLY IRRITABLE.
[2016-08-29 08:04] VITALS: BP 124/65
[2016-08-29 08:59] LABS: LITHIUM 0.4 mmol/L (0.6-1.2)
[2016-08-29 12:04] VITALS: BP 110/66
--- NOTE | 2016-08-29 13:52 | NUR ---
PT HAS BEEN IN THE MILIEU SOME OF THE DAY. HE MADE NO GOAL IN PLANNING MEETING BUT DID ATTEND GROUP. PT WENT TO SOME OF THE OTHER GROUPS TODAY. HE IS COMPLIANT WITH THE RULES OF THE UNIT. PT DID REPORT HAVING THOUGHTS TO HURT HIMSELF, STATING THAT HE HEARS VOICES TO BUT DOES NOT HAVE A PLAN TO ACT ON IT.
--- NOTE | 2016-08-29 15:35 | CP SOUTH PROGRESS NOTE PSYCH ---
Psych (Inpt) Progress Note Progress Note Include the following elements, when applicable: Involvement in the active treatment of the patient with behavioral observations of the patient and the patient's response to the treatment. Review of the ongoing treatment process in the context of the treatment plan. Indication of how multi-disciplinary staff members are carrying out the treatment plan. Plans for future interventions and recommendations for revision of the treatment plan. Liaison with other physicians/providers. Progress Note: The patient is a 46-year-old white man who was admitted on 08/24/16. He is known to me from his prior treatment on [facility]. He carries the diagnosis schizoaffective disorder, opioid use disorder, stimulant use disorder, sedative/ hypnotic use disorder. Case and treatment plan discussed in team meeting. Staff reports that the patient has been up and down. Yesterday he submitted a three-day paper then rescinded it. Said he was feeling confused. Had poor sleep. [place] level was low at 0.4. Patient seen at 1:03 PM. He is casually dressed in all dark clothing. He states "how about discharge?" Reports that he woke up feeling like a completely different person. States "it's so good, I'm waiting for the other shoe to drop. " States that the auditory hallucinations are not commanding or scaring him. They say his name or he hears his brother hollering at him. States he is not having confusion but reports that his memory is still shot. We discussed his low lithium level and he agreed to a dose increase to 300 mg in the morning and 600 mg at 8 PM. Affect is calm and blunted to euthymic. Describes mood as "good, very good, excellent." Rates sad mood 0/10 and anxiety 3/10. Denies feeling hopeless, helpless or worthless. Reports he always feels guilty. Denies active suicidal ideation. Reports passive suicidal ideation. He gives a safety promise for here. Denies homicidal ideation. Denies visual hallucinations. When asked if anyone is out to harm him, he responded "realistically, yeah, some people in my neighborhood." Denies magical baxter. Reports sleep is too good and claims that he sleeps wherever, even standing. Also reports middle of the night awakenings. He appears awake and alert. Reports appetite is normal. Describes energy as "good, real good." Tolerating medications well, without complaint. Patient may be having a telephonic family meeting with his father soon. IMPRESSION: Slow progress. Continue present treatment plan. Patient is eager for discharge. I have increased lithium dose as noted above. I ordered a lithium level for 09/01/16 for if the patient is still on [facility] then.
[2016-08-29 15:59] VITALS: BP 116/65
--- NOTE | 2016-08-29 16:19 | SOCIAL WORKER PROG NOTE PSYCH ---
Social Work Progress Note Progress Note Malick feels less confused today. Reported that yesterday he was having a hard time hearing what was being said to him and what he was saying. He feels clearer today. 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 He is looking to get a second vehicle and hire another public transit trolley driver. Asked if the money would increase his risk of using drugs? He agreed that it could possibly. He does not want to follow up with an IOP after discharge. He is advocating for outpatient services. Continues to say that he just wants to see a doctor. We talked about calling his Dad tomorrow for a phone conference. I told him I would check to see if Dr. Klein wanted to be part of that.
[2016-08-29 19:52] VITALS: BP 133/70
--- NOTE | 2016-08-29 22:36 | NUR ---
PT IS CALM, COOPERATIVE WITH STAFF AND PEERS, AND COMPLIANT WITH UNIT RULES. PT IS OFTEN IN MILIEU, STAYING IN THE PERIPHERY, NOT INTERACTING MUCH WITH PEERS. WILL INTERACT WITH STAFF, ESPECIALLY WHEN DIRECTLY ENGAGED. MOOD IS STABLE, AFFECT IS EUTHYMIC TO FULL RANGE, APPEARS AT TIMES LETHRGIC - SLEEPING IN PT ROOM ON OCCASION. COMMUNICATION IS ORGANZIED AND APPEARS NORMAL IN ALL RESPECTS, AND APPETITE IS NORMAL. PT DENIES SI AT THIS TIME.
--- NOTE | 2016-08-30 04:18 | NUR ---
SLEPT WELL, AWAKE TO USE IHALER X1, OOB X2 TO BATHROOM. NO COMPLAINTS OFFERED.
[2016-08-30 08:03] VITALS: BP 111/66
--- NOTE | 2016-08-30 11:57 | CP SOUTH PROGRESS NOTE PSYCH ---
Psych (Inpt) Progress Note Progress Note Include the following elements, when applicable: Involvement in the active treatment of the patient with behavioral observations of the patient and the patient's response to the treatment. Review of the ongoing treatment process in the context of the treatment plan. Indication of how multi-disciplinary staff members are carrying out the treatment plan. Plans for future interventions and recommendations for revision of the treatment plan. Liaison with other physicians/providers. Progress Note: PSYCHIATRIST NOTE, 08/30/2016: I discussed this patient's slow progress to date, current mental status, treatment and discharge planning with staff team today in the daily morning SHAMAR and Clarissa Stone LCSW, and I met with him together in individual session. Patient is still obsessed with the small amount of money he "owes" several acquaintances but asserts this is NOT money he owes them for "drugs;" the total amount he owes to 5 individuals comes to a grand total of $250.00 which he claims to be willing and able to pay as soon as he has access to his accounts. Patient had left me a message yesterday written in his own hand which read "I'm sorry for acting the way I have. Please forgive me. I just don't know up from down it seems. I want to be better and I want help. Sincerely, Malick Olvera." We discussed the very close association between the "mistakes" he has made and his ongoing and intensifying abuse of crack cocaine. He continues to express willingness to enter residential rehab and eventually relocate to [place] with or near his father; we were going to have a telephonic conference with father today, but this has been now scheduled for a mutually agreed upon time tomorrow morning, 02/2017.
--- NOTE | 2016-08-30 12:04 | NUR ---
PT IS PRESENT WITHIN THE COMMUNITY, SOCIAL WITH PEERS AND STAFF, C/O WHEEZING (NO ACUTE DISTRESS) AND [facility]C ORDERED AND RESPIRATORY ALREADY ON THE UNIT AND VISITED PT, MEDICATION COMPLIANT, CALM, RESPECTFUL AND PLEASANT, TALKATIVE TODAY, MOOD STABLE WITH FULL RANGE AFFECT.
[2016-08-30 12:16] VITALS: BP 129/73
--- NOTE | 2016-08-30 12:21 | SOCIAL WORKER PROG NOTE PSYCH ---
Social Work Progress Note Progress Note Referrals faxed to [facility] and [facility].
--- NOTE | 2016-08-30 13:29 | SOCIAL WORKER PROG NOTE PSYCH ---
Social Work Progress Note Progress Note Malick shared that he is feeling good today. Dr. Klein and I met with Malick together. Malick shared that he is ready to go home. Dr. Klein challenged him on this, stating that the same pattern of returning home and nothing being different isn't working. Dr. Klein would like to see Malick go to residential rehab. Malick had a couple of concerns related to being referred. 1) Concerned about not losing his housing and 2) Wanting to pay back a couple of people he owes money to before he leaves. Due to Malick's insurance he would need to be referred to a rehab that accepts Medicare. Signed releases for [facility] and [facility]. Clinical was faxed to those rehabs. I gave him the number to call Timmy Dooley. Malick called his Dad and set up a time to have our phone conference for tomorrow at 11am. Malick spoke with Timmy Dooley. They put him on a waiting list and asked that clinical be faxed. According to Malick the list is at least 2 weeks. He said he would call daily to check status. I faxed clinical requested.
[2016-08-30 16:13] VITALS: BP 136/67
[2016-08-30 20:08] VITALS: BP 119/66
--- NOTE | 2016-08-30 20:52 | NUR ---
PT IS VISIBLE ON UNIT, MOSTLY STAYING TO HIMSELF AND ROAMING AROUND COMMUNITY. VERY COOPERATIVE AND COMPLIANT WITH STAFF. NO COMPLAINTS OR SI REPORTED. PT HAS A STABLE MOOD AND FULL RANGE AFFECT.
--- NOTE | 2016-08-31 07:16 | NUR ---
PATIENT AWAKE A COUPLE OF TIMES, BUT OVERALL SLEPT BETTER THAN USUAL...PRN ALBUTEROL INHALER GIVEN AT 0250 FOR SOB/WHEEZING.
[2016-08-31 08:25] VITALS: BP 118/69
--- NOTE | 2016-08-31 11:43 | SOCIAL WORKER PROG NOTE PSYCH ---
Social Work Progress Note Progress Note Malick gave me a list of people this morning (5) that he owes money to and how much. I told him I would give it to the doctor in team meeting and discuss it. Malick, Dr. Klein and I called his Father in [place] together. Mr. Olvera was very supportive of Malick on the phone and stated that he would love to have Malick live closer to him, but he could not live with him directly. His won't allow it. Mr. Olvera would like to see Malick go to a rehab and then when done with rehab possibly look at a place near him. He lives near [facility]. He is retired for the most part, but sounded as if he would like to help Malick find a job. He appears very willing to help him. Talked about referrals made to some [place] rehabs, but opportunities are limited based on his insurance being Medicare and him being on Methadone. Malick stated he would be willing to come off the 40mg of Methadone. That would make finding a place a little easier possibly. Dad isn't aware of any rehabs. We talked about each of us looking into it further. I contacted Julio Cesar from [facility] who has a rehab in [facility]. Typically their program accepts commercial insurance, but sometimes do scholarships. Julio Cesar was willing to look to see if he could get a scholarship bed available for Malick. He requested to speak with Malick's Father as well. Malick was in agreement to give him his Dad's number. Julio Cesar stated he would call Dad and call me back. Speaking with Julio Cesar later, we found out that a full scholarship could be awarded if he was willing to come. He said Dad was willing to pay for the flight down there. The rehab is located about an hour and 45 minutes from his Dad' s house. Set up a phone screening for 11am tomorrow [phone] and faxed a clinical packet ([phone]). Talked to Malick about the possibility of going on a full scholarship. He was surprised and in shock over the news. He is excited, but anticipating some barriers with his van and getting his ID from the store batch blender he owes money to. He said he called his Brother and his brother sounded aggrevated by his requests to help. I told him we would let him cool off and call tomorrow if needed. Encouraged him to focus on one step at a time.
[2016-08-31 12:07] VITALS: BP 116/69
--- NOTE | 2016-08-31 12:57 | NUR ---
PT IS COMPLIANT AND COOPERATIVE. MOOD IS STABLE WITH A CONSTRICTED AFFECT. PT DENIES SI AT THIS TIME, NO COMPLAINTS OFFERED. PT IS PRESENT ON THE UNIT AND IS INTERACTING WTIH PEERS AND STAFF. PT IS ATTENDING GROUPS. VITALS ARE STABLE, APPETITE IS GOOD. BLOOD SUGAR AT 0800 WAS 254.
--- NOTE | 2016-08-31 15:51 | CP SOUTH PROGRESS NOTE PSYCH ---
Psych (Inpt) Progress Note Progress Note Include the following elements, when applicable: Involvement in the active treatment of the patient with behavioral observations of the patient and the patient's response to the treatment. Review of the ongoing treatment process in the context of the treatment plan. Indication of how multi-disciplinary staff members are carrying out the treatment plan. Plans for future interventions and recommendations for revision of the treatment plan. Liaison with other physicians/providers. Progress Note: PSYCHIATRIST NOTE (TELEPHONIC/CONFERENCE CALL FAMILY MEETING), 08/31/2016: I discussed this patient's progress to date, current mental status, treatment and discharge planning with staff team today in the daily morning SHAMAR and Clarissa Stone LCSW, the patient and I made a conference telephone call to patient's father who lives in [place]. Patient has often expressed how much he loves and respects his father, as well as his wish to "one day" join father in [place] and live close to each other and possibly even work together (once told me he wanted a panel truck for "their" work together to read on the side "Malick and Father"). I would have to say that speaking with patient's father on the telephone today I see some of the reasons that patient has so high and warm and regard for the man; father showed genuine and appropriate concern for his son's welfare, safety and future well-being, emphasizing, as we have tried to do, the centrality of patient controlling his substance use/abuse issues to any positive plans he has in mind for the future, that "no one can help you if you don't do this for yourself [get clean and stay clean from drugs]." Father was inviting but clear that though he would do everything he can for his son and try to "connect him with the right people," patient would not be able to live with him ("my wouldn't stand for it"); nonetheless, father was sincerely inviting to patient, sounded like he really would like nothing better than to have him close by and interacting with him frequently. We discussed looking for a residential rehab in [place] and the increased difficulty in finding a venue that would allow into their program a resident/client who is currently on methadone; chelo was the one to suggest that his son "get off that stuff as soon as you can." In a subsequent discussion with Ms. Stone and myself, patient agreed to taper away current relatively low dose methadone maintenance therapy ( 40mg/day), starting by cutting dose tomorrow, 09/01/2016, to 30mg, with goal of giving last tapering dose by 09/05/2016; patient was confident he would be able to sustain such a sharp decrement in methadone, perhaps over-confident, boasting "I once came off 50mg-a-day 'cold turkey.'"
[2016-08-31 19:49] VITALS: BP 116/63
--- NOTE | 2016-08-31 21:40 | NUR ---
PT IS CALM, COOPERATIVE WITH STAFF AND PEERS, AND COMPLIANT WITH UNIT RULES. PT IS BOTH IN AND OUT OF [place]IE[place]. SLIGHTLY LETHRGIC, SLEEPING IN PT ROOM AT DIFFERENT TIMES THROUGHOUT EVENING. WHILE IN MILIEU PT INTERACTS WELL WITH OTHERS. MOOD IS STABLE, AFFECT IS EUTHYMIC TO FULL RANGE, COMMUNICATIONIS ORGANIZED AND APPEARS NORMAL IN ALL RESPECTS, AND APPETITE IS NORMAL. PT DENIES SI AT THIS TIME.
[2016-09-01 07:41] VITALS: BP 110/67
--- NOTE | 2016-09-01 07:47 | NUR ---
PT UP EARLY AFTER SLEEPING IN LONG STRETCHES. PT EXCITED AT POSSIBLITY OF REHABING IN [facility] AND LIVING NEAR HIS DAD DOWN THERE.
[2016-09-01 07:55] VITALS: BP 110/67
[2016-09-01 12:11] VITALS: BP 122/64
--- NOTE | 2016-09-01 13:41 | NUR ---
PT IS STABLE WITH FULL RANGE OF AFFECT, BRIGHT AND PLEASANT TODAY. PT HAS BEEN ATTENDING ALL GROUPS. VERY EXCITED TO BE ATTENDING A REHAB IN [place] CLOSER TO WHERE HIS FATHER LIVES. FEELS THOUGH THIS WILL BE A "FRESH START". VERY POSOTIVE OUTLOOK. VS ARE STABLE AND DENIES ANY SI/HI TO THIS MHW.
--- NOTE | 2016-09-01 13:41 | SOCIAL WORKER PROG NOTE PSYCH ---
Social Work Progress Note Progress Note Malick completed an assessment with [facility] with Kvng. I was present he was open to sharing information about his drug history and issues with SI and past attempt. Kvng said he will be looking up flight information out of [place] and we could talk later. Malick is very appreciate and excited for this opportunity. We called his Brother Baron to talk about it and see if he can help. 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 He is not willing to go to Malick's apartment, but he is willing to bring Malick from his house to the airport if it's a later flight between 6-10pm. I told him we would get back to him and let him know. Called Kvng at [facility]. Kvng could only find a flight out of [place] or [place] leaving at 7pm. He booked the flight at [place]. Malick's Brother will either have to be willing to accomadate him earlier or Malick will take an Uber from his Brother's house. He is planning to leave his van there.
[2016-09-01 15:55] VITALS: BP 125/69
--- NOTE | 2016-09-01 17:23 | CP SOUTH PROGRESS NOTE PSYCH ---
Psych (Inpt) Progress Note Progress Note Include the following elements, when applicable: Involvement in the active treatment of the patient with behavioral observations of the patient and the patient's response to the treatment. Review of the ongoing treatment process in the context of the treatment plan. Indication of how multi-disciplinary staff members are carrying out the treatment plan. Plans for future interventions and recommendations for revision of the treatment plan. Liaison with other physicians/providers. Progress Note: PSYCHIATRIST NOTE, 09/01/2016: I discussed this patient's slow progress to date, current mental status, treatment and discharge planning with staff team today in the daily morning SHAMAR and Clarissa Stone LCSW, and I met together with him. Patient can still hardly believe his good fortune at having received a "full scholarship" to a residential rehab in [place] only about 90 minutes from where his father resides. He had an apparently successful telephone interview with the facility today which confirms his acceptance there and is currently making plans to travel to [place] via airplane on 09/06/2016; in a telephone conference with patient and Ms. 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 Patient plans to go briefly to his apartment to retreive what he will need for an extensive, perhaps permanent, relocation to [place] and will then drive to his brother's home, leave his own vehicle and be driven to the airport by brother. Patient denies any auditory phenomena/ hallucinations and is tolerating current medication regimen well. His next Q2W dose of Risperdal Consta will be due on 09/09/2016 and this must be arranged for at the [place] residential rehab program; after he receives that dose it may be possible to begin slow tapering away of oral Risperdal (currently at 3mg HS). Serum [place] level this morning was only 0.6mEq/L on a dose of 600mg/day; patient is willing to titrate dose up to 900mg daily over the coming weekend with next Li+ level to be drawn early next week. Methadone taper is going well thus far; today patient has tapered from 40mg to 30mg; plan for tomorrow is reduction to 20mg, on 09/03/2016 down to 15mg, on 09/04/2016 to 10mg and to receive last tapering dose of 5mg in AM 09/05/2016, if the taper is well tolerated; patient claims "in the past I have gone from 50mg of methadone a day 'cold turkey' to none without a problem..."
--- NOTE | 2016-09-01 17:44 | SOCIAL WORKER PROG NOTE PSYCH ---
Social Work Progress Note Progress Note Malick completed an assessment with [facility] with Kvng. I was present he was open to sharing information about his drug history and issues with SI and past attempt. Kvng said he will be looking up flight information out of [place] and we could talk later. Malick is very appreciate and excited for this opportunity. We called his Brother Baron to talk about it and see if he can help. Baron is in agreement to get Malick's double bottom driver's license at the store where Malick left it. He is not willing to go to Malick's apartment, but he is willing to bring Malick from his house to the airport if it's a later flight between 6-10pm. I told him we would get back to him and let him know. Called Kvng at [facility]. Kvng could only find a flight out of [place] or [place] leaving at 7pm. He booked the flight at [place]. Malick's Brother will either have to be willing to accomadate him earlier or Malick will take an Uber from his Brother's house. He is planning to leave his van there.
[2016-09-01 19:57] VITALS: BP 125/74
--- NOTE | 2016-09-01 21:27 | NUR ---
PT IS CALM, COOPERATIVE WITH STAFF AND PEERS, AND COMPLIANT WITH UNIT RULES. PT IS SLIGHTLY LETHARGIC WHILE IN MILIEU, AND AT TIMES IS IN PT ROOM SLEEPING. WHILE IN MILIEU PT PACES AT TIMES, BUT WILL INTERACT WILL WITH OTHERS. MOOD IS STABLE, AFFECT IS EUTHYMIC TO FULL RANGE, COMMUNICATION IS ORGANIZED AND APPEARS NORMAL IN ALL RESPECTS, AND APPETITE IS NORMAL. PT DENIES SI AT THIS TIME.
[2016-09-02 06:31] VITALS: BP 126/67
[2016-09-02 12:12] VITALS: BP 120/67
--- NOTE | 2016-09-02 13:57 | NUR ---
PT VISIBLE FOR PART OF THE DAY IN THE MILIEU. HIS GOAL WAS TO STAY OUT IN THE COMMUNITY MORE. PT HAS SOME INTERACTIONS WITH PEERS, AND STAFF. HE IS COOPERATIVE WITH STAFF DIRECTION, AND DENIES THOUGHTS TO HURT HIMSELF WHEN ASKED.
[2016-09-02 16:07] VITALS: BP 121/65
--- NOTE | 2016-09-02 16:55 | CP SOUTH PROGRESS NOTE PSYCH ---
Psych (Inpt) Progress Note Progress Note Include the following elements, when applicable: Involvement in the active treatment of the patient with behavioral observations of the patient and the patient's response to the treatment. Review of the ongoing treatment process in the context of the treatment plan. Indication of how multi-disciplinary staff members are carrying out the treatment plan. Plans for future interventions and recommendations for revision of the treatment plan. Liaison with other physicians/providers. Progress Note: The patient was seen for follow-up during continuous care. He's well known to us from previous inpatient/IOP/outpatient treatments. the patient was discussed with the nursing staff and interviewed individually. According to the nursing staff he has been appropriately interacting with peers and staff members, has been compliant with medication, did not have any physical complaints or inappropriate behavior. He is a 46 years old, , single male, with long history of alcohol and substance use/abuse/dependence who was admitted for depression with suicidal ideation and plan. Is a tall, average build, male, fairly well groomed, cooperative. He describes his mood as "great". He is very happy to report that he was accepted for an inpatient rehabilitation program in [place], that he is all set with the plane tickets and plans on discharge to go and "grab a bag, call an Uber and go to the airport." He firmly stated that he will not return to [place]. Patient denies depression, there is anxiety relative to the impending change, he denies suicidal/homicidal ideation, auditory/visual hallucinations or side effects from the medications. We will continue present management and the patient will be discharged to follow -up with the inpatient rehabilitation program in [place]. While on the unit he will be followed up daily.
[2016-09-02 20:09] VITALS: BP 130/63
--- NOTE | 2016-09-02 21:36 | NUR ---
PT IS VISIBLE ON UNIT, SOCIALIZING WITH PEERS AND WATCHING TV. COOPERATIVE AND COMPLIANT WITH STAFF. NO COMPLAINTS OR SI REPORTED. PT HAS A STABLE MOOD AND FULL RANGE AFFECT.
[2016-09-03 07:52] VITALS: BP 111/65
[2016-09-03 12:00] VITALS: BP 101/60
--- NOTE | 2016-09-03 13:32 | CP SOUTH PROGRESS NOTE PSYCH ---
Psych (Inpt) Progress Note Progress Note Include the following elements, when applicable: Involvement in the active treatment of the patient with behavioral observations of the patient and the patient's response to the treatment. Review of the ongoing treatment process in the context of the treatment plan. Indication of how multi-disciplinary staff members are carrying out the treatment plan. Plans for future interventions and recommendations for revision of the treatment plan. Liaison with other physicians/providers. Progress Note: The patient was seen for f/u during continuum of care. He continues to be cheerful, pleasant, interacting well with peers and staff members. He continues to be very motivated and excited about his move into the rehabilitation facility in [place]. Malick reports good mood, denies suicidal/homicidal ideation, auditory/visual hallucinations or side effects from the medication. c/o increased anxiety because he will have to get to the airport in time, then fly, it is all exciting but also scary for him. Says that clonidine helped him with anxiety in the past and is willing to take it again. He is also requesring a change in the strength and frequency of the nicorette gum"I want a cigarette so badly, and of course I can't have it." We will continue present management and follow up with the discharge plan just mentioned. Replaced nicotine gum 4 mg q2 h to 2 mg hourly with max of 12 doses/24 h.and added the Clonidine for opioid withdrawal(he is tapering off methadone as well, tolerating it very well as per the nursing staff's report).
--- NOTE | 2016-09-03 13:50 | NUR ---
PT VISIBLE MOST OF THE DAY IN THE MILIEU. HE HAD NO ATTENDENCE IN PLANNING MEETING THIS MORNING, SO NO TREATMENT GOAL WAS MADE. HOWEVER, PT DID GO TO THE OTHER TWO GROUPS TODAY. PT WAS ANXIOUS AT ONE POINT TODAY, PERSEVERATING ABOUT GETTING HIS MONEY FROM THE SAFE SO HE CAN BACK A PEER FOR COFFEE. PT SEEMED A LOT BETTER AFTER HIS MONEY CAME DOWN, SO HE COULD PAY BACK HIS PEER. PT HAS BEEN COMPLIANT OF THE RULES OF THE UNIT. HE DENIES THOUGHTS OF HURTING HIMSELF WHEN ASKED.
[2016-09-03 16:04] VITALS: BP 126/73
[2016-09-03 20:30] VITALS: BP 134/66
--- NOTE | 2016-09-03 22:52 | NUR ---
PT HAS BEEN QUIET AND WITHDRAWN. DURING WRAP UP HE EXPRESSED HIS CONCERNS REGARDING HIS DC PLAN AND WORRIES ABOUT NOT KNOWING WHAT TO EXPRESS IN [place]. HE APPEARS STABLE AND DENIES ANY THOUGHTS OF SI AT THIS TIME.
--- NOTE | 2016-09-04 06:37 | NUR ---
PATIENT WAS AWAKE SEVERAL TIMES DURING THE NIGHT, WAS GIVEN PRN SEROQUEL 25MG AT 2222 AND 2359; HE WAS GIVEN ALBUTEROL INHALER AT 0308, AND PRN RISPERDAL 0.5MG AT 0456.
[2016-09-04 08:08] VITALS: BP 115/68
[2016-09-04 12:11] VITALS: BP 110/58
--- NOTE | 2016-09-04 14:08 | NUR ---
PT IS COMPLIANT WITH HIS MED REGIME AND TREATMENT PLAN. HE IS LOOKING FORWARD TO GOING TO REHAB AND WHEN ASKED HE DENIED ANY THOUGHTS OF SUICIDE. HE DID REPORT FEELING SOME WITHDRAWAL SYMPTOMS AND USED PRN CLONIDINE X2 TODAY WITH GOOD EFFECT.PT IS CALM AND COOPERATIVE
--- NOTE | 2016-09-04 15:23 | SOCIAL WORKER PROG NOTE PSYCH ---
Social Work Progress Note Progress Note Malick seems to be doing well. Feeling a little of the withdrawal from the Methadone taper. Talked about his discharge plans for tomorrow. He will need to leave around noon to be home to pack and head to his Brother's to drop off the van. He would like to be at [place] [facility] by 5pm. He continues to feel excited about the opportunity. I asked if I could speak with his Brother Baron directly about his plans for tomorrow. He said ok. He was worried though that his Brother would be upset with me for asking if he could take him to the airport. I called Baron and we reviewed Malick's plan. I asked if he would be available to get Malick to the airport? He said no and that he is working. He reports Malick's ID will be available for him at his house and he will have access to it even if he's not at home. Malick and I called Sanchez at [facility]. They assured Malick that a tech would be there with a sign to greet him off the plane tomorrow night. He will not need any medications or any called in. Their doctors will see him the following morning for all of his meds. I will just need to fax the W-10 to [phone]. Malick can bring a carry on bag and check a bag if needed.
[2016-09-04 16:36] VITALS: BP 112/59
[2016-09-04 19:57] VITALS: BP 106/59
--- NOTE | 2016-09-04 21:37 | CP SOUTH PROGRESS NOTE PSYCH ---
Psych (Inpt) Progress Note Progress Note Include the following elements, when applicable: Involvement in the active treatment of the patient with behavioral observations of the patient and the patient's response to the treatment. Review of the ongoing treatment process in the context of the treatment plan. Indication of how multi-disciplinary staff members are carrying out the treatment plan. Plans for future interventions and recommendations for revision of the treatment plan. Liaison with other physicians/providers. Progress Note: PSYCHIATRIST NOTE, 09/04/2016: I discussed this patient's slow progress to date, current mental status, treatment and discharge planning with staff team today in the daily morning ITTM and also met with him again myself in individual session. Patient has been accepted for admission to residential rehab in [place] tomorrow, 09/05/2016 and flight from [facility] is being booked today. The plan is for him to travel to his apartment in [place] briefly first to pack some needed clothing and then proceed to his brother's home in [place], from where the latter will drive him directly to [place] to make the late afternoon flight. I am concerned about patient's plan to go by himself to rock picker his things, that he might lose his focus, be tempted to impulsively buy some crack cocaine. However, all avenues to enlist someone to accompany him on this short trip have been explored without any favorable response; brother continues to insist he "won't go to [patient's] apartment" under any circumstances for some personal reason. Patient and I have , therefore, worked out our own plan for him to be "accompanied" on his trip to [place] and [place]; I will telephone him at least every 30 minutes to determine where he is and what is going on, where he is in the process; patient has provided me with his cellphone number and I have given him my telephone number here at [facility] so he can get back to me if he can't answer his cellphone because he is "on the road" and to let my know as soon as he arrives at his brother's place. Patient is currently euthymic, future-oriented and excited about having this opportunity for residential rehab near his father's home in [place].
--- NOTE | 2016-09-04 22:07 | NUR ---
PT IS VISIBLE ON UNIT, WATCHING TV AND SOCIALIZING WITH PEERS. COOPERATIVE AND COMPLIANT WITH STAFF. ATTENDED WRAP UP MEETING AND PARTICIPATED. NO COMPLAINTS OR SI REPORTED. PT HAS A STABLE MOOD AND FULL RANGE AFFECT.
--- NOTE | 2016-09-05 07:30 | NUR ---
PT HAD BENADRYL 50 PRN AT 0150- PT SLEPT 3 HOURS AFTERWARDS. [facility]. PT WITH BRONCHOSPASM AT 0500- GIVEN VENTOLIN INHALER WITHOUT MUCH EFFECT. HOSPITALIST CALLED X 3, RESPIRATORY THERAPIST CALLED X 3, NURSING MANDOLIN REPAIRER. USER EXPERIENCE TEAM LEAD SAW PT AND ORDERED MEDS. RESPIRATORY THERAPY GAVE TREATMENT AT 0630. PT BREATHING EASIER AFTER TREATMENT.
--- NOTE | 2016-09-05 08:03 | NUR ---
PT IS SCHEDULED FOR D/C TO [facility] TODAY. HE EXPECTS TO ENTER [facility] IN [place].HE REPORTS IMPROVEMENT IN HIS MOOD AND IS EXCITED ABOUT THIS OPPORTUNITY . HE DENIES ANY THOUGHTS OF SUICIDE OR SELF HARM. PT IS GIVEN EDUCATION R/T MANAGING HIS MOOD D/O AND SUBSTANCE ABUSE D/O AND ON PREVENTING SUICIDE
[2016-09-05 08:23] VITALS: BP 114/67
--- NOTE | 2016-09-05 09:37 | Event Note ---
Event Note Event Note: The medical team was called overnight to assess the Acute hypernetilation . The patient never required any supplemental oxygen . The RN notified the clinical rehab liaison PCP Dr Luna and he recommended to hold off on the evaluataion. The patint is being discharged today with the Steroid 40 mg for 3 days with no camilo. The patient was awake ,alert and oriented. He was saturating above 95 on R.A with no accessory muscle use. I notifed the RN that if any further question,the medical team can be consulted again.
--- NOTE | 2016-09-05 10:32 | NUR ---
DR WALLACE SPOKE WITH PT THIS MORNING. HE WILL TAKE 3 DAYS OF PREDNISONE AND THEN DISONTINUE. HE WILL GO HOME ON HIS ALBUTEROL INHALER PRN
[2016-09-05] MEDS ORDERED: RISPERDAL1 M1 PO (11:36)
[2016-09-05] MEDS ORDERED: PREDNISONE20 M1 PO (11:36)
[2016-09-05] MEDS ORDERED: LITHIUM CARBON300 M4 PO ×2 (11:36)
[2016-09-05] MEDS ORDERED: RISPERDAL25 MG/2 ML IM (11:36)
--- NOTE | 2016-09-05 12:49 | CP SOUTH PROGRESS NOTE PSYCH ---
Psych (Inpt) Progress Note Progress Note Include the following elements, when applicable: Involvement in the active treatment of the patient with behavioral observations of the patient and the patient's response to the treatment. Review of the ongoing treatment process in the context of the treatment plan. Indication of how multi-disciplinary staff members are carrying out the treatment plan. Plans for future interventions and recommendations for revision of the treatment plan. Liaison with other physicians/providers. Progress Note: PSYCHIATRIST NOTE (DISCHARGE), 09/05/2016: I discussed this patient's progress to date, current mental status, treatment and discharge plans with staff team today in the daily morning ITTM and also met with him again myself in individual session prior to discharging him to residential rehab in [place]. Patient continues to be extremely pleased with the "complete scholarship" he was given to residential rehab at [facility]. He is currently euthymic, bright and cheerful in affect, quite future-oriented and (cautiously) positive/hopeful, showing no evidence of suicidal or homicidal ideation, plans, intent or impulses and well aware of his safety plan should he ever in future come to believe himself at acute risk of self-harm or of harming others. We had tried to find a way that patient would be accompanied "[id number]" but after every avenue was exhausted, with patient's route from here to [place] (to pack for the trip to [place]) and from there to [place] where his brother will meet him and drive him to [facility] for an early evening flight today. Patient and I went over the plan we had worked out to deal with the above as best we can; I planned to telephone him on his cellphone ([phone]) "every half hour" until he make it to his brother's place. My first call was at 12:40; patient was almost home having stopped to buy cigarettes; I did certified rehabilitation counselor him about this but compared to the acute effects crack , cocaine, amphelamines, benzos. and opioids have been having on him we agreed to a "time table" to start cutting down on smoking; I next reached him at 1:00pm and patient picked up on the second ring; he was packing his clothes ("enough for a week...I'll buy '[place] Clothes"after I get there"); at l:30pm he was on the way to brother's home and he called my again after he got there at 1:45pm; he had "avoided temptations, the drug dealers" when he went alone to [place]! He was justifiably pleased with himself for this and expressed his determination to use this unexpected opportunity to begin to turn his life trajectory around, reconnect with father, maintain early recovery and finding steady work. It was not necessary to call in medications for patient as they all will be provided by the residential rehab program he is entering in [place] later today. At time of discharge he was taking: [place] carbonate, 300mg daily in AM & 600mg evenings (900mg/day); mood stabilization Risperdal, 3mg/nightly (to clarify thoughts) Risperdal Consta, 25mg I.M. Q2W; next due on 09/09/2016 (to clarify thoughts) Remeron, 7.5mg HS (sleep induction/anxiety at bedtime) and: Metformin, 500mg 2x/day (diabetes/glucose control) Januvia, 100mg daily (diabetes) Ventolin inhaler, 2 puffs Q4H PRN (SOB/wheezing) prednisone, 40mg/day for 2 days--09/06, 09/07/2016 & stop (promote better breathing)
--- NOTE | 2016-09-05 12:53 | DISCHARGE SUMMARY REPORT-PSYCH ---
Visit Information Visit Dates/Diagnosis' Admission Date: 08/24/16 Discharge Date: 09/05/16 Reason for Admission: "I'm hearing voices saying 'we're coming to get you, coming to get you...'" Psy Discharge Primary Diag: Polysubstance Dependence, Schizoaffective Disorder; MRE Mixed/Depressed with psychotic features (including command type auditory hallucinations and paranoid fears of being pursued and killed) Opioid Use Disorder, severe (heroin) Stimulant Use Disorder, severe (primarily crack cocaine and "powder") but amphetamine use as well Sedative/Hypnotic/ Anxiolytic Use Disorder, primarily benzodiazepines Cocaine Intoxication Amphetamine Intoxication Benzo. Intoxication Methadone "Intoxication" (but was on methadone maintenance at time of admission but tapered off during this admission) Psy Discharge Secondary Diag: Diabetes Type II Hypertension Asthma Nicotine Use Disorder Hospital Course Significant Lab Findings: glucose = 162; BUN = 23; sodium = 135; chloride = 97; cholesterol = 221, triglycerides = 406, direct LDL = 137.34; T4 = 12.6; WBC = 10.9; YVES = less than 10.0; urine for drugs of abuse--positive for amphetamines (greater than 1450ng/ ml), benzodiazepines (greater than 800), cocaine (679ng/ml) and methadone ( greater than 735ng/ml); patient was on methadone maintenance at time of presentation for admission but tapered off methadone over course in hospital (for complete details of all normal range laboratory data from this admission, see the electronic medical record) Course Complications: none Consultations: patient was seen for an admission medical H&P and followed medically during this admission by Rambo Luna M.D. Allergies: Coded Allergies: trazodone (Severe, PRIAPISM 12/25/15) hydroxyzine (From Vistaril) (Intermediate, RESTLESSNESS, SHAKINESS 12/25/15) diphenhydramine (From BENADRYL) (Mild, shaky but not as bad as Vistaril 02/02/16 ) ibuprofen (not to take ibuprofen/Motrin while on [place] prophylaxis 02/03/16) Hospital Course/TX Response: This patient continues to present increasingly frequently in a highly disorganized, delusional state, often experiencing frightening auditory type hallucinations in the context of stopping ("running out of") his major psychotropic medications which do appear to be beneficial when he is able/ willing to take them regularly/reliably and on a "run" of crack cocaine and multiple substances (e.g. in [employer] was intoxicated with cocaine, amphetamines and benzodiazepines IN ADDITION TO "intoxication" with methadone which he is taking to help stay away from heroin). He more often than not either drops out of aftercare upon discharge from [facility] or fails to f/u at all, rapidly running out of his meds. At this rate, likely sooner rather than later patient will take a possibly inadvertent overdose and/or do something dangerously irrational in a state of drug intoxication which will eventuate in significant morbidity or even mortality. The way to alter the above trajectory in a positive and possibly lifesaving manner has thus far eluded us. Impacting patient's living situation/ environment through some form of closer supervised or senior care residence might be of benefit, but patient is just as likely to get into some sort of conflict with staff or other residents which will have a significantly destabilizing effect on his mental state. Patient had gone to visit his father shortly after most recent [facility] discharge and reports a very good time spent with parent; perhaps we could reach out to patient's father in a more direct manner to see if there might be some way for patient to relocate to father's residence or his own place close by so that he could fulfill his often expressed desire to "go into business with my father." Patient was discharged to residential rehab in [place]. Patient continues to be extremely pleased with the "complete scholarship" he was given to residential rehab at [facility] to [facility]. He is currently euthymic, bright and cheerful in affect, quite future-oriented and ( cautiously) positive/hopeful, showing no evidence of suicidal or homicidal ideation, plans, intent or impulses and well aware of his safety plan should he ever in future come to believe himself at acute risk of self-harm or of harming others. We had tried to find a way that patient would be accompanied "door-to- door" but after every avenue was exhausted, with patient's route from here to [place] (to pack for the trip to [place]) and from there to [place] where his brother will meet him and drive him to [facility] for an early evening flight today. Patient and I went over the plan we had worked out to deal with the above as best we can; I planned to telephone him on his cellphone ) "every half hour" until he make it to his brother's place. My first call was at 12:40; patient was almost home having stopped to buy cigarettes; I did elder counselor him about this but compared to the acute effects crack , cocaine, amphelamines, benzos. and opioids have been having on him we agreed to a "time table" to start cutting down on smoking; I next reached him at 1:00pm and patient picked up on the second ring; he was packing his clothes ("enough for a week...I'll buy '[place] Clothes"after I get there"); at l:30pm he was on the way to brother's home and he called my again after he got there at 1:45pm; he had "avoided temptations, the drug dealers" when he went alone to [place]! He was justifiably pleased with himself for this and expressed his determination to use this unexpected opportunity to begin to turn his life trajectory around, reconnect with father, maintain early recovery and finding steady work. Discharge HBIPS - Tobacco Use Treatment Offered Post DC Medications Offered: Refused Tob Medication Tx Post DC Tobacco Treatment Plan: Refused Tobcco Tx Pgm - EtOH/Drug Use D/O Treatment Offered Post DC Medications Offered: NA-No EtOH/Drug Use D/O Post DC EtOH/SubAbuse TX Plan: NA-No EtOH/Drug Use D/O Metabolic Screening - Screen if on a Neuroleptic Medication - Metabolic screening should include: - Blood Pressure, BMI, Glucose or Hgb A1c, & a - Lipid profile from within the past 365 days. Metabolic Screening () Not Applicable, patient not on a neuroleptic. OR ([x]) Patient on a neuroleptic(s) . Enter below results for Glucose or Hemoglobin A1C, and lipid panel if obtained during the last 365 days. BMI: Blood Pressure: 114/67 Laboratory Results (If applicable): [X] glucose = 162 (all drawn on 08/22/2016) cholesterol = 221 triglycerides = 406 HDL = 49 direct LDL = 137.34 Discharge Instructions General Discharge Information Discharge Medications: Discharge Medications (dose, route, frequency, indications): It was not necessary to call in medications for patient as they all will be provided by the residential rehab program he is entering in [place] later today. At time of discharge he was taking: [place] carbonate, 300mg daily in AM & 600mg evenings (900mg/day); mood stabilization Risperdal, 3mg/nightly (to clarify thoughts) Risperdal Consta, 25mg I.M. Q2W; next due on 09/09/2016 (to clarify thoughts) Remeron, 7.5mg HS (sleep induction/anxiety at bedtime) and: Metformin, 500mg 2x/day (diabetes/glucose control) Januvia, 100mg daily (diabetes) Ventolin inhaler, 2 puffs Q4H PRN (SOB/wheezing) prednisone, 40mg/day for 2 days--09/06, 09/07/2016 & stop (promote better breathing) Multiple Neuroleptics: ([X]) Not Applicable OR Document below three failed attempts at monotherapy, or a plan to taper to monotherapy, or augmentation of Clozapine. () Patient's Diet: heart heathy/diabetic Patient's Activity: without restrictions DC Disposition: to residential rehab in [place] Recommendations: Following an interval of outpatient stabilization, I would recommend attempt at tapering current dose of Risperdal. Referred To: Patient was referred directly to residential rehab at [facility] to [facility] in [place], [place] and took a flight there on the date of discharge, 2016 (and his arrival at the rehab center that night was confirmed by staff there). Copies To: MADISON LINN,RAMBO
--- NOTE | 2016-09-05 13:09 | SOCIAL WORKER PROG NOTE PSYCH ---
Social Work Progress Note Progress Note Malick is anxious to go today. Encouraged him to focus a day at a time in [place]. He was planning to call his Dad to remind him of the plan for him to fly in later today. He's upset with his Mother over a cable issue today. He looked happy though and feels that this is a chance to start his life over. Looking to head to his apartment pack and then drop his van off at his brother's house. Gave him my business card and told him to call me when he gets to [place]. Wished him well.
== END 2016-09-05 12:28 | DRG 885 ==
LOC: ERH 19:00 → ERHI 08-24 11:37 → CP SOUTH 08-24 11:37
PROVIDERS: Physician Assistant; Student in an Organized Health Care Education/Training Program; ADMIT Psychiatry & Neurology Addiction Medicine
DX: F31.64 Bipolar disorder, current episode mixed, severe, with psychotic features (principal); F11.20 Opioid dependence, uncomplicated; I10 Essential (primary) hypertension; F15.20 Other stimulant dependence, uncomplicated; F13.90 Sedative, hypnotic, or anxiolytic use, unspecified, uncomplicated; E11.9 Type 2 diabetes mellitus without complications; J45.909 Unspecified asthma, uncomplicated; F17.200 Nicotine dependence, unspecified, uncomplicated
CPT/HCPCS: 36415; 80307; 82436; 93005; 93010; G0463; G0480; J3490